=== PATIENT | male | born 1960 | race Caucasian/White ===

== ENCOUNTER → 2018-05-10 | Outpatient (CLI) | payer BC ==
--- NOTE | 2018-05-10 21:10 | CONS ---
CONSULTATION REASON FOR CONSULTATION: Consultation note for sleep apnea. 57-year-old male patient coming in due to concerns of obstructive sleep apnea. 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 Donovan. His PCP is Dr. Barron. The patient is obese and he has hypertension. Recently was hospitalized for cellulitis of lower extremities. During the same hospital stay, he was found to be a component of CHF with pulmonary edema and fluid overload. Apparently was given diuretics and he did have a short run of ventricular tachycardia nonsustained during sleep without any major hemodynamic compromise or cardiac arrest. He underwent further cardiac testing, results of which are not available to me. However based on the narrated history, the patient does not have any CHF or coronary artery disease based on negative stress test and echocardiogram. The patient was referred to me for sleep apnea evaluation knowing that the patient has some features of LINDA at this point in time. The cellulitis is recovered, lower extremity edema is recovered. He goes to bed around 2:00 p.m. wakes up 8:45 pm. Works at [employer] and his work schedule is between 10:30 pm till 6:30 am in the morning. After he arrives home, he does day-to-day activities and household activities to going to bed around 2:00 pm. He does snore. He has been told to quit breathing at times. He has been feeling more and more fatigued and tired during the day. Concord score is currently at 3. No restlessness in lower extremities. No chest pain or shortness of breath during sleep. PAST MEDICAL HISTORY: Hypertension, obesity, single episode of nonsustained ventricular tachycardia. History of cellulitis lower extremity, recovered, chronic lower extremity edema. PAST SURGICAL HISTORY: Negative. DRUG ALLERGIES: Questionable allergy to VANCOMYCIN. OUTPATIENT MEDICATION: List includes metoprolol 25 mg p.o. b.i.d., Lasix 20 mg p.o. b.i.d., aspirin 81 mg p.o. daily, potassium over the counter and Hyzaar 100/12.5, 1 tablet a day. SOCIAL HISTORY: The patient is a nonsmoker. No history of alcohol. No history of IV drugs. FAMILY HISTORY: Negative for sleep apnea. REVIEW OF SYSTEMS: 12-point review of system was done. No report of insomnia. No choking or gasping sensation at nighttime. No nocturia. No grinding of the teeth. No sleepwalking. No anxiety. No dry mouth. No panic attacks. No heartburn. No sleep talking. No sexual dysfunction. No history of depression. No sleep paralysis. No history of any motor vehicle accidents because of feeling drowsy or sleepy. PHYSICAL EXAMINATION: His current vital signs are as follows. BP is 123/67, pulse 56, respirations 16, temp 97.6, saturation 96% on room air. Weight is 342. Height is 74 inches and Concord score is a 3, BMI is 44.8, neck size 18. General appearance: Calm, comfortable. Head is atraumatic, normocephalic. NECK: Supple. There is no JVD. No goiter or neck masses. LUNGS: Clear to auscultation. HEART: Sounds regular rhythm. Normal S1, S2. No S3, S4. No murmurs. ABDOMEN: Soft, nontender. No organomegaly. EXTREMITIES: No edema. No cyanosis or clubbing. NEUROLOGIC: Alert and oriented x3. There is no focal neurological deficits. PSYCHIATRIC: Negative for anxiety or depression. Skin is negative for wounds or ulceration. IMPRESSION: 1. Obstructive sleep apnea clinically suspected, under investigation, will need a sleep study. 2. Episodes of nonsustained ventricular tachycardia occurred nocturnally during a recent hospital stay. None since. 3. Hypertension. 4. Obesity with a BMI of 44.8. 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 PLAN: 1. Proceed with a screening polysomnogram. 2. Look for nocturnal arrhythmias for any form of sleep breathing disorder. 3. Encourage weight loss. 4. Tight control of cardiovascular risk factors. 5. Will follow. MMODL / IJN: [id number] /
== END | disposition home or self-care (01) ==
LOC: SLEEP 13:41
PROVIDERS: ATTEND Internal Medicine Critical Care Medicine
DX: G47.30 Sleep apnea, unspecified (principal); I10 Essential (primary) hypertension; E66.9 Obesity, unspecified; Z68.41 Body mass index [BMI] 40.0-44.9, adult; Z79.899 Other long term (current) drug therapy; Z79.82 Long term (current) use of aspirin; Z88.1 Allergy status to other antibiotic agents
CPT/HCPCS: 99211

== ENCOUNTER → 2021-12-04 | Outpatient (CLI) | payer BC ==
[2021-12-04 12:25] LABS: HGB 15.7 gm/dL (13.0-17.5); MCH 32.3 pg (25.0-35.0); MCHC 32.7 g/dL (31.0-37.0); MCV 98.9 fL (80.0-100.0); Mean Platelet Volume 7.4; Platelet Count 241 k/uL (150-450); RBC 4.85 m/uL (4.30-5.90); RDW 12.5 % (11.5-15.5); WBC 10.6 k/uL (3.8-10.6)
[2021-12-04 18:21] LABS: African American GFR (CKD) 107.2 (60.0-200.0); Anion Gap 10.8 mmol/L (10.00-18.00); Blood Urea Nitrogen 9.8 mg/dL (9.0-27.0); Carbon Dioxide 27.2 mmol/L (20.0-27.5); Non-African American GFR(CKD) 92.5 (60.0-200.0); Potassium 4.8 mmol/L (3.5-5.5)
== END | disposition home or self-care (01) ==
LOC: LABPAT 11:15
PROVIDERS: ATTEND Internal Medicine Interventional Cardiology
DX: Z01.812 Encounter for preprocedural laboratory examination (principal); I34.0 Nonrheumatic mitral (valve) insufficiency
CPT/HCPCS: 36415; 80051; 82565; 84520; 85027

== ENCOUNTER 2021-12-24 06:22 | Day surgery (SDC) | payer BC ==
[2021-12-22 10:38] VITALS: BMI 35.9
[~2021-12-24 06:22] MED LIST: ALPRAZolam 0.25 MG TAB PO PRN; ALPRAZolam 0.5 MG TAB PO PRN; ASPIRIN 325 MG TAB PO STA; ATORVASTATIN 80 MG TAB PO STA; NITROGLYCERIN SL TABS 0.4 MG TAB SUBLINGUAL PRN; SODIUM CHLORIDE 0.9% 1,000 ML in EMPTY BAG 1 BAG IV SCH
[2021-12-24] MEDS ORDERED: HEPARIN SODIUM,PORCINE 2,500 UNIT in SODIUM CHLORIDE 0.9% 250 ML IRRIGATION PRN (07:00)
[2021-12-24] MEDS ORDERED: HEPARIN SODIUM,PORCINE 10,000 UNIT in SODIUM CHLORIDE 0.9% 1,000 ML IRRIGATION PRN (07:00)
[2021-12-24 07:14] VITALS: TEMP 97.4
[2021-12-24] MEDS ORDERED: VERAPAMIL 2.5 MG/ML 2 ML AMP ONE (07:28)
[2021-12-24] MEDS ORDERED: LIDOCAINE 1% INJ 10MG/ML (20 ML MDV) ONE (07:28)
[2021-12-24] MEDS ORDERED: fentaNYL (PF) 50 MCG/ML 2 ML AMP ONE (07:28)
[2021-12-24] MEDS ORDERED: fentaNYL (PF) 50 MCG/ML 2 ML AMP IV ONE (07:39)
[2021-12-24] MEDS ORDERED: LIDOCAINE 1% INJ 10MG/ML (20 ML MDV) SQ ONE (07:39)
[2021-12-24] MEDS ORDERED: HEPARIN SODIUM 1,000 UN/ML (10ML VL) ONE (07:41)
[2021-12-24] MEDS ORDERED: VERAPAMIL SYRINGE (5 MG/10 ML) INTRAARTER ONE (07:42)
[2021-12-24] MEDS ORDERED: MIDAZOLAM 2 MG/2 ML VIAL IV ONE (07:44)
[2021-12-24] MEDS ORDERED: HEPARIN SODIUM 1,000 UN/ML (10ML VL) IV ONE (08:00)
[2021-12-24 08:07] LABS: O2 Sat Blood Gas 68.9 %
[2021-12-24 08:09] LABS: O2 Sat Blood Gas 69.2 %
[2021-12-24] MEDS ORDERED: IOPAMIDOL-370 125ML BTL INJ ONE (08:10)
[2021-12-24] MEDS ORDERED: RX INFO: IV CONTRAST WAS GIVEN 1 EACH MISC MISCELLANE PRN (08:19)
[2021-12-24] MEDS ORDERED: SODIUM CHLORIDE 0.9% 1,000 ML IV SCH (08:30)
--- NOTE | 2021-12-24 08:30 | P.CARDCATH ---
Date of Procedure: 12/24/21 Description of Procedure: Cardiac Catheterization: The patient is a 61-year-old male who has severe eccentric mitral regurgitation with symptoms of progressive dyspnea. Recommendations were made regarding cardiac catheterization, the risks and the complications were discussed with the patient who is in full understanding and agreement. Procedure Description: Patient was brought to senior laboratory technician in fasting semi-sedated state after receiving Fentanyl and Benadryl achieiving moderate conscious sedated state. Using Xylocaine Anesthesia and Seldinger technique, a 6-[place] sheath was introduced in the right radial artery . The right cephalic intravenous access was exchanged to a 6-[place] sheath. Right heart catheterization was performed using [place]-Domenico catheter, multiple samples and pressures were obtained.. Cardiac output by thermodilution was calculated. Subsequently, selective coronary angiography performed using a 5-[place] 3.5 bend Sandra catheter. Multiple views of the coronary artery including hemiaxial views were obtained. The 5-[place] pigtail catheter was used to cross the aortic valve and left ventricular gram was performed an LVEDP was calculated. Following that, catheter and sheath were removed. Hemostasis was obtained with deployment of TR band . The cephalic catheter was removed and pressure was applied. There was no immediate complication. Patient was returned to room in stable condition. Of note, the patient received a total of 5000 units of intravenous heparin as well as intra-arterial verapamil. There was no immediate complications. Findings: Hemodynamics: Pulmonary artery systolic pressure 58 diastolic 20 with a mean of 30 mmHg, pulmonary capillary wedge pressure A wave 18, V wave 26 with a mean of 16 mmHg, right ventricle systolic of 54, diastolic 4 with a mean of 12 minutes of mercury, right atrium A wave of 10 V wave of 10 with a mean of 8 mmHg, there was no gradient across the aortic valve, LVEDP 16-20 mmHg. Cardiac output by thermodilution 6.5 L/m and by Maria Ines 6.6 L/m. Pulmonary artery saturation 69% right atrial saturation 69% arterial saturation 95%. Left main: This is a large size vessel, bifurcating into LAD and left circumflex, left main has no high-grade stenosis LAD: This is a large size vessel reaching the apex with a wraparound the apex segment, the LAD has no evidence of high-grade stenosis Left circumflex: This is a nondominant vessel giving rise to a large obtuse marginal branch that has no evidence of high-grade stenosis RCA: This is a dominant vessel bifurcating to PDA and PLV, it has a high bifurcation. RCA has no evidence of stenosis [Left] Ventriculogram: Performed in the 30 WARREN view, left ventricle systolic function was normal with 4+ mitral regurgitation Conclusion: 1. Normal coronary arteries 2. 4+ mitral regurgitation 3. [id number] pulmonary hypertension 4. Right dominance Recommendations: In view of the findings and the anatomy have recommended to proceed with evaluation for mitral valve repair, he will be seen by Dr. Hannah for further evaluation. Those findings and recommendation were discussed with the patient and his family. Duration of sedation is 35 minutes.
[2021-12-24 08:49] VITALS: PULSE 54
[2021-12-24] MEDS ORDERED: ASPIRIN 81 MG PO SCH (09:00)
[2021-12-24 09:58] VITALS: BP 126/73; RESP 16
--- NOTE | 2021-12-24 11:32 | US ---
EXAMINATION TYPE: US carotid duplex BILAT DATE OF EXAM: 12/24/2021 COMPARISON: NONE CLINICAL HISTORY: preop cardiac surgery. EXAM MEASUREMENTS: RIGHT: Peak Systolic Velocity (PSV) cm/sec ----- Right CCA: 87.7 ----- Right ICA: 92.9 ----- Right ECA: 65.0 ICA/CCA ratio: 1.06 RIGHT: End Diastole cm/sec ----- Right CCA: 21.4 ----- Right ICA: 30.5 ----- Right ECA: 0.0 LEFT: Peak Systolic Velocity (PSV) cm/sec ----- Left CCA: 83.8 ----- Left ICA: 85.8 ----- Left ECA: 96.1 ICA/CCA ratio: 10.2 LEFT: End Diastole cm/sec ----- Left CCA: 16.9 ----- Left ICA: 30.5 ----- Left ECA: 14.3 VERTEBRALS (direction of flow): Right Vertebral: Antegrade Left Vertebral: Antegrade Rhythm: Normal Grayscale, color Doppler, spectral Doppler imaging performed of the carotid arteries. Waveform anal ysis does not show significant stenosis of the internal carotid arteries. No significant stenosis se en. IMPRESSION: No hemodynamic significant stenosis of the proximal internal carotid arteries by Doppler criteria, an indirect measurement of carotid stenosis Criteria for Assigning % of Stenosis / Diameter reduction (Estimation based on the indirect measurements of the internal carotid artery velocities (ICA PSV). 1. Normal (no stenosis)=ICA PSV < 125 cm/s: ratio < 2.0: ICA EDV<40 cm/s. 2. Less than 50% stenosis=ICA PSV < 125 cm/s: ratio < 2.0: ICA EDV<40 cm/s. 3. 50 to 69% stenosis=ICA PSV of 125 to 230 cm/s: ration 2.0 ? 4.0: ICA EDV 40-100 cm/s. 4. Greater than 70% stenosis to near occlusion= ICA PSV > 230 cm/s: ratio > 4.0: ICA EDV > 100 cm/s. 5. Near occlusion= ICA PSV velocities may be low or undetectable: variable ratio and ICA EDV. 6. Total occlusion=unable to detect flow.
[2021-12-24 12:36] LABS: Appearance,Urine Clear (Clear); Bilirubin,Urine Negative (Negative); Blood,Urine Negative (Negative); Color,Urine Yellow; Glucose,Urine (UA) Negative (Negative); Ketones,Urine Negative (Negative); Leukocyte Esterase,Urine Negative (Negative); Nitrite,Urine Negative (Negative); Protein,Urine Negative (Negative); Urobilinogen,Urine <2.0 mg/dL (<2.0)
--- NOTE | 2021-12-24 12:47 | P.GSCN ---
History of Present Illness Consult date: 12/24/21 Reason for Consult: mitral valve regurgitation Requesting physician: Evelio Donovan History of present illness: This is a 61 year old male who follows on an outpatient basis with Dr. Brendon Bhatia for primary care and Dr. Donovan for cardiology. 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 The patient reports no personal history of atrial fibrillation, he remains unvaccinated from [employer]. He has been experiencing episodes of mild shortness of breath and lower extremity edema. He has been followed for mitral regurgitation for some time by Dr. Donovan, last surface echo in the office was 11/18/21 which demonstrated moderate to severe eccentric MR with mild to moderate tricuspid regurgitation, normal systolic function with EF 55-60%, and grade 2 diastolic dysfunction. Due to his symptoms he was recommended to undergo transesophageal echocardiogram and heart catheterization. The SUDHEER completed 11/28/21 demonstrated severe eccentric mitral regurgitation with prolapse of the leaflet and ruptured chordae with mild TR. His heart catheterization was completed today which demonstrated normal coronary arteries, 4+ mitral regurgitation, and mild to moderate pulmonary hypertension. Consultation was placed to Dr. Hannah for mitral valve repair. 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, remote hx of pna, venous insufficiency with cellulitis History of Any Multi-Drug Resistant Organisms: None Reported Past Surgical History: Adenoidectomy, Heart Catheterization, Tonsillectomy Additional Past Surgical History / Comment(s): RIGHT BICEP TENDON REPAIR, HEART CATH ([facility] 2002), Past Anesthesia/Blood Transfusion Reactions: No Reported Reaction, Motion Sickness Past Psychological History: No Psychological Hx Reported Smoking Status: Never smoker Past Alcohol Use History: Occasional Past Drug Use History: None Reported - Past Family History Mother Family Medical History: Congestive Heart Failure (CHF), Renal Disease Father Family Medical History: No Reported History Additional Family Medical History / Comment(s): at old age Sister(s) Family Medical History: AFIB Medications and Allergies Home Medications Medication Instructions Recorded Confirmed Type Ascorbic Acid [Vitamin C] 1,000 mg PO BID 11/24/21 12/24/21 History Aspirin 81 mg PO DAILY 11/24/21 12/24/21 History Furosemide [Lasix] 40 mg PO DAILY PRN 11/24/21 12/24/21 History Losartan [Cozaar] 50 mg PO DAILY 11/24/21 12/24/21 History Metoprolol Tartrate [Lopressor] 25 mg PO BID 11/24/21 12/24/21 History Multivit-Min/FA/Lycopen/Lutein 1 each PO DAILY 11/24/21 12/24/21 History [Centrum Silver Men Tablet] Allergies Allergy/AdvReac Type Severity Reaction Status Date / Time vancomycin Allergy Unknown RED-MAN Verified 12/22/21 10:29 SYNDROME Surgical - Exam Vital Signs Temp Pulse Resp BP Pulse Ox 97.4 F L 69 16 144/96 97 12/24/21 07:00 12/24/21 07:00 12/24/21 07:00 12/24/21 07:00 12/24/21 07:00 CONSTITUTIONAL: Awake and alert, appears comfortable, cooperative, well- developed, well-nourished, no pain, no acute distress EYES: Pupils equal, round, reactive to light, normal ocular movement ENT: Moist mucous membranes without oral lesions present NECK: No masses, no bruits, trachea midline RESPIRATORY: Lungs sounds clear to auscultation bilaterally. Respirations even, nonlabored. Currently on room air with oxygen saturation 97%. Strong cough. No chest wall deformities. No clubbing or cyanosis present CARDIOVASCULAR: S1, S2 present, systolic murmur present. Regular rate and rhythm, sinus rhythm to sinus bradycardia on telemetry. Palpable peripheral pulses bilaterally. Trace bilateral lower extremity edema present. No calf pain or tenderness noted. No significant lower extremity varicosities noted. GASTROINTESTINAL: Abdomen soft, nontender, nondistended without masses or organomegaly noted. There is no rebound or guarding present. Active bowel sounds present 4 quadrants. GENITOURINARY: Deferred INTEGUMENTARY: Skin is warm and dry with evidence of good perfusion. Right radial heart catheterization site without drainage, T band present NEUROLOGIC: Cranial nerves II through XII intact, normal coordination, no obvious motor or sensory deficits, speech is normal MUSKULOSKELETAL: Able to move all extremities, strength equal bilaterally, normal posture PSYCHIATRIC: Alert and oriented to person place and time, appropriate affect, intact judgment and insight Results - Labs 12/24/21 11:01 12/24/21 11:01 - Imaging Chest x-ray: report reviewed, image reviewed Additional studies: Heart catheterization and SUDHEER films reviewed with Dr. Hannah Assessment and Plan Assessment: 1. Severe eccentric mitral regurgitation 2. Hypertension 3. 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 Remote history of pneumonia 5. Family history of heart failure, GERD, and atrial fibrillation 6. Remains unvaccinated against Covid Plan: The patient was seen and examined at the bedside in the extended stay unit with Dr. Hannah. Chart/diagnostics were reviewed. The usual perioperative course of mitral valve repair was discussed in detail with the patient and his , risks and benefits were reviewed, all questions were answered. The patient does consent to surgery. Preoperative testing was initiated. Tentatively we scheduled the patient for elective mitral valve repair with possible replacement, ligation of the left atrial appendage on 01/05/[address] Hannah. Continue current medication therapy. We will attempt to get dental clearance from the patient's dentist who he saw 2 weeks ago, the patient reports regular dental checkups every 6 months. More recommendations to follow. Thank you Dr. Donovan for this consult. Time with Patient: Greater than 30
--- NOTE | 2021-12-24 13:01 | XR ---
EXAMINATION TYPE: XR chest 2V DATE OF EXAM: 12/24/2021 COMPARISON: NONE HISTORY: Preop open heart surgery TECHNIQUE: Frontal and lateral views of the chest are obtained. FINDINGS: There is no focal air space opacity, pleural effusion, or pneumothorax seen. The cardiac silhouette size is within normal limits. There are extensive coronary artery calcifications. Thoracic spondylosis is present. The osseous structures are intact. IMPRESSION: No acute cardiopulmonary process.
[2021-12-24 13:09] LABS: Specific Gravity,Urine 1.046 (1.001-1.035)
[2021-12-24 19:15] LABS: Hepatitis A Antibody IgM Nonreactive (Nonreactive); Hepatitis B Core IgM Nonreactive (Nonreactive); Hepatitis B Surface Antigen Nonreactive (Nonreactive); Hepatitis C IgG Antibody Nonreactive (Nonreactive)
[2021-12-24] MEDS ORDERED: METOPROLOL TARTRATE 25 MG TAB PO SCH (21:00)
[2021-12-25] MEDS ORDERED: LOSARTAN 50 MG TAB PO SCH (09:00)
== END 2021-12-24 12:27 | disposition home or self-care (01) ==
LOC: CATHCVL 06:22
PROVIDERS: ATTEND Internal Medicine Interventional Cardiology
DX: I34.0 Nonrheumatic mitral (valve) insufficiency (principal); I10 Essential (primary) hypertension; I27.20 Pulmonary hypertension, unspecified; Z98.890 Other specified postprocedural states; Z20.822 Contact with and (suspected) exposure to COVID-19; Z82.49 Family history of ischemic heart disease and other diseases of the circulatory system; Z87.891 Personal history of nicotine dependence; Z83.79 Family history of other diseases of the digestive system; Z87.01 Personal history of pneumonia (recurrent); Z79.82 Long term (current) use of aspirin; Z79.899 Other long term (current) drug therapy; Z88.1 Allergy status to other antibiotic agents
CPT/HCPCS: 94150; 93460; 86900; 86901; 84439; 80061; 80053; 80074; 85018; 84443; 82810; 83735; 85025; 85610; 85730; 86850; 86920; 81003; 83036; 87635; 71046; 93880; C1769 ×2; C1894; C1751; J2250; J2001; J3010; J1644; Q9967

== ENCOUNTER 2022-01-05 05:39 | Inpatient (IN) | payer BC ==
[2021-12-24 11:48] LABS: Basophils % (A) 0 %; Eosinophils # (A) 0.1 k/uL (0-0.7); Eosinophils % (A) 1 %; HCT 45.1 % (39.0-53.0); HGB 15.2 gm/dL (13.0-17.5); Lymphocytes # (A) 2.4 k/uL (1.0-4.8); Lymphocytes % (A) 29 %; MCH 33.5 pg (25.0-35.0); MCHC 33.7 g/dL (31.0-37.0); MCV 99.3 fL (80.0-100.0); Mean Platelet Volume 7.7; Monocytes # (A) 0.7 k/uL (0-1.0); Monocytes % (A) 8 %; Neutrophils # (A) 5.1 k/uL (1.3-7.7); Neutrophils % (A) 61 %; Platelet Count 222 k/uL (150-450); RBC 4.54 m/uL (4.30-5.90); RDW 12.7 % (11.5-15.5); WBC 8.5 k/uL (3.8-10.6)
[2021-12-24 12:03] LABS: Prothrombin Time 10.9 sec (9.0-12.0)
[2021-12-24 12:05] LABS: ALT 21 U/L (4-49); AST 27 U/L (17-59); African American GFR (CKD) >90 (>60 ml/min/1.73 sqM); Albumin 4.2 g/dL (3.5-5.0); Alkaline Phosphatase 58 U/L (38-126); Anion Gap 10 mmol/L; Blood Urea Nitrogen 11 mg/dL (9-20); Carbon Dioxide 22 mmol/L (22-30); Chloride 105 mmol/L (98-107); Glucose 125 mg/dL (74-99); Non-African American GFR(CKD) >90 (>60 ml/min/1.73 sqM); Potassium 4.2 mmol/L (3.5-5.1); Sodium 137 mmol/L (137-145); Total Bilirubin 1.4 mg/dL (0.2-1.3)
[2021-12-24 13:40] LABS: T4, Free (Free Thyroxine) 1.31 ng/dL (0.78-2.19)
[2021-12-24 22:29] LABS: Chol/HDL Ratio 3.78 Ratio; LDL Cholesterol,Calculated 83.3 mg/dL (0.0-131.0); VLDL Calculation 19.66 mg/dL (5.00-40.00)
[~2022-01-05 05:39] MED LIST changes: +ALBUMIN HUMAN 25% 50 ML IV ONE; +ALBUMIN HUMAN 5% 500 ML IVPB ONE; -ALPRAZolam 0.25 MG TAB PO PRN; -ALPRAZolam 0.5 MG TAB PO PRN; +ASPIRIN 325 MG TAB PO ONE; -ASPIRIN 325 MG TAB PO STA; +ATORVASTATIN 10 MG TAB PO ONE; -ATORVASTATIN 80 MG TAB PO STA; +CALCIUM CHLORIDE 100 MG/ML 10 ML SYRINGE IV ONE; +CARDIOPLEGIC SOLN (K+ 16 MEQ/L 1,000 ML with SODIUM BICARB (1 MEQ/ML) 20 ML, LIDOCAINE ... PERFUSION ONE; +CHLORHEXIDINE GLUCONATE 15 ML CUP MUCOUS MEM ONE; +CLEVIDIPINE BUTYRATE 25 MG in EMPTY BAG 1 BAG IV ONE; +HEPARIN SODIUM 1,000 UN/ML (10ML VL) IV ONE; +HEPARIN SODIUM,PORCINE 5,000 UNIT in SODIUM CHLORIDE 0.9% 500 ML 500 ML IV ONE; +INSULIN REGULAR 100 UNIT in SODIUM CHLORIDE 0.9% 100 ML IV ONE; +LACTATED RINGERS 1,000 ML IV ONE; +MAGNESIUM SULFATE 16.24 MEQ in EMPTY SYRINGE 1 SYR IV ONE; +MANNITOL 25% 12.5 GM/50 ML VIAL IV ONE; +METOPROLOL TARTRATE 12.5 MG TAB PO ONE; +MUPIROCIN 2% OINT 22 GM TUBE NASAL ONE; +NITROGLYCERIN SL TABS 0.4 MG TAB SUBLINGUAL ONE; -NITROGLYCERIN SL TABS 0.4 MG TAB SUBLINGUAL PRN; +NITROGLYCERIN-D5W PMX 25 MG/250 ML BTL IV ONE; +NITROGLYCERIN-D5W PMX 50 MG in DEXTROSE/WATER 1 250ML.BAG IV ONE; +NOREPINEPHRINE 4 MG in SODIUM CHLORIDE 0.9% 250 ML IV ONE; +PAPAVERINE 360 MG in SODIUM CHLORIDE 0.9% 90 ML IV ONE; +PHENYLEPHRINE 10 MG/ML VIAL IV ONE; +PHENYLEPHRINE 40 MG in SODIUM CHLORIDE 0.9% 250 ML IV ONE; +PROTAMINE SULFATE 10 MG/ML 25 ML VIAL IV ONE; +PROTAMINE SULFATE 250 MG in EMPTY BAG 1 BAG IV ONE; +SODIUM BICARB 8.4% 50 ML SYR (1 MEQ/ML) IV ONE; +SODIUM CHLORIDE 0.9% 1,000 ML IV ONE; -SODIUM CHLORIDE 0.9% 1,000 ML in EMPTY BAG 1 BAG IV SCH; +TRANEXAMIC ACID 2,000 MG in SODIUM CHLORIDE 0.9% 80 ML IV ONE; +ceFAZolin 1,000 MG in SODIUM CHLORIDE 0.9% IRRIGATIO 1,000 ML IRRIGATION ONE; +ceFAZolin 3 GM in SODIUM CHLORIDE 0.9% 100 ML IVPB ONE; +propofoL 1,000 MG/100 ML VIAL IV ONE
[2022-01-05 06:27] LABS: Glucose,Whole Blood 100 mg/dL (75-99)
--- NOTE | 2022-01-05 07:01 | P.PN ---
Progress Note - Text Progress Note Date: 01/05/22 5 meter walk test completed without difficulty: #1 3.88 sec #2 3.33 sec #3 4.02 sec
[2022-01-05] MEDS ORDERED: PHENYLEPHRINE-0.9% NACL SYG 1,000 MCG/10 ML SYRINGE ONE (07:46)
[2022-01-05] MEDS ORDERED: VECURONIUM 10 MG VIAL IV ONE (07:46)
[2022-01-05] MEDS ORDERED: MIDAZOLAM 2 MG/2 ML VIAL ONE (07:46)
[2022-01-05] MEDS ORDERED: ceFAZolin 1,000 MG VIAL ONE (07:46)
[2022-01-05] MEDS ORDERED: HEPARIN SODIUM,PORCINE 10,000 UNIT/ML 1 ML VIAL ONE (07:46)
[2022-01-05] MEDS ORDERED: SODIUM CHLORIDE 0.9% IRRIG 1,000 ML BTL IRRIGATION ONE (07:46)
[2022-01-05] MEDS ORDERED: ELECTROLYTE-R (PH 7.4) 1,000 ML IV.SOLN IV ONE (07:46)
[2022-01-05] MEDS ORDERED: SODIUM CHLORIDE 0.9% 100 ML BAG ONE (07:46)
[2022-01-05] MEDS ORDERED: PROPOFOL 10 MG/ML 20 ML VIAL IV ONE (07:46)
[2022-01-05] MEDS ORDERED: TRANEXAMIC ACID 1,000 MG/10 ML VIAL ONE (07:46)
[2022-01-05] MEDS ORDERED: PROTAMINE SULFATE 10 MG/ML 25 ML VIAL IV ONE (07:46)
[2022-01-05] MEDS ORDERED: SODIUM CHLORIDE 0.9% 250 ML BAG ONE (07:46)
[2022-01-05] MEDS ORDERED: fentaNYL (PF) 50 MCG/ML 50 ML VIAL ONE (07:46)
[2022-01-05 08:33] LABS: ABG Base Excess 1.7 mmol/L; ABG Glucose Whole Blood 98 mg/dL (75-99); ABG HCO3 28 mmol/L (21-25); ABG Hematocrit 43 % (34.0-46.0); ABG Ionized Calcium 4.7 mg/dL (4.5-5.3); ABG Oxygen Saturation 98.6 % (94-97); ABG PCO2 49 mmHg (35-45); ABG PH 7.36 (7.35-7.45); ABG PO2 134 mmHg (83-108); ABG Potassium Whole Blood 3.9 mmol/L (3.4-4.5); ABG Sodium Whole Blood 140 mmol/L (135-146); ABG TCO2 29 mmol/L (19-24)
[2022-01-05 09:20] LABS: ABG Base Excess 1.6 mmol/L; ABG Glucose Whole Blood 110 mg/dL (75-99); ABG HCO3 27 mmol/L (21-25); ABG Hematocrit 40 % (34.0-46.0); ABG Ionized Calcium 4.5 mg/dL (4.5-5.3); ABG Lactic Acid Whole Blood 0.9 mmol/L (0.5-1.6); ABG Oxygen Saturation 98.3 % (94-97); ABG PCO2 47 mmHg (35-45); ABG PH 7.38 (7.35-7.45); ABG PO2 118 mmHg (83-108); ABG Potassium Whole Blood 3.9 mmol/L (3.4-4.5); ABG Sodium Whole Blood 139 mmol/L (135-146); ABG TCO2 29 mmol/L (19-24)
[2022-01-05 10:02] LABS: ABG Base Excess 0.2 mmol/L; ABG Glucose Whole Blood 106 mg/dL (75-99); ABG HCO3 27 mmol/L (21-25); ABG Hematocrit 34 % (34.0-46.0); ABG Ionized Calcium 4.4 mg/dL (4.5-5.3); ABG Lactic Acid Whole Blood 0.7 mmol/L (0.5-1.6); ABG Oxygen Saturation 99.5 % (94-97); ABG PCO2 50 mmHg (35-45); ABG PH 7.34 (7.35-7.45); ABG PO2 257 mmHg (83-108); ABG Potassium Whole Blood 4.3 mmol/L (3.4-4.5); ABG Sodium Whole Blood 137 mmol/L (135-146); ABG TCO2 28 mmol/L (19-24)
--- NOTE | 2022-01-05 10:10 | P.ANPRN ---
Procedure Note - Anesthesia - Invasive Line Central Line Time Out Performed: Yes (733) Date of Procedure: 01/05/22 Time of Procedure: 07:34 Location of Patient: Phase I Preparation: Sterile Prep, Sterile Dressing Arterial Line Location: Radial (left) Ultrasound Used: Yes Purpose - Visualization and Identification of Vasculature: Yes Needle Guage: 18g angio Image Stored and Saved: Yes Narrative: Central line placement per sterile protocol utilized. +local +US +angio +cvp +jwire +uneventful dilation and introduction right IJ Cordis 8.5f. Catheter bled and flushed. Non pulsitile
--- NOTE | 2022-01-05 10:12 | P.ANPRN ---
Procedure Note - Anesthesia - Invasive Line Right Towanda Domenico Time Out Performed: Yes (733) Date of Procedure: 01/05/22 Time of Procedure: 07:47 Location of Patient: Phase I Arterial Line Location: Radial (left) Ultrasound Used: No Purpose - Visualization and Identification of Vasculature: No Image Stored and Saved: No Narrative: Central line placement per sterile protocol utilized. PA cath floated in one attempt in sheath under sterile conditions. Wedge 58cm. balloon down and withdrawn to 53cm. secured
[2022-01-05 10:31] LABS: ABG Base Excess 0.3 mmol/L; ABG Glucose Whole Blood 121 mg/dL (75-99); ABG HCO3 27 mmol/L (21-25); ABG Hematocrit 33 % (34.0-46.0); ABG Ionized Calcium 4.4 mg/dL (4.5-5.3); ABG Lactic Acid Whole Blood 0.8 mmol/L (0.5-1.6); ABG Oxygen Saturation 99.6 % (94-97); ABG PCO2 49 mmHg (35-45); ABG PH 7.34 (7.35-7.45); ABG PO2 368 mmHg (83-108); ABG Potassium Whole Blood 4.4 mmol/L (3.4-4.5); ABG Sodium Whole Blood 137 mmol/L (135-146); ABG TCO2 28 mmol/L (19-24)
[2022-01-05 10:59] LABS: ABG Base Excess -0.8 mmol/L; ABG Glucose Whole Blood 125 mg/dL (75-99); ABG HCO3 26 mmol/L (21-25); ABG Hematocrit 35 % (34.0-46.0); ABG Ionized Calcium 4.4 mg/dL (4.5-5.3); ABG Lactic Acid Whole Blood 1.3 mmol/L (0.5-1.6); ABG Oxygen Saturation 99.5 % (94-97); ABG PCO2 51 mmHg (35-45); ABG PH 7.31 (7.35-7.45); ABG PO2 311 mmHg (83-108); ABG Potassium Whole Blood 4.6 mmol/L (3.4-4.5); ABG Sodium Whole Blood 138 mmol/L (135-146); ABG TCO2 28 mmol/L (19-24)
--- NOTE | 2022-01-05 12:05 | P.OP ---
Date of Procedure: 01/05/22 Preoperative Diagnosis: mitral regurgitation Postoperative Diagnosis: same Procedure(s) Performed: Complex mitral valve repair with resection of chordae from P2 and plication of the edge of P2 leaflet, annuloplasty with a 28 physio-2 ring, ligation of left atrial appendage, epi-aortic ultrasound Implants: 28 physio-2 ring Anesthesia: NATE Surgeon: Dimitry Hannah Nursing Support Worker #1: Gagandeep Thakkar Nursing Support Worker #2: Pratik Carrillo Estimated Blood Loss (ml): 500 IV fluids (ml): 1,000 Urine output (ml): 500 Pathology: other (Chordae from posterior leaflet mitral valve) Condition: stable Disposition: ICU Indications for Procedure: 61-year-old male presents with worsening dyspnea on exertion. Found to have severe mitral regurgitation with evidence of torn chordae of the P2 leaflet. There was no flail and only mild prolapse. Coronary arteries were normal. Operative Findings: Posterior annulus was mildly dilated. There were torn chordae at the edge of the P2 leaflet. These were surrounded by normal cords. There was no flail segment of leaflet. On completion of the repair, SUDHEER demonstrated no evidence of mitral regurgitation. Description of Procedure: The patient was brought to the operating room, placed supine on the operating room table, anesthetized and intubated. [place]-Domenico catheter and radial arterial line had been placed in the preop holding area. Abreu and SUDHEER probe were placed. The anterior torso and lower extremities were sterilely prepped in standard fashion. Midline sternotomy was performed. The left pleural space was opened fairly widely and drained with a 32-[place] chest tube. A small rent was made in the right pleura. Midline pericardiotomy was performed and the heart was exposed with pericardial sutures. Epi-aortic ultrasonography was performed in the ascending aorta appeared relatively normal. The patient was heparinized and cannulated for cardiopulmonary bypass. An 8 mm soft flow cannula was placed in the distal ascending aorta. 36 straight venous cannula was placed through the right atrium into the inferior vena cava and the 30 right angle cannula was placed in the superior vena cava. Antegrade and retrograde cardioplegia lines were placed in standard fashion. The patient was placed on cardiopulmonary bypass and stabilized. The interatrial groove was developed with electrocautery. Aorta was crossclamped and the heart was arrested with cold crystalloid antegrade cardioplegia followed by retrograde cardioplegia. Caval tapes were passed. The left atrium was entered through the interatrial groove and the mitral valve exposed with the Cielo retractor. The base of the left atrial appendage was oversewn with a 2 layer running closure of 3-0 Prolene from within the left atrium. Exposure of the valve was somewhat difficult due to the size of the patient. Circumferential valve annuloplasty sutures of 2-0 Tycron were placed and brought on tension in order to allow better visualization of the valve. The valve was tested and severe regurgitation was noted. The area of P2 with a torn cord was identified. 2 small chordae were resected in this area. Good chordae on either side were identified and protected with 5-0 Prolene sutures. The edge of the leaflet between these 2 chordae was then plicated with a 5-0 running Prolene. Sutures protecting the chordae were removed. The valve was again tested and noted to be fairly competent with minimal regurgitation. The anterior leaflet was sized and a 28 mm physio-2 ring was felt to be the appropriate size for the patient. Annuloplasty sutures were placed through the physio-2 ring and the ring was seated and the sutures tied and cut. The valve was now tested. Excellent coaptation was noted. There was no evidence of mitral regurgitation at this time. Atrium was irrigated and the atrium closed with a single layer running closure of 3-0 Prolene. The inferior vena caval c annula was pulled back into the right atrium. Superior vena caval cannula was clamped and removed and the pursestring tied. SUDHEER was used to confirm good de- airing of the ventricle and atrium. Aortic vent line was removed and reinforced with a 40 pledgeted Prolene suture. Retrograde cardioplegia cannula was also removed. Atrial and ventricular pacing wires were placed and the patient was initially paced but eventually returned to a normal sinus rhythm and left the OR without pacing. Patient was weaned from cardioplegic bypass without the need for inotropic support after appropriate rewarming from a juana of 34C. On separation SUDHEER demonstrated excellent ventricular function and no evidence of mitral regurgitation. Heparin was reversed with protamine and the patient was decannulated in standard fashion. Right atrial appendage cannulation site was reinforced with a 0 silk tie and the aortic cannulation site was reinforced with a 40 pledgeted Prolene suture. Good hemostasis was obtained obtained throughout. Left pleural space was drained with 32-[place] chest tube in the mediastinum with a 36-[place] chest tube. He decided was irrigated with antibiotic solution the sternum closed with 8 sternal wires. Fascia was closed with 0 Ethibond. Subcutaneous and subcuticular layers closed layers of Vicryl suture. Dry sterile dressings were applied and the patient was transferred to ICU in stable hemodynamic condition. No blood transfusions or inotropic support was required.
[2022-01-05 12:08] LABS: ABG Base Excess -0.8 mmol/L; ABG Glucose Whole Blood 110 mg/dL (75-99); ABG HCO3 25 mmol/L (21-25); ABG Hematocrit 40 % (34.0-46.0); ABG Ionized Calcium 4.5 mg/dL (4.5-5.3); ABG Lactic Acid Whole Blood 1.7 mmol/L (0.5-1.6); ABG Oxygen Saturation 99.1 % (94-97); ABG PCO2 44 mmHg (35-45); ABG PH 7.36 (7.35-7.45); ABG PO2 185 mmHg (83-108); ABG Potassium Whole Blood 4.5 mmol/L (3.4-4.5); ABG Sodium Whole Blood 138 mmol/L (135-146); ABG TCO2 26 mmol/L (19-24)
[2022-01-05] MEDS ORDERED: BENZOCAINE/MENTHOL LOZENG 1 EACH LOZENGE MUCOUS MEM PRN (12:18)
[2022-01-05] MEDS ORDERED: IPRATROPIUM-ALBUTEROL 3 ML NEB INHALATION PRN (12:18)
[2022-01-05] MEDS ORDERED: Magnesium Replacement Protocol 1 EACH MISC MISCELLANE PRN (12:18)
[2022-01-05] MEDS ORDERED: hydrALAZINE HCL 20 MG/ML 1 ML VIAL IVP PRN (12:18)
[2022-01-05] MEDS ORDERED: ONDANSETRON 4 MG/2 ML VIAL IVP PRN (12:18)
[2022-01-05] MEDS ORDERED: CALCIUM GLUCONATE 2 GM in SODIUM CHLORIDE 0.9% 100 ML IVPB PRN (12:18)
[2022-01-05] MEDS ORDERED: METOCLOPRAMIDE 5 MG/ML 2 ML VIAL IVP PRN (12:18)
[2022-01-05] MEDS ORDERED: Potassium Replacement Protocol 1 EACH MISC MISCELLANE PRN (12:18)
[2022-01-05] MEDS ORDERED: DEXTROSE 5% IN WATER 100 ML with AMIODARONE 150 MG IV PRN (12:18)
[2022-01-05] MEDS ORDERED: Phosphorus Replacement Protoco 1 EACH MISC MISCELLANE PRN (12:18)
[2022-01-05] MEDS ORDERED: AMIODARONE 360 MG in DEXTROSE 5% IN WATER 200 ML IV ONE ×2 (12:18)
[2022-01-05 13:05] LABS: Glucose,Whole Blood 110 mg/dL (75-99)
[2022-01-05 13:12] LABS: ABG Base Excess -0.6 mmol/L; ABG HCO3 27 mmol/L (21-25); ABG Oxygen Saturation 98.8 % (94-97); ABG PCO2 59 mmHg (35-45); ABG PH 7.26 (7.35-7.45); ABG PO2 239 mmHg (83-108); ABG TCO2 28 mmol/L (19-24)
[2022-01-05 13:13] LABS: Allen Test Performed? no
[2022-01-05] MEDS: LACTATED RINGERS 1,000 ML IV SCH (13:18)
[2022-01-05 13:20] LABS: Basophils % (A) 0 %; Eosinophils # (A) 0.1 k/uL (0-0.7); Eosinophils % (A) 0 %; HCT 40.1 % (39.0-53.0); HGB 13.7 gm/dL (13.0-17.5); Lymphocytes # (A) 1.2 k/uL (1.0-4.8); Lymphocytes % (A) 7 %; MCH 33.6 pg (25.0-35.0); MCV 98.7 fL (80.0-100.0); Mean Platelet Volume 7.7; Monocytes # (A) 0.9 k/uL (0-1.0); Monocytes % (A) 5 %; Neutrophils # (A) 15.4 k/uL (1.3-7.7); Neutrophils % (A) 87 %; Platelet Count 177 k/uL (150-450); RBC 4.07 m/uL (4.30-5.90); RDW 12.9 % (11.5-15.5); WBC 17.6 k/uL (3.8-10.6)
[2022-01-05 13:25] LABS: Ionized Calcium 4.9 mg/dL (4.5-5.3)
[2022-01-05] MEDS ORDERED: INSULIN REGULAR 100 UNIT in SODIUM CHLORIDE 0.9% 100 ML IV SCH (13:30)
[2022-01-05 13:31] LABS: INR 1.1 (<1.2); Partial Thromboplastin Time 28.4 sec (22.0-30.0); Prothrombin Time 11.6 sec (9.0-12.0)
--- NOTE | 2022-01-05 13:35 | XR ---
EXAMINATION TYPE: XR chest 1V portable DATE OF EXAM: 01/05/2022 COMPARISON: 12/24/2021 HISTORY: Postop TECHNIQUE: Single frontal view of the chest is obtained. FINDINGS: Postsurgical changes with ET and NG tube appear in good position. Suggestion of a possible epicardial lead correlate clinically. [place]-Domenico catheter seen with the tip overlying the proximal pu lmonary outflow tract. Mediastinal drain and chest tube seen with no sizable pneumothorax. Interstiti al pattern with bilateral infiltrate and small effusion. IMPRESSION: 1. Correlate for bilateral infiltrate or atelectasis with mild venous congestion. 2. Postoperative change
[2022-01-05 13:36] LABS: ALT 17 U/L (4-49); AST 34 U/L (17-59); African American GFR (CKD) >90 (>60 ml/min/1.73 sqM); Alkaline Phosphatase 43 U/L (38-126); Anion Gap 4 mmol/L; Blood Urea Nitrogen 10 mg/dL (9-20); Calcium 8.1 mg/dL (8.4-10.2); Carbon Dioxide 25 mmol/L (22-30); Chloride 108 mmol/L (98-107); Glucose 108 mg/dL (74-99); Non-African American GFR(CKD) >90 (>60 ml/min/1.73 sqM); Potassium 4.4 mmol/L (3.5-5.1); Sodium 137 mmol/L (137-145); Total Bilirubin 1.2 mg/dL (0.2-1.3); Total Protein 5.5 g/dL (6.3-8.2)
[2022-01-05] MEDS ORDERED: DEXMEDETOMIDINE/0.9% NACL(PMX) 400 MCG in EMPTY BAG 1 BAG IV SCH (14:00)
[2022-01-05] MEDS ORDERED: CLEVIDIPINE BUTYRATE 25 MG in EMPTY BAG 1 BAG IV SCH (14:00)
[2022-01-05 14:15] LABS: Glucose,Whole Blood 110 mg/dL (75-99)
[2022-01-05] MEDS: ACETAMINOPHEN IV (For NPO) 1,000 MG in EMPTY BAG 1 BAG IVPB SCH ×2 (14:18→21:27)
[2022-01-05 15:06] LABS: Glucose,Whole Blood 132 mg/dL (75-99)
[2022-01-05 15:47] LABS: ABG HCO3 24 mmol/L (21-25); ABG Oxygen Saturation 98.5 % (94-97); ABG PCO2 45 mmHg (35-45); ABG PH 7.33 (7.35-7.45); ABG PO2 171 mmHg (83-108); ABG TCO2 25 mmol/L (19-24)
[2022-01-05 15:49] LABS: Allen Test Performed? no
[2022-01-05] MEDS: IPRATROPIUM-ALBUTEROL 3 ML NEB INHALATION SCH ×3 (16:06→20:25)
[2022-01-05 16:10] LABS: Basophils % (A) 0 %; Eosinophils % (A) 0 %; HCT 42.1 % (39.0-53.0); HGB 13.8 gm/dL (13.0-17.5); Lymphocytes # (A) 0.9 k/uL (1.0-4.8); Lymphocytes % (A) 6 %; MCH 32.7 pg (25.0-35.0); MCHC 32.8 g/dL (31.0-37.0); MCV 99.5 fL (80.0-100.0); Mean Platelet Volume 7.6; Monocytes # (A) 1.3 k/uL (0-1.0); Monocytes % (A) 8 %; Neutrophils # (A) 14.2 k/uL (1.3-7.7); Neutrophils % (A) 85 %; Platelet Count 187 k/uL (150-450); RBC 4.24 m/uL (4.30-5.90); RDW 13.4 % (11.5-15.5); WBC 16.7 k/uL (3.8-10.6)
[2022-01-05 16:15] LABS: Glucose,Whole Blood 132 mg/dL (75-99)
[2022-01-05] MEDS: ALBUMIN HUMAN 5% 250 ML in EMPTY BAG 1 BAG IVPB PRN ×2 (16:20→16:28)
[2022-01-05] MEDS: ceFAZolin 3 GM in SODIUM CHLORIDE 0.9% 100 ML IVPB SCH ×2 (16:21→23:49)
--- NOTE | 2022-01-05 16:27 | P.CNPUL ---
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 Patient is now on assist control rate of 16, tidal volume is 500, FiO2 50% and PEEP of 10. ABG prior to this ABG showed a pO2 of 239, pCO2 of 59 pH of 7.26, hence the patient was placed on a rate of 16 from 12, and FiO2 cut down from 100% to 50%. Shortly after I saw the patient, CPAP ABG showed a pO2 of 171 pCO2 of 45 pH of 7.33, hen ce proceeded to extubating the patient, uneventfully. Chest x-ray showed mostly postoperative changes, no acute process was noted. 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, remote hx of pna, venous insufficiency with cellulitis History of Any Multi-Drug Resistant Organisms: None Reported Past Surgical History: Adenoidectomy, Heart Catheterization, Tonsillectomy Additional Past Surgical History / Comment(s): RIGHT BICEP TENDON REPAIR, HEART CATH x2 Past Anesthesia/Blood Transfusion Reactions: No Reported Reaction, Motion Sickness Additional Past Anesthesia/Blood Transfusion Reaction / Comment(s): no hx blood transfusion Past Psychological History: No Psychological Hx Reported Smoking Status: Never smoker Past Alcohol Use History: Occasional Past Drug Use History: None Reported - Past Family History Mother Family Medical History: Congestive Heart Failure (CHF), Renal Disease Additional Family Medical History / Comment(s): heart valve repair Father Family Medical History: No Reported History Additional Family Medical History / Comment(s): heart valve repair, at old age Sister(s) Family Medical History: AFIB Brother(s) Additional Family Medical History / Comment(s): heart valve repair Medications and Allergies Home Medications Medication Instructions Recorded Confirmed Type Ascorbic Acid [Vitamin C] 1,000 mg PO BID 11/24/21 12/30/21 History Aspirin 81 mg PO DAILY 11/24/21 12/30/21 History Furosemide [Lasix] 40 mg PO DAILY PRN 11/24/21 12/30/21 History Losartan [Cozaar] 50 mg PO DAILY 11/24/21 12/30/21 History Metoprolol Tartrate [Lopressor] 25 mg PO BID 11/24/21 12/30/21 History Multivit-Min/FA/Lycopen/Lutein 1 each PO DAILY 11/24/21 12/30/21 History [Centrum Silver Men Tablet] Mupirocin [Mupirocin 2%] 1 applic NASAL BID #1 tub 01/01/22 Rx Allergies Allergy/AdvReac Type Severity Reaction Status Date / Time vancomycin Allergy Unknown RED-MAN Verified 12/30/21 14:16 SYNDROME Physical Exam Vitals: Vital Signs Temp Pulse Pulse Resp BP BP BP 01/05/22 16:10 65 01/05/22 16:00 65 12 01/05/22 15:45 65 19 01/05/22 15:30 65 16 01/05/22 15:15 54 L 10 L 76/47 01/05/22 15:00 54 L 18 85/45 01/05/22 14:45 58 L 19 01/05/22 14:30 62 22 01/05/22 14:15 60 17 117/81 01/05/22 14:00 16 01/05/22 13:45 60 16 01/05/22 13:30 61 16 01/05/22 13:15 61 13 109/74 01/05/22 13:00 96.6 F L 62 12 105/73 01/05/22 12:45 61 12 01/05/22 12:30 60 01/05/22 06:02 97.8 F 50 L 20 143/86 142/88 Pulse Ox 01/05/22 16:10 01/05/22 16:00 95 01/05/22 15:45 98 01/05/22 15:30 95 01/05/22 15:15 96 01/05/22 15:00 98 01/05/22 14:45 100 01/05/22 14:30 99 01/05/22 14:15 100 01/05/22 14:00 95 01/05/22 13:45 98 01/05/22 13:30 97 01/05/22 13:15 100 01/05/22 13:00 99 01/05/22 12:45 01/05/22 12:30 01/05/22 06:02 97 Intake and Output 01/05/22 01/05/22 01/05/22 06:59 14:59 22:59 Intake Total 50 305.589 128.421 Output Total 2255 125 Balance 50 -1949.411 3.421 Intake: IV 50 302 100 ACETAMINOPHEN IV (For NPO 100 ) 1,000 mg In Empty Bag 1 bag @ 400 mls/hr IVPB Q6H MERVAT Rx#:[id number] Lactated Ringers 1,000 ml 100 100 @ 50 mls/hr IV .Q20H MERVAT Rx#:[id number] Intake, IV Titration 3.589 28.421 Amount Dexmedetomidine/0.9% NaCl 3.589 14.906 (Pmx) 400 mcg In Empty Bag 1 bag @ Titrate IV . Q0M MERVAT Rx#:[id number] propofoL 1,000 mg In 13.515 Empty Bag 1 bag @ Titrate IV .Q0M MERVAT Rx#: [id number] Output: Chest Tube Drainage 170 55 Left Pleural/Mediastinal 100 40 Mediastinal 70 15 Urine 585 70 Estimated Blood Loss 1500 Other: Voiding Method Indwelling Catheter Indwelling Catheter Weight 132.5 kg ABP, PAP, CO, CI - Last 8 Hours Arterial Blood Pressure 94/57 Arterial Blood Pressure 99/61 Arterial Blood Pressure 100/56 Arterial Blood Pressure 85/52 Arterial Blood Pressure 82/43 Arterial Blood Pressure 102/70 Arterial Blood Pressure 132/78 Arterial Blood Pressure 126/68 Arterial Blood Pressure 129/72 Arterial Blood Pressure 111/65 Arterial Blood Pressure 118/68 Pulmonary Artery Pressure 27/15 Pulmonary Artery Pressure 35/19 Pulmonary Artery Pressure 35/15 Pulmonary Artery Pressure 42/23 Pulmonary Artery Pressure 35/12 Pulmonary Artery Pressure 46/29 Pulmonary Artery Pressure 52/21 Pulmonary Artery Pressure 47/24 Pulmonary Artery Pressure 53/30 Pulmonary Artery Pressure 46/25 Pulmonary Artery Pressure 44/25 Pulmonary Artery Pressure 49/26 Pulmonary Artery Pressure 50/27 Pulmonary Artery Pressure 51/30 Cardiac Output 6.1 Cardiac Output 5.4 Cardiac Output 5.4 Cardiac Output 5.4 Cardiac Output 5.4 Cardiac Output 6 Cardiac Output 6 Cardiac Output 6 Cardiac Output 6.0 Cardiac Output 5.4 Cardiac Output 5.4 Cardiac Output 5.4 Cardiac Output 5.4 Cardiac Index 3.1 Cardiac Index 2.7 Cardiac Index 2.7 Cardiac Index 2.7 Cardiac Index 2.7 Cardiac Index 3 Cardiac Index 3 Cardiac Index 3 Cardiac Index 3.0 Cardiac Index 2.7 Cardiac Index 2.7 Cardiac Index 2.7 Cardiac Index 2.7 Physical Exam: Revealed a 61-year-old white male intubated, mechanically ventilated, in no distress. Head: Atraumatic, normocephalic. HEENT:[Neck is supple.] [No neck masses.] [No thyromegaly.] [No JVD.] Endotracheal tube and orogastric tube are intact. Chest: [Symmetrical chest expansion, crackles at the bases, 2 mediastinal chest tubes and 1 pleural chest tube was noted. Seems to be intact.] Cardiac Exam: Distant S1 and S2, 2/6 systolic murmur thought the precordium. Abdomen: [Soft, nontender, no megaly, no rebound, no guarding, normal bowel sounds.] Extremities: [No clubbing, no edema, no cyanosis.] Neurological Exam: Not assessed, patient is sedated. Psychiatric: Cannot be assessed, patient is sedated on propofol. Musculoskeletal: No deformities, good pulses bilaterally. Results - Laboratory Findings CBC and BMP: 01/05/22 15:18 01/05/22 12:52 ABG ABG pH 7.33 (7.35-7.45) L 01/05/22 15:43 ABG pCO2 45 mmHg (35-45) 01/05/22 15:43 ABG pO2 171 mmHg (83-108) H 01/05/22 15:43 ABG O2 Saturation 98.5 % (94-97) H 01/05/22 15:43 PT/INR, D-dimer PT 11.6 sec (9.0-12.0) 01/05/22 12:52 INR 1.1 (<1.2) 01/05/22 12:52 Abnormal lab findings: Abnormal Labs 12/24/21 12/24/21 01/05/22 11:01 11:01 06:16 WBC RBC Neutrophils # Lymphocytes # Monocytes # ABG pH ABG pCO2 ABG pO2 ABG HCO3 ABG Total CO2 ABG O2 Saturation ABG Hematocrit ABG Potassium ABG Ionized Calcium ABG Glucose ABG Lactic Acid Hemoglobin Chloride Glucose 125 H POC Glucose (mg/dL) 100 H Calcium Magnesium Total Bilirubin 1.4 H Total Protein Albumin HDL Cholesterol 37.00 L TSH 0.149 L Arterial Blood Potassium Arterial Blood Glucose Crossmatch See Detail 01/05/22 01/05/22 01/05/22 08:33 09:21 10:03 WBC RBC Neutrophils # Lymphocytes # Monocytes # ABG pH 7.34 L ABG pCO2 49 H 47 H 50 H ABG pO2 134 H 118 H 257 H ABG HCO3 28 H 27 H 27 H ABG Total CO2 29 H 29 H 28 H ABG O2 Saturation 98.6 H 98.3 H 99.5 H ABG Hematocrit ABG Potassium ABG Ionized Calcium 4.4 L ABG Glucose 110 H 106 H ABG Lactic Acid Hemoglobin 12.9 L 10.9 L Chloride Glucose POC Glucose (mg/dL) Calcium Magnesium Total Bilirubin Total Protein Albumin HDL Cholesterol TSH Arterial Blood Potassium Arterial Blood Glucose 110 H 106 H Crossmatch 01/05/22 01/05/22 01/05/22 10:31 11:00 12:08 WBC RBC Neutrophils # Lymphocytes # Monocytes # ABG pH 7.34 L 7.31 L ABG pCO2 49 H 51 H ABG pO2 368 H 311 H 185 H ABG HCO3 27 H 26 H ABG Total CO2 28 H 28 H 26 H ABG O2 Saturation 99.6 H 99.5 H 99.1 H ABG Hematocrit 33 L ABG Potassium 4.6 H ABG Ionized Calcium 4.4 L 4.4 L ABG Glucose 121 H 125 H 110 H ABG Lactic Acid 1.7 H Hemoglobin 10.9 L 11.4 L Chloride Glucose POC Glucose (mg/dL) Calcium Magnesium Total Bilirubin Total Protein Albumin HDL Cholesterol TSH Arterial Blood Potassium 4.6 H Arterial Blood Glucose 121 H 125 H 110 H Crossmatch 01/05/22 01/05/22 01/05/22 12:52 12:52 12:53 WBC 17.6 H RBC 4.07 L Neutrophils # 15.4 H Lymphocytes # Monocytes # ABG pH ABG pCO2 ABG pO2 ABG HCO3 ABG Total CO2 ABG O2 Saturation ABG Hematocrit ABG Potassium ABG Ionized Calcium ABG Glucose ABG Lactic Acid Hemoglobin Chloride 108 H Glucose 108 H POC Glucose (mg/dL) 110 H Calcium 8.1 L Magnesium 3.0 H Total Bilirubin Total Protein 5.5 L Albumin 3.0 L HDL Cholesterol TSH Arterial Blood Potassium Arterial Blood Glucose Crossmatch 01/05/22 01/05/22 01/05/22 13:10 14:13 15:05 WBC RBC Neutrophils # Lymphocytes # Monocytes # ABG pH 7.26 L ABG pCO2 59 H ABG pO2 239 H ABG HCO3 27 H ABG Total CO2 28 H ABG O2 Saturation 98.8 H ABG Hematocrit ABG Potassium ABG Ionized Calcium ABG Glucose ABG Lactic Acid Hemoglobin Chloride Glucose POC Glucose (mg/dL) 110 H 132 H Calcium Magnesium Total Bilirubin Total Protein Albumin HDL Cholesterol TSH Arterial Blood Potassium Arterial Blood Glucose Crossmatch 01/05/22 01/05/22 01/05/22 15:18 15:43 16:14 WBC 16.7 H RBC 4.24 L Neutrophils # 14.2 H Lymphocytes # 0.9 L Monocytes # 1.3 H ABG pH 7.33 L ABG pCO2 ABG pO2 171 H ABG HCO3 ABG Total CO2 25 H ABG O2 Saturation 98.5 H ABG Hematocrit ABG Potassium ABG Ionized Calcium ABG Glucose ABG Lactic Acid Hemoglobin Chloride Glucose POC Glucose (mg/dL) 132 H Calcium Magnesium Total Bilirubin Total Protein Albumin HDL Cholesterol TSH Arterial Blood Potassium Arterial Blood Glucose Crossmatch - Diagnostic Findings Chest x-ray: image reviewed (As noted in HPI.) Assessment and Plan Assessment: Impression: Status post mitral valve repair, patient is on mechanical ventilation. History of benign essential hypertension. History of mitral regurgitation. History of ventricular tachycardia. 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 History of cellulitis. Recommendation: Continue ventilatory support Ventilator settings were adjusted. Possible extubation was in the next couple of hours. We'll continue to follow. Continue GI and DVT prophylaxis. Resume cardiac meds. Left radial arterial line was established since line was lost while the patient was transferred to the ICU We'll continue to follow while in the ICU Time with Patient: Greater than 30
--- NOTE | 2022-01-05 16:52 | OP ---
OPERATIVE REPORT OPERATIVE REPORT: Placement of left radial arterial line. PREOPERATIVE DIAGNOSIS: Status post CABG, hypotension. POSTOPERATIVE DIAGNOSIS: Status post CABG, hypotension. ANESTHESIA USED: None deployed. PROCEDURE DESCRIPTION: The patient was placed in supine position. The left wrist was prepared in a sterile fashion and drapes were applied. The left radial artery was palpated, cannulated, and a guidewire was placed. A Cook's catheter was inserted over the guidewire, and the wire was removed. Good blood flow and good waveform were noted. No complications. Line was secured with 3.0 silk sutures. MMODL / IJN: [id number] /
[2022-01-05 17:08] LABS: Glucose,Whole Blood 140 mg/dL (75-99)
[2022-01-05] MEDS: KETOROLAC 30 MG/ML 1 ML VIAL IVP SCH (17:44)
[2022-01-05] MEDS: HEPARIN SODIUM,PORCINE/PF 5,000 UNIT/0.5 ML SYRINGE SQ SCH ×2 (17:44→23:49)
--- NOTE | 2022-01-05 18:01 | CONS ---
CONSULTATION This is a 61-year-old white male with history of severe mitral valve regurgitation who underwent complex mitral valve repair, resection of his chordae was on mechanical ventilation. Currently he is only on 4 L, saturating 94%. Chest x-ray is normal. Patient appears to be stable. For past medical history, see old chart. For past surgical history, see old chart. Both were reviewed. Home medicines reviewed. Allergies reviewed. Temperature 97.8, blood pressure low 100s to 70s systolic over 50s to 60s, pulse 60 to 70, O2 in the high 90s. He has an ET tube, orogastric tube. Cardiac S1, S2. Abdomen is soft. Extremities no edema. Neurologic cranial nerves intact. Psych fair mood and affect. Musculoskeletal normal. White count 16.7, hemoglobin 13.8, glucose 120s, total bilirubin 1.4, HDL 37, TSH 0.14. ASSESSMENT: 1. Status post mitral valve repair, on 4 L oxygen. Wean oxygen as tolerated. 2. Hypertension. 3. History of ventricular tachycardia. 4. Mitral regurgitation. 5. 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 6. History of cellulitis. Continue home medications. Standard post valve repair; appears to be stable at this point. MMODL / IJN: [id number] /
[2022-01-05 18:06] LABS: Glucose,Whole Blood 139 mg/dL (75-99)
[2022-01-05 18:24] LABS: Basophils % (A) 0 %; Eosinophils % (A) 0 %; HCT 39.5 % (39.0-53.0); HGB 13.4 gm/dL (13.0-17.5); Lymphocytes # (A) 0.5 k/uL (1.0-4.8); Lymphocytes % (A) 3 %; MCH 33.2 pg (25.0-35.0); MCV 97.7 fL (80.0-100.0); Mean Platelet Volume 8.2; Monocytes % (A) 6 %; Neutrophils # (A) 15.7 k/uL (1.3-7.7); Neutrophils % (A) 91 %; Platelet Count 173 k/uL (150-450); RBC 4.04 m/uL (4.30-5.90); RDW 12.8 % (11.5-15.5); WBC 17.3 k/uL (3.8-10.6)
[2022-01-05 19:07] LABS: Glucose,Whole Blood 139 mg/dL (75-99)
[2022-01-05 20:24] LABS: Glucose,Whole Blood 152 mg/dL (75-99)
[2022-01-05] MEDS: AMIODARONE 450 MG in DEXTROSE 5% IN WATER 250 ML IV SCH ×2 (20:35)
[2022-01-05 21:01] LABS: Glucose,Whole Blood 134 mg/dL (75-99)
[2022-01-05] MEDS: ASCORBIC ACID 500 MG TAB PO SCH (21:28)
[2022-01-05] MEDS: MUPIROCIN 2% OINT 22 GM TUBE NASAL SCH (21:29)
[2022-01-05 22:08] LABS: Glucose,Whole Blood 130 mg/dL (75-99)
[2022-01-05] MEDS: HYDROcodone/APAP 5-325MG 1 EACH TAB PO PRN (22:52)
[2022-01-05 23:11] LABS: Glucose,Whole Blood 130 mg/dL (75-99)
[2022-01-06] MEDS: KETOROLAC 30 MG/ML 1 ML VIAL IVP SCH ×4 (00:34→18:23)
[2022-01-06 01:05] LABS: Glucose,Whole Blood 129 mg/dL (75-99)
[2022-01-06 02:04] LABS: Glucose,Whole Blood 121 mg/dL (75-99)
[2022-01-06 03:19] LABS: Glucose,Whole Blood 120 mg/dL (75-99)
[2022-01-06] MEDS: HYDROcodone/APAP 5-325MG 1 EACH TAB PO PRN ×5 (03:20→19:25)
[2022-01-06] MEDS: ALBUMIN HUMAN 5% 250 ML in EMPTY BAG 1 BAG IVPB PRN ×3 (05:33→19:01)
[2022-01-06 05:42] LABS: Glucose,Whole Blood 131 mg/dL (75-99)
[2022-01-06 05:52] LABS: Basophils % (A) 0 %; Eosinophils % (A) 0 %; HGB 13.4 gm/dL (13.0-17.5); Lymphocytes # (A) 0.9 k/uL (1.0-4.8); Lymphocytes % (A) 5 %; MCH 32.8 pg (25.0-35.0); MCHC 33.5 g/dL (31.0-37.0); Mean Platelet Volume 8.1; Monocytes # (A) 1.6 k/uL (0-1.0); Monocytes % (A) 9 %; Neutrophils # (A) 15.4 k/uL (1.3-7.7); Neutrophils % (A) 85 %; Platelet Count 191 k/uL (150-450); RBC 4.08 m/uL (4.30-5.90); RDW 13.4 % (11.5-15.5); WBC 18.1 k/uL (3.8-10.6)
[2022-01-06 06:03] LABS: Ionized Calcium 4.8 mg/dL (4.5-5.3)
[2022-01-06 06:22] LABS: ALT 17 U/L (4-49); AST 41 U/L (17-59); African American GFR (CKD) >90 (>60 ml/min/1.73 sqM); Albumin 3.5 g/dL (3.5-5.0); Alkaline Phosphatase 41 U/L (38-126); Anion Gap 5 mmol/L; Blood Urea Nitrogen 17 mg/dL (9-20); Calcium 8.5 mg/dL (8.4-10.2); Carbon Dioxide 21 mmol/L (22-30); Chloride 107 mmol/L (98-107); Glucose 127 mg/dL (74-99); Magnesium 2.5 mg/dL (1.6-2.3); Non-African American GFR(CKD) 88 (>60 ml/min/1.73 sqM); Potassium 4.4 mmol/L (3.5-5.1); Sodium 133 mmol/L (137-145); Total Bilirubin 1.5 mg/dL (0.2-1.3); Total Protein 5.9 g/dL (6.3-8.2)
[2022-01-06 07:25] LABS: Glucose,Whole Blood 139 mg/dL (75-99)
--- NOTE | 2022-01-06 08:17 | XR ---
EXAMINATION TYPE: XR chest 1V portable DATE OF EXAM: 01/06/2022 COMPARISON: Chest x-ray 01/05/2022 HISTORY: Postop cardiac surgery, extubated, chest tube TECHNIQUE: Single frontal view of the chest is obtained. FINDINGS: There is been interval removal of endotracheal tube and NG tube. Right jugular central tawnya ous catheter is present with the distal tip over the pulmonary artery. Mediastinal drain, right-sided chest tube are again seen, left-sided chest tube again noted. Patient is post median sternotomy and cardiac valve replacement. No evident pneumothorax or sizable effusion. Patchy basilar density persis ts, perihilar vascular indistinctness is noted. Cardiac mediastinal silhouette is stable. Lung volume s are low. IMPRESSION: There may be a component of volume overload, interstitial edema. Interval extubation. Pr obable subsegmental basilar atelectatic change.
[2022-01-06] MEDS: IPRATROPIUM-ALBUTEROL 3 ML NEB INHALATION SCH ×4 (08:22→20:08)
--- NOTE | 2022-01-06 08:39 | P.PN ---
Subjective Progress Note Date: 01/06/22 Principal diagnosis: Mitral regurgitation. Previous medical history of hypertension, episode of ventricular tachycardia after having red man syndrome from vancomycin, never smoker, remote history of pneumonia. 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 He was successfully extubated yesterday at 4 PM. States pain is controlled on current medication regimen, denies shortness of breath although he does complain of difficulty taking a deep breath due to pain. Was ventricular paced at 65 beats minute with underlying rhythm sinus bradycardia in the mid 50s, hemodynamically stable. Remains on IV amiodarone for A. fib prophylaxis. He had a relatively uneventful night. Mediastinal/left pleural chest tubes, right internal jugular [place] /Cordis, left radial arterial line all remaining present. No other new concerns. Objective - Vital Signs Vital signs: Vital Signs Temp 97.7 F 01/05/22 17:00 Pulse 55 L 01/06/22 07:30 Resp 22 01/06/22 07:30 BP 102/68 01/06/22 07:30 Pulse Ox 94 L 01/06/22 07:30 Intake & Output 01/05/22 01/06/22 01/06/22 18:59 06:59 18:59 Intake Total 798.221 9854.813 69.184 Output Total 2555 741 20 Balance -5244.028 0701.813 49.184 Weight 136.7 kg Intake: IV 740 1298 59 ACETAMINOPHEN IV (For NPO 100 100 ) 1,000 mg In Empty Bag 1 bag @ 400 mls/hr IVPB Q6H MERVAT Rx#:[id number] Albumin Human 5% 250 ml 250 In Empty Bag 1 bag @ 250 mls/hr IVPB Q1HR PRN Rx#: [id number] CO/CI 120 240 Lactated Ringers 1,000 ml 300 600 50 @ 20 mls/hr IV .Q24H MERVAT Rx#:[id number] Pressure 18 108 9 ceFAZolin 3 gm In Sodium 100 Chloride 0.9% 100 ml @ 100 mls/hr IVPB Q8HR MERVAT Rx#:[id number] Intake, IV Titration 78.281 38.813 10.184 Amount Dexmedetomidine/0.9% NaCl 62.662 32.904 (Pmx) 400 mcg In Empty Bag 1 bag @ Titrate IV . Q0M MERVAT Rx#:[id number] Insulin Regular 100 unit 2.104 5.909 10.184 In Sodium Chloride 0.9% 100 ml @ Per Protocol IV .Q0M MERVAT Rx#:[id number] propofoL 1,000 mg In 13.515 Empty Bag 1 bag @ Titrate IV .Q0M MERVAT Rx#: [id number] Oral 1400 Output: Chest Tube Drainage 280 346 0 Left Pleural/Mediastinal 160 196 0 Mediastinal 120 150 0 Urine 775 395 20 Estimated Blood Loss 1500 Other: Voiding Method Indwelling Catheter Indwelling Catheter ABP, PAP, CO, CI - Last Documented Arterial Blood Pressure 90/53 Pulmonary Artery Pressure 31/12 Cardiac Output 5.1 Cardiac Index 2.6 - Exam CONSTITUTIONAL: Appears comfortable, cooperative, no acute distress RESPIRATORY: Lungs sounds diminished bilaterally. Respirations even, nonlabored. Currently on 5 L nasal cannula with oxygen saturation 94%. Able to achieve 1250 mL on incentive spirometry. Strong cough. CARDIOVASCULAR: S1, S2 present. Slow but regular rate and rhythm, sinus bradycardia on telemetry. Sternum stable. Palpable peripheral pulses bilaterally. No edema present. No calf pain or tenderness noted. Heart hugger in place with patient demonstrating appropriate use. Antiembolism stockings, SCDs present. GASTROINTESTINAL: Abdomen soft, nontender, nondistended. Hypoactive bowel krystal nds present 4 quadrants. Tolerating diet. Negative flatus GENITOURINARY: Abreu present draining clear, yellow urine. Output overnight 20-45 mL per hour INTEGUMENTARY: Skin is warm and dry with evidence of good perfusion. Anterior chest incision well approximated and covered with dry intact dressing. NEUROLOGIC: Cranial nerves II through XII intact MUSKULOSKELETAL: Able to move all extremities, strength equal bilaterally, gait normal PSYCHIATRIC: Alert and oriented to person place and time, appropriate affect, intact judgment and insight INVASIVE LINES AND TUBES: Mediastinal/left pleural chest tubes present and connected to wall suction, no air leaks present. Mediastinal tube with 65 mL serosanguineous drainage overnight, 300 mL since surgery. Left pleural chest tube with 170 mL serosanguineous drainage overnight, 350 mL since surgery. A/V epicardial pacemaker wires present, connected to generator, VVI mode with backup rate 50 bpm. Right internal jugular [place]/Cordis, left radial arterial line present. Last CO/CI 5.1/2.6, PA 34/16, CVP 7. - Allied health notes Allied health notes reviewed: nursing - Labs CBC & Chem 7: 01/06/22 05:40 01/06/22 05:40 Labs: Abnormal Lab Results - Last 24 Hours (Table) 12/24/21 01/05/22 01/05/22 Range/Units 11:01 08:33 09:21 WBC (3.8-10.6) k/uL RBC (4.30-5.90) m/uL Neutrophils # (1.3-7.7) k/uL Lymphocytes # (1.0-4.8) k/uL Monocytes # (0-1.0) k/uL ABG pH (7.35-7.45) ABG pCO2 49 H 47 H (35-45) mmHg ABG pO2 134 H 118 H (83-108) mmHg ABG HCO3 28 H 27 H (21-25) mmol/L ABG Total CO2 29 H 29 H (19-24) mmol/L ABG O2 Saturation 98.6 H 98.3 H (94-97) % ABG Hematocrit (34.0-46.0) % ABG Potassium (3.4-4.5) mmol/L ABG Ionized Calcium (4.5-5.3) mg/dL ABG Glucose 110 H (75-99) mg/dL ABG Lactic Acid (0.5-1.6) mmol/L Hemoglobin 12.9 L (13.0-17.5) gm/dL Sodium (137-145) mmol/L Chloride (98-107) mmol/L Carbon Dioxide (22-30) mmol/L Glucose (74-99) mg/dL POC Glucose (mg/dL) (75-99) mg/dL Calcium (8.4-10.2) mg/dL Magnesium (1.6-2.3) mg/dL Total Bilirubin (0.2-1.3) mg/dL Total Protein (6.3-8.2) g/dL Albumin (3.5-5.0) g/dL Arterial Blood Potassium (3.4-4.5) mmol/L Arterial Blood Glucose 110 H (75-99) mg/dL Crossmatch See Detail 01/05/22 01/05/22 01/05/22 Range/Units 10:03 10:31 11:00 WBC (3.8-10.6) k/uL RBC (4.30-5.90) m/uL Neutrophils # (1.3-7.7) k/uL Lymphocytes # (1.0-4.8) k/uL Monocytes # (0-1.0) k/uL ABG pH 7.34 L 7.34 L 7.31 L (7.35-7.45) ABG pCO2 50 H 49 H 51 H (35-45) mmHg ABG pO2 257 H 368 H 311 H (83-108) mmHg ABG HCO3 27 H 27 H 26 H (21-25) mmol/L ABG Total CO2 28 H 28 H 28 H (19-24) mmol/L ABG O2 Saturation 99.5 H 99.6 H 99.5 H (94-97) % ABG Hematocrit 33 L (34.0-46.0) % ABG Potassium 4.6 H (3.4-4.5) mmol/L ABG Ionized Calcium 4.4 L 4.4 L 4.4 L (4.5-5.3) mg/dL ABG Glucose 106 H 121 H 125 H (75-99) mg/dL ABG Lactic Acid (0.5-1.6) mmol/L Hemoglobin 10.9 L 10.9 L 11.4 L (13.0-17.5) gm/dL Sodium (137-145) mmol/L Chloride (98-107) mmol/L Carbon Dioxide (22-30) mmol/L Glucose (74-99) mg/dL POC Glucose (mg/dL) (75-99) mg/dL Calcium (8.4-10.2) mg/dL Magnesium (1.6-2.3) mg/dL Total Bilirubin (0.2-1.3) mg/dL Total Protein (6.3-8.2) g/dL Albumin (3.5-5.0) g/dL Arterial Blood Potassium 4.6 H (3.4-4.5) mmol/L Arterial Blood Glucose 106 H 121 H 125 H (75-99) mg/dL Crossmatch 01/05/22 01/05/22 01/05/22 Range/Units 12:08 12:52 12:52 WBC 17.6 H (3.8-10.6) k/uL RBC 4.07 L (4.30-5.90) m/uL Neutrophils # 15.4 H (1.3-7.7) k/uL Lymphocytes # (1.0-4.8) k/uL Monocytes # (0-1.0) k/uL ABG pH (7.35-7.45) ABG pCO2 (35-45) mmHg ABG pO2 185 H (83-108) mmHg ABG HCO3 (21-25) mmol/L ABG Total CO2 26 H (19-24) mmol/L ABG O2 Saturation 99.1 H (94-97) % ABG Hematocrit (34.0-46.0) % ABG Potassium (3.4-4.5) mmol/L ABG Ionized Calcium (4.5-5.3) mg/dL ABG Glucose 110 H (75-99) mg/dL ABG Lactic Acid 1.7 H (0.5-1.6) mmol/L Hemoglobin (13.0-17.5) gm/dL Sodium (137-145) mmol/L Chloride 108 H (98-107) mmol/L Carbon Dioxide (22-30) mmol/L Glucose 108 H (74-99) mg/dL POC Glucose (mg/dL) (75-99) mg/dL Calcium 8.1 L (8.4-10.2) mg/dL Magnesium 3.0 H (1.6-2.3) mg/dL Total Bilirubin (0.2-1.3) mg/dL Total Protein 5.5 L (6.3-8.2) g/dL Albumin 3.0 L (3.5-5.0) g/dL Arterial Blood Potassium (3.4-4.5) mmol/L Arterial Blood Glucose 110 H (75-99) mg/dL Crossmatch 01/05/22 01/05/22 01/05/22 Range/Units 12:53 13:10 14:13 WBC (3.8-10.6) k/uL RBC (4.30-5.90) m/uL Neutrophils # (1.3-7.7) k/uL Lymphocytes # (1.0-4.8) k/uL Monocytes # (0-1.0) k/uL ABG pH 7.26 L (7.35-7.45) ABG pCO2 59 H (35-45) mmHg ABG pO2 239 H (83-108) mmHg ABG HCO3 27 H (21-25) mmol/L ABG Total CO2 28 H (19-24) mmol/L ABG O2 Saturation 98.8 H (94-97) % ABG Hematocrit (34.0-46.0) % ABG Potassium (3.4-4.5) mmol/L ABG Ionized Calcium (4.5-5.3) mg/dL ABG Glucose (75-99) mg/dL ABG Lactic Acid (0.5-1.6) mmol/L Hemoglobin (13.0-17.5) gm/dL Sodium (137-145) mmol/L Chloride (98-107) mmol/L Carbon Dioxide (22-30) mmol/L Glucose (74-99) mg/dL POC Glucose (mg/dL) 110 H 110 H (75-99) mg/dL Calcium (8.4-10.2) mg/dL Magnesium (1.6-2.3) mg/dL Total Bilirubin (0.2-1.3) mg/dL Total Protein (6.3-8.2) g/dL Albumin (3.5-5.0) g/dL Arterial Blood Potassium (3.4-4.5) mmol/L Arterial Blood Glucose (75-99) mg/dL Crossmatch 01/05/22 01/05/22 01/05/22 Range/Units 15:05 15:18 15:43 WBC 16.7 H (3.8-10.6) k/uL RBC 4.24 L (4.30-5.90) m/uL Neutrophils # 14.2 H (1.3-7.7) k/uL Lymphocytes # 0.9 L (1.0-4.8) k/uL Monocytes # 1.3 H (0-1.0) k/uL ABG pH 7.33 L (7.35-7.45) ABG pCO2 (35-45) mmHg ABG pO2 171 H (83-108) mmHg ABG HCO3 (21-25) mmol/L ABG Total CO2 25 H (19-24) mmol/L ABG O2 Saturation 98.5 H (94-97) % ABG Hematocrit (34.0-46.0) % ABG Potassium (3.4-4.5) mmol/L ABG Ionized Calcium (4.5-5.3) mg/dL ABG Glucose (75-99) mg/dL ABG Lactic Acid (0.5-1.6) mmol/L Hemoglobin (13.0-17.5) gm/dL Sodium (137-145) mmol/L Chloride (98-107) mmol/L Carbon Dioxide (22-30) mmol/L Glucose (74-99) mg/dL POC Glucose (mg/dL) 132 H (75-99) mg/dL Calcium (8.4-10.2) mg/dL Magnesium (1.6-2.3) mg/dL Total Bilirubin (0.2-1.3) mg/dL Total Protein (6.3-8.2) g/dL Albumin (3.5-5.0) g/dL Arterial Blood Potassium (3.4-4.5) mmol/L Arterial Blood Glucose (75-99) mg/dL Crossmatch 01/05/22 01/05/22 01/05/22 Range/Units 16:14 17:07 18:05 WBC (3.8-10.6) k/uL RBC (4.30-5.90) m/uL Neutrophils # (1.3-7.7) k/uL Lymphocytes # (1.0-4.8) k/uL Monocytes # (0-1.0) k/uL ABG pH (7.35-7.45) ABG pCO2 (35-45) mmHg ABG pO2 (83-108) mmHg ABG HCO3 (21-25) mmol/L ABG Total CO2 (19-24) mmol/L ABG O2 Saturation (94-97) % ABG Hematocrit (34.0-46.0) % ABG Potassium (3.4-4.5) mmol/L ABG Ionized Calcium (4.5-5.3) mg/dL ABG Glucose (75-99) mg/dL ABG Lactic Acid (0.5-1.6) mmol/L Hemoglobin (13.0-17.5) gm/dL Sodium (137-145) mmol/L Chloride (98-107) mmol/L Carbon Dioxide (22-30) mmol/L Glucose (74-99) mg/dL POC Glucose (mg/dL) 132 H 140 H 139 H (75-99) mg/dL Calcium (8.4-10.2) mg/dL Magnesium (1.6-2.3) mg/dL Total Bilirubin (0.2-1.3) mg/dL Total Protein (6.3-8.2) g/dL Albumin (3.5-5.0) g/dL Arterial Blood Potassium (3.4-4.5) mmol/L Arterial Blood Glucose (75-99) mg/dL Crossmatch 01/05/22 01/05/22 01/05/22 Range/Units 18:12 19:06 20:22 WBC 17.3 H (3.8-10.6) k/uL RBC 4.04 L (4.30-5.90) m/uL Neutrophils # 15.7 H (1.3-7.7) k/uL Lymphocytes # 0.5 L (1.0-4.8) k/uL Monocytes # (0-1.0) k/uL ABG pH (7.35-7.45) ABG pCO2 (35-45) mmHg ABG pO2 (83-108) mmHg ABG HCO3 (21-25) mmol/L ABG Total CO2 (19-24) mmol/L ABG O2 Saturation (94-97) % ABG Hematocrit (34.0-46.0) % ABG Potassium (3.4-4.5) mmol/L ABG Ionized Calcium (4.5-5.3) mg/dL ABG Glucose (75-99) mg/dL ABG Lactic Acid (0.5-1.6) mmol/L Hemoglobin (13.0-17.5) gm/dL Sodium (137-145) mmol/L Chloride (98-107) mmol/L Carbon Dioxide (22-30) mmol/L Glucose (74-99) mg/dL POC Glucose (mg/dL) 139 H 152 H (75-99) mg/dL Calcium (8.4-10.2) mg/dL Magnesium (1.6-2.3) mg/dL Total Bilirubin (0.2-1.3) mg/dL Total Protein (6.3-8.2) g/dL Albumin (3.5-5.0) g/dL Arterial Blood Potassium (3.4-4.5) mmol/L Arterial Blood Glucose (75-99) mg/dL Crossmatch 01/05/22 01/05/22 01/05/22 Range/Units 20:59 22:07 23:10 WBC (3.8-10.6) k/uL RBC (4.30-5.90) m/uL Neutrophils # (1.3-7.7) k/uL Lymphocytes # (1.0-4.8) k/uL Monocytes # (0-1.0) k/uL ABG pH (7.35-7.45) ABG pCO2 (35-45) mmHg ABG pO2 (83-108) mmHg ABG HCO3 (21-25) mmol/L ABG Total CO2 (19-24) mmol/L ABG O2 Saturation (94-97) % ABG Hematocrit (34.0-46.0) % ABG Potassium (3.4-4.5) mmol/L ABG Ionized Calcium (4.5-5.3) mg/dL ABG Glucose (75-99) mg/dL ABG Lactic Acid (0.5-1.6) mmol/L Hemoglobin (13.0-17.5) gm/dL Sodium (137-145) mmol/L Chloride (98-107) mmol/L Carbon Dioxide (22-30) mmol/L Glucose (74-99) mg/dL POC Glucose (mg/dL) 134 H 130 H 130 H (75-99) mg/dL Calcium (8.4-10.2) mg/dL Magnesium (1.6-2.3) mg/dL Total Bilirubin (0.2-1.3) mg/dL Total Protein (6.3-8.2) g/dL Albumin (3.5-5.0) g/dL Arterial Blood Potassium (3.4-4.5) mmol/L Arterial Blood Glucose (75-99) mg/dL Crossmatch 01/06/22 01/06/22 01/06/22 Range/Units 01:03 02:03 03:17 WBC (3.8-10.6) k/uL RBC (4.30-5.90) m/uL Neutrophils # (1.3-7.7) k/uL Lymphocytes # (1.0-4.8) k/uL Monocytes # (0-1.0) k/uL ABG pH (7.35-7.45) ABG pCO2 (35-45) mmHg ABG pO2 (83-108) mmHg ABG HCO3 (21-25) mmol/L ABG Total CO2 (19-24) mmol/L ABG O2 Saturation (94-97) % ABG Hematocrit (34.0-46.0) % ABG Potassium (3.4-4.5) mmol/L ABG Ionized Calcium (4.5-5.3) mg/dL ABG Glucose (75-99) mg/dL ABG Lactic Acid (0.5-1.6) mmol/L Hemoglobin (13.0-17.5) gm/dL Sodium (137-145) mmol/L Chloride (98-107) mmol/L Carbon Dioxide (22-30) mmol/L Glucose (74-99) mg/dL POC Glucose (mg/dL) 129 H 121 H 120 H (75-99) mg/dL Calcium (8.4-10.2) mg/dL Magnesium (1.6-2.3) mg/dL Total Bilirubin (0.2-1.3) mg/dL Total Protein (6.3-8.2) g/dL Albumin (3.5-5.0) g/dL Arterial Blood Potassium (3.4-4.5) mmol/L Arterial Blood Glucose (75-99) mg/dL Crossmatch 01/06/22 01/06/22 01/06/22 Range/Units 05:40 05:40 05:41 WBC 18.1 H (3.8-10.6) k/uL RBC 4.08 L (4.30-5.90) m/uL Neutrophils # 15.4 H (1.3-7.7) k/uL Lymphocytes # 0.9 L (1.0-4.8) k/uL Monocytes # 1.6 H (0-1.0) k/uL ABG pH (7.35-7.45) ABG pCO2 (35-45) mmHg ABG pO2 (83-108) mmHg ABG HCO3 (21-25) mmol/L ABG Total CO2 (19-24) mmol/L ABG O2 Saturation (94-97) % ABG Hematocrit (34.0-46.0) % ABG Potassium (3.4-4.5) mmol/L ABG Ionized Calcium (4.5-5.3) mg/dL ABG Glucose (75-99) mg/dL ABG Lactic Acid (0.5-1.6) mmol/L Hemoglobin (13.0-17.5) gm/dL Sodium 133 L (137-145) mmol/L Chloride (98-107) mmol/L Carbon Dioxide 21 L (22-30) mmol/L Glucose 127 H (74-99) mg/dL POC Glucose (mg/dL) 131 H (75-99) mg/dL Calcium (8.4-10.2) mg/dL Magnesium 2.5 H (1.6-2.3) mg/dL Total Bilirubin 1.5 H (0.2-1.3) mg/dL Total Protein 5.9 L (6.3-8.2) g/dL Albumin (3.5-5.0) g/dL Arterial Blood Potassium (3.4-4.5) mmol/L Arterial Blood Glucose (75-99) mg/dL Crossmatch 01/06/22 Range/Units 07:24 WBC (3.8-10.6) k/uL RBC (4.30-5.90) m/uL Neutrophils # (1.3-7.7) k/uL Lymphocytes # (1.0-4.8) k/uL Monocytes # (0-1.0) k/uL ABG pH (7.35-7.45) ABG pCO2 (35-45) mmHg ABG pO2 (83-108) mmHg ABG HCO3 (21-25) mmol/L ABG Total CO2 (19-24) mmol/L ABG O2 Saturation (94-97) % ABG Hematocrit (34.0-46.0) % ABG Potassium (3.4-4.5) mmol/L ABG Ionized Calcium (4.5-5.3) mg/dL ABG Glucose (75-99) mg/dL ABG Lactic Acid (0.5-1.6) mmol/L Hemoglobin (13.0-17.5) gm/dL Sodium (137-145) mmol/L Chloride (98-107) mmol/L Carbon Dioxide (22-30) mmol/L Glucose (74-99) mg/dL POC Glucose (mg/dL) 139 H (75-99) mg/dL Calcium (8.4-10.2) mg/dL Magnesium (1.6-2.3) mg/dL Total Bilirubin (0.2-1.3) mg/dL Total Protein (6.3-8.2) g/dL Albumin (3.5-5.0) g/dL Arterial Blood Potassium (3.4-4.5) mmol/L Arterial Blood Glucose (75-99) mg/dL Crossmatch - Imaging and Cardiology Chest x-ray: report reviewed, image reviewed Assessment and Plan Assessment: 1. Mitral regurgitation, status post complex mitral valve repair 2. History of hypertension 3. 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 Never smoker, preoperative FEV1 83% of predicted 5. Remote history of pneumonia 6. Remains unvaccinated against Covid Plan: 1. Continue aspirin, statin, Plavix. Will hold beta tessa therapy for now 2. Continue amiodarone for A. fib prophylaxis, will transition to oral 3. Wean O2 as tolerated. Encourage incentive spirometry use. Bronchodilators per pulmonology 4. Increase activity, ambulate as tolerated. PT/OT/cardiac rehab consulted 5. Will monitor daily labs and x-rays. Electronic replacement per protocol. 6. GI/DVT prophylaxis 7. Pain control with current medication regimen 8. Insulin management per primary care service. Patient is not diabetic, preoperative hemoglobin A1c 5.7%, however patient does need tight blood sugar control to promote sternal union and prevent infection 9. Keep epicardial pacemaker wires connected to generator with VVI mode, backup rate 50 bpm 10. Discontinue [place]. Connect Cordis to continuous CVP monitoring 11. Continue chest tubes for another 24 hours 12. Continue Abreu catheter for another 24 hours for strict accurate intake and output. Daily weights 13. More recommendations to follow Time with Patient: Greater than 30
[2022-01-06 08:40] LABS: Glucose,Whole Blood 146 mg/dL (75-99)
[2022-01-06] MEDS ORDERED: MAGNESIUM HYDROXIDE 2,400 MG/10 ML CUP PO PRN (09:00)
[2022-01-06] MEDS ORDERED: PANTOPRAZOLE 40 MG/10 ML VIAL IVP SCH (09:00)
[2022-01-06] MEDS ORDERED: bisacodyL 10 MG SUPP RECTAL PRN (09:00)
[2022-01-06] MEDS ORDERED: METOPROLOL TARTRATE 12.5 MG TAB PO SCH (09:00)
[2022-01-06] MEDS: HEPARIN SODIUM,PORCINE/PF 5,000 UNIT/0.5 ML SYRINGE SQ SCH ×2 (09:20→15:26)
[2022-01-06] MEDS: ceFAZolin 3 GM in SODIUM CHLORIDE 0.9% 100 ML IVPB SCH (09:28)
[2022-01-06] MEDS: AMIODARONE 200 MG TAB PO SCH ×2 (09:30→21:52)
[2022-01-06] MEDS: ASCORBIC ACID 500 MG TAB PO SCH ×2 (09:34→21:51)
[2022-01-06] MEDS: ATORVASTATIN 40 MG TAB PO SCH (09:34)
[2022-01-06] MEDS: ASPIRIN 325 MG TAB PO SCH (09:34)
[2022-01-06] MEDS: MULTIVITAMINS, THERA 1 EACH TAB PO SCH (09:35)
[2022-01-06] MEDS: CLOPIDOGREL 75 MG TAB PO SCH (09:35)
[2022-01-06] MEDS: MUPIROCIN 2% OINT 22 GM TUBE NASAL SCH ×2 (09:36→21:52)
--- NOTE | 2022-01-06 10:01 | CONS ---
CONSULTATION This is a 61-year-old gentleman with a history of severe mitral regurgitation who underwent mitral valve repair yesterday by Dr. Dimitry Hannah. He was a patient of Dr. Donovan who underwent cardiac cath earlier in the month which revealed no significant obstructive CAD, right-dominant system with severe 4+ MR. He had a mitral valve repair by Dr. Hannah. He has been extubated. He is comfortable resting and not in any distress. Past medical history is remarkable for mitral valve regurgitation, hypertension. No obstructive CAD. Medications at home include losartan 50 mg daily, Lasix 40 mg daily, aspirin 81 mg daily, metoprolol tartrate 25 mg b.i.d. ALLERGIES: VANCOMYCIN. On examination, blood pressure is 102/60, pulse rate is 56 per minute, sinus, with back- up pacing. HEENT unremarkable. Fundus was not examined. Neck is supple. No JVD. Heart exam reveals S1, S2 heard normally. There is soft apical systolic murmur audible. Lungs reveal decent air entry. Abdomen is soft. Lower extremities reveal diminished pulses. Central nervous system: No focal deficits. IMPRESSION: 1. Status post mitral valve repair. 2. History of hypertension. RECOMMENDATIONS: I recommend that we continue incentive spirometry, pulmonary toilet and a small dose of beta tessa as needed. No new specific suggestions. Patient is progressing well. MMODL / IJN: [id number] /
[2022-01-06 10:24] LABS: Glucose,Whole Blood 122 mg/dL (75-99)
[2022-01-06 12:28] LABS: Glucose,Whole Blood 117 mg/dL (75-99)
[2022-01-06] MEDS: AMIODARONE 450 MG in DEXTROSE 5% IN WATER 250 ML IV SCH ×2 (12:51)
--- NOTE | 2022-01-06 13:02 | P.PN ---
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 Patient is now on assist control rate of 16, tidal volume is 500, FiO2 50% and PEEP of 10. ABG prior to this ABG showed a pO2 of 239, pCO2 of 59 pH of 7.26, hence the patient was placed on a rate of 16 from 12, and FiO2 cut down from 100% to 50%. Shortly after I saw the patient, CPAP ABG showed a pO2 of 171 pCO2 of 45 pH of 7.33, hence proceeded to extubating the patient, uneventfully. Chest x-ray showed mostly postoperative changes, no acute process was noted. Minimal bibasilar atelectasis is noted which is expected post surgery Reevaluated today on 01/06/2022, patient remains in the ICU, he was extubated a few hours after he arrived to the ICU yesterday, and his postoperative course has been relatively uneventful. Patient is sitting in a recliner, he is relatively asymptomatic, he is on 4 L nasal cannula, mediastinal/left pleural chest tubes in place, patient is hemodynamically stable, not requiring any pressors. Chest x-ray is showing possible interstitial edema and small bibasilar atelectasis Objective - Vital Signs Vital signs: Vital Signs Temp 98.9 F 01/06/22 12:00 Pulse 58 L 01/06/22 12:05 Resp 21 01/06/22 12:00 BP 106/72 01/06/22 12:00 Pulse Ox 94 L 01/06/22 12:00 Intake & Output 01/05/22 01/06/22 01/06/22 18:59 06:59 18:59 Intake Total 867.734 3725.813 1705.158 Output Total 2555 741 278 Balance -7145.249 7607.813 1427.158 Weight 136.7 kg Intake: IV 740 1298 708 ACETAMINOPHEN IV (For NPO 100 100 ) 1,000 mg In Empty Bag 1 bag @ 400 mls/hr IVPB Q6H [facility] Rx#:[id number] Albumin Human 5% 250 ml 250 250 In Empty Bag 1 bag @ 250 mls/hr IVPB Q1HR PRN Rx#: [id number] CO/CI 120 240 30 Lactated Ringers 1,000 ml 300 600 280 @ 20 mls/hr IV .Q24H [facility] Rx#:[id number] Pressure 18 108 48 ceFAZolin 3 gm In Sodium 100 100 Chloride 0.9% 100 ml @ 100 mls/hr IVPB Q8HR [facility] Rx#:[id number] Intake, IV Titration 78.281 38.813 247.158 Amount Amiodarone 450 mg In 231.949 Dextrose 5% in Water 250 ml @ 0.5 MG/MIN 16.667 mls/hr IV .Q15H [facility] Rx#: [id number] Dexmedetomidine/0.9% NaCl 62.662 32.904 (Pmx) 400 mcg In Empty Bag 1 bag @ Titrate IV . Q0M [facility] Rx#:[id number] Insulin Regular 100 unit 2.104 5.909 15.209 In Sodium Chloride 0.9% 100 ml @ Per Protocol IV .Q0M [facility] Rx#:[id number] propofoL 1,000 mg In 13.515 Empty Bag 1 bag @ Titrate IV .Q0M [facility] Rx#: [id number] Oral 1400 750 Output: Chest Tube Drainage 280 346 140 Left Pleural/Mediastinal 160 196 60 Mediastinal 120 150 80 Urine 775 395 138 Estimated Blood Loss 1500 Other: Voiding Method Indwelling Catheter Indwelling Catheter ABP, PAP, CO, CI - Last Documented Arterial Blood Pressure 41/35 Pulmonary Artery Pressure 28/11 Cardiac Output 5 Cardiac Index 2.5 - Exam Physical Exam: Revealed a 61-year-old white male on 4 L nasal cannula, in no distress. Head: Atraumatic, normocephalic. HEENT:[Neck is supple.] [No neck masses.] [No thyromegaly.] [No JVD.] Chest: [Symmetrical chest expansion, diminished breath sounds at the bases no crackles or rhonchi or wheezes Cardiac Exam: [Normal S1 and S2, no S3 gallop, no murmur.] Abdomen: [Soft, nontender, no megaly, no rebound, no guarding, normal bowel sounds.] Extremities: [No clubbing, no edema, no cyanosis.] Neurological Exam: [No focal neurologic deficit.] Alert oriented 3. Psychiatric: Normal mood, affect and normal mental status examination. Skin: No rashes - Labs CBC & Chem 7: 01/06/22 05:40 01/06/22 05:40 Labs: Abnormal Lab Results - Last 24 Hours (Table) 12/24/21 01/05/22 01/05/22 Range/Units 11:01 12:52 12:52 WBC 17.6 H (3.8-10.6) k/uL RBC 4.07 L (4.30-5.90) m/uL Neutrophils # 15.4 H (1.3-7.7) k/uL Lymphocytes # (1.0-4.8) k/uL Monocytes # (0-1.0) k/uL ABG pH (7.35-7.45) ABG pCO2 (35-45) mmHg ABG pO2 (83-108) mmHg ABG HCO3 (21-25) mmol/L ABG Total CO2 (19-24) mmol/L ABG O2 Saturation (94-97) % Sodium (137-145) mmol/L Chloride 108 H (98-107) mmol/L Carbon Dioxide (22-30) mmol/L Glucose 108 H (74-99) mg/dL POC Glucose (mg/dL) (75-99) mg/dL Calcium 8.1 L (8.4-10.2) mg/dL Magnesium 3.0 H (1.6-2.3) mg/dL Total Bilirubin (0.2-1.3) mg/dL Total Protein 5.5 L (6.3-8.2) g/dL Albumin 3.0 L (3.5-5.0) g/dL Crossmatch See Detail 01/05/22 01/05/22 01/05/22 Range/Units 12:53 13:10 14:13 WBC (3.8-10.6) k/uL RBC (4.30-5.90) m/uL Neutrophils # (1.3-7.7) k/uL Lymphocytes # (1.0-4.8) k/uL Monocytes # (0-1.0) k/uL ABG pH 7.26 L (7.35-7.45) ABG pCO2 59 H (35-45) mmHg ABG pO2 239 H (83-108) mmHg ABG HCO3 27 H (21-25) mmol/L ABG Total CO2 28 H (19-24) mmol/L ABG O2 Saturation 98.8 H (94-97) % Sodium (137-145) mmol/L Chloride (98-107) mmol/L Carbon Dioxide (22-30) mmol/L Glucose (74-99) mg/dL POC Glucose (mg/dL) 110 H 110 H (75-99) mg/dL Calcium (8.4-10.2) mg/dL Magnesium (1.6-2.3) mg/dL Total Bilirubin (0.2-1.3) mg/dL Total Protein (6.3-8.2) g/dL Albumin (3.5-5.0) g/dL Crossmatch 01/05/22 01/05/22 01/05/22 Range/Units 15:05 15:18 15:43 WBC 16.7 H (3.8-10.6) k/uL RBC 4.24 L (4.30-5.90) m/uL Neutrophils # 14.2 H (1.3-7.7) k/uL Lymphocytes # 0.9 L (1.0-4.8) k/uL Monocytes # 1.3 H (0-1.0) k/uL ABG pH 7.33 L (7.35-7.45) ABG pCO2 (35-45) mmHg ABG pO2 171 H (83-108) mmHg ABG HCO3 (21-25) mmol/L ABG Total CO2 25 H (19-24) mmol/L ABG O2 Saturation 98.5 H (94-97) % Sodium (137-145) mmol/L Chloride (98-107) mmol/L Carbon Dioxide (22-30) mmol/L Glucose (74-99) mg/dL POC Glucose (mg/dL) 132 H (75-99) mg/dL Calcium (8.4-10.2) mg/dL Magnesium (1.6-2.3) mg/dL Total Bilirubin (0.2-1.3) mg/dL Total Protein (6.3-8.2) g/dL Albumin (3.5-5.0) g/dL Crossmatch 01/05/22 01/05/22 01/05/22 Range/Units 16:14 17:07 18:05 WBC (3.8-10.6) k/uL RBC (4.30-5.90) m/uL Neutrophils # (1.3-7.7) k/uL Lymphocytes # (1.0-4.8) k/uL Monocytes # (0-1.0) k/uL ABG pH (7.35-7.45) ABG pCO2 (35-45) mmHg ABG pO2 (83-108) mmHg ABG HCO3 (21-25) mmol/L ABG Total CO2 (19-24) mmol/L ABG O2 Saturation (94-97) % Sodium (137-145) mmol/L Chloride (98-107) mmol/L Carbon Dioxide (22-30) mmol/L Glucose (74-99) mg/dL POC Glucose (mg/dL) 132 H 140 H 139 H (75-99) mg/dL Calcium (8.4-10.2) mg/dL Magnesium (1.6-2.3) mg/dL Total Bilirubin (0.2-1.3) mg/dL Total Protein (6.3-8.2) g/dL Albumin (3.5-5.0) g/dL Crossmatch 01/05/22 01/05/22 01/05/22 Range/Units 18:12 19:06 20:22 WBC 17.3 H (3.8-10.6) k/uL RBC 4.04 L (4.30-5.90) m/uL Neutrophils # 15.7 H (1.3-7.7) k/uL Lymphocytes # 0.5 L (1.0-4.8) k/uL Monocytes # (0-1.0) k/uL ABG pH (7.35-7.45) ABG pCO2 (35-45) mmHg ABG pO2 (83-108) mmHg ABG HCO3 (21-25) mmol/L ABG Total CO2 (19-24) mmol/L ABG O2 Saturation (94-97) % Sodium (137-145) mmol/L Chloride (98-107) mmol/L Carbon Dioxide (22-30) mmol/L Glucose (74-99) mg/dL POC Glucose (mg/dL) 139 H 152 H (75-99) mg/dL Calcium (8.4-10.2) mg/dL Magnesium (1.6-2.3) mg/dL Total Bilirubin (0.2-1.3) mg/dL Total Protein (6.3-8.2) g/dL Albumin (3.5-5.0) g/dL Crossmatch 01/05/22 01/05/22 01/05/22 Range/Units 20:59 22:07 23:10 WBC (3.8-10.6) k/uL RBC (4.30-5.90) m/uL Neutrophils # (1.3-7.7) k/uL Lymphocytes # (1.0-4.8) k/uL Monocytes # (0-1.0) k/uL ABG pH (7.35-7.45) ABG pCO2 (35-45) mmHg ABG pO2 (83-108) mmHg ABG HCO3 (21-25) mmol/L ABG Total CO2 (19-24) mmol/L ABG O2 Saturation (94-97) % Sodium (137-145) mmol/L Chloride (98-107) mmol/L Carbon Dioxide (22-30) mmol/L Glucose (74-99) mg/dL POC Glucose (mg/dL) 134 H 130 H 130 H (75-99) mg/dL Calcium (8.4-10.2) mg/dL Magnesium (1.6-2.3) mg/dL Total Bilirubin (0.2-1.3) mg/dL Total Protein (6.3-8.2) g/dL Albumin (3.5-5.0) g/dL Crossmatch 01/06/22 01/06/22 01/06/22 Range/Units 01:03 02:03 03:17 WBC (3.8-10.6) k/uL RBC (4.30-5.90) m/uL Neutrophils # (1.3-7.7) k/uL Lymphocytes # (1.0-4.8) k/uL Monocytes # (0-1.0) k/uL ABG pH (7.35-7.45) ABG pCO2 (35-45) mmHg ABG pO2 (83-108) mmHg ABG HCO3 (21-25) mmol/L ABG Total CO2 (19-24) mmol/L ABG O2 Saturation (94-97) % Sodium (137-145) mmol/L Chloride (98-107) mmol/L Carbon Dioxide (22-30) mmol/L Glucose (74-99) mg/dL POC Glucose (mg/dL) 129 H 121 H 120 H (75-99) mg/dL Calcium (8.4-10.2) mg/dL Magnesium (1.6-2.3) mg/dL Total Bilirubin (0.2-1.3) mg/dL Total Protein (6.3-8.2) g/dL Albumin (3.5-5.0) g/dL Crossmatch 01/06/22 01/06/22 01/06/22 Range/Units 05:40 05:40 05:41 WBC 18.1 H (3.8-10.6) k/uL RBC 4.08 L (4.30-5.90) m/uL Neutrophils # 15.4 H (1.3-7.7) k/uL Lymphocytes # 0.9 L (1.0-4.8) k/uL Monocytes # 1.6 H (0-1.0) k/uL ABG pH (7.35-7.45) ABG pCO2 (35-45) mmHg ABG pO2 (83-108) mmHg ABG HCO3 (21-25) mmol/L ABG Total CO2 (19-24) mmol/L ABG O2 Saturation (94-97) % Sodium 133 L (137-145) mmol/L Chloride (98-107) mmol/L Carbon Dioxide 21 L (22-30) mmol/L Glucose 127 H (74-99) mg/dL POC Glucose (mg/dL) 131 H (75-99) mg/dL Calcium (8.4-10.2) mg/dL Magnesium 2.5 H (1.6-2.3) mg/dL Total Bilirubin 1.5 H (0.2-1.3) mg/dL Total Protein 5.9 L (6.3-8.2) g/dL Albumin (3.5-5.0) g/dL Crossmatch 01/06/22 01/06/22 01/06/22 Range/Units 07:24 08:39 10:23 WBC (3.8-10.6) k/uL RBC (4.30-5.90) m/uL Neutrophils # (1.3-7.7) k/uL Lymphocytes # (1.0-4.8) k/uL Monocytes # (0-1.0) k/uL ABG pH (7.35-7.45) ABG pCO2 (35-45) mmHg ABG pO2 (83-108) mmHg ABG HCO3 (21-25) mmol/L ABG Total CO2 (19-24) mmol/L ABG O2 Saturation (94-97) % Sodium (137-145) mmol/L Chloride (98-107) mmol/L Carbon Dioxide (22-30) mmol/L Glucose (74-99) mg/dL POC Glucose (mg/dL) 139 H 146 H 122 H (75-99) mg/dL Calcium (8.4-10.2) mg/dL Magnesium (1.6-2.3) mg/dL Total Bilirubin (0.2-1.3) mg/dL Total Protein (6.3-8.2) g/dL Albumin (3.5-5.0) g/dL Crossmatch 01/06/22 Range/Units 12:27 WBC (3.8-10.6) k/uL RBC (4.30-5.90) m/uL Neutrophils # (1.3-7.7) k/uL Lymphocytes # (1.0-4.8) k/uL Monocytes # (0-1.0) k/uL ABG pH (7.35-7.45) ABG pCO2 (35-45) mmHg ABG pO2 (83-108) mmHg ABG HCO3 (21-25) mmol/L ABG Total CO2 (19-24) mmol/L ABG O2 Saturation (94-97) % Sodium (137-145) mmol/L Chloride (98-107) mmol/L Carbon Dioxide (22-30) mmol/L Glucose (74-99) mg/dL POC Glucose (mg/dL) 117 H (75-99) mg/dL Calcium (8.4-10.2) mg/dL Magnesium (1.6-2.3) mg/dL Total Bilirubin (0.2-1.3) mg/dL Total Protein (6.3-8.2) g/dL Albumin (3.5-5.0) g/dL Crossmatch Assessment and Plan Assessment: Impression: Status post mitral valve repair, postoperative day #1. Postoperative atelectasis, expected. History of benign essential hypertension. History of mitral regurgitation. History of ventricular tachycardia. 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 History of cellulitis. Recommendation: Titrate oxygen accordingly, patient is now on 4 L nasal cannula. Continue GI and DVT prophylaxis. Resume cardiac meds. Discontinue unnecessary catheters and lines. Ambulate Continue incentive spirometry. We'll continue to follow while in the ICU Time with Patient: Less than 30
[2022-01-06 13:07] LABS: Glucose,Whole Blood 126 mg/dL (75-99)
[2022-01-06 14:34] VITALS: BMI 38.7
[2022-01-06 14:38] LABS: Glucose,Whole Blood 159 mg/dL (75-99)
[2022-01-06 15:26] LABS: Glucose,Whole Blood 154 mg/dL (75-99)
[2022-01-06 16:24] LABS: Glucose,Whole Blood 131 mg/dL (75-99)
[2022-01-06 17:31] LABS: Glucose,Whole Blood 115 mg/dL (75-99)
[2022-01-06 18:32] LABS: Glucose,Whole Blood 99 mg/dL (75-99)
[2022-01-06] MEDS: LACTATED RINGERS 1,000 ML IV SCH (20:31)
[2022-01-06] MEDS: SENNOSIDES-DOCUSATE SODIUM 1 EACH TAB PO SCH (21:51)
[2022-01-06 22:26] LABS: Glucose,Whole Blood 126 mg/dL (75-99)
[2022-01-07 00:30] LABS: Glucose,Whole Blood 123 mg/dL (75-99)
[2022-01-07] MEDS: KETOROLAC 30 MG/ML 1 ML VIAL IVP SCH ×2 (00:40→06:18)
[2022-01-07] MEDS: HEPARIN SODIUM,PORCINE/PF 5,000 UNIT/0.5 ML SYRINGE SQ SCH ×4 (00:41→23:12)
[2022-01-07 02:25] LABS: Glucose,Whole Blood 119 mg/dL (75-99)
[2022-01-07] MEDS: HYDROcodone/APAP 5-325MG 1 EACH TAB PO PRN ×4 (05:48→20:32)
[2022-01-07 05:56] LABS: Glucose,Whole Blood 122 mg/dL (75-99)
[2022-01-07 06:47] LABS: Basophils % (A) 0 %; Eosinophils % (A) 0 %; HGB 11.7 gm/dL (13.0-17.5); Lymphocytes # (A) 1.5 k/uL (1.0-4.8); Lymphocytes % (A) 10 %; MCH 33.5 pg (25.0-35.0); MCHC 34.4 g/dL (31.0-37.0); MCV 97.4 fL (80.0-100.0); Monocytes # (A) 1.6 k/uL (0-1.0); Monocytes % (A) 10 %; Neutrophils # (A) 12.9 k/uL (1.3-7.7); Neutrophils % (A) 79 %; Platelet Count 157 k/uL (150-450); RBC 3.49 m/uL (4.30-5.90); WBC 16.2 k/uL (3.8-10.6)
[2022-01-07 06:49] LABS: Ionized Calcium 4.8 mg/dL (4.5-5.3)
[2022-01-07] MEDS: PANTOPRAZOLE 40 MG TABLET PO SCH (07:01)
[2022-01-07 07:10] LABS: Albumin 3.5 g/dL (3.5-5.0); Calcium 8.6 mg/dL (8.4-10.2); Potassium 4.3 mmol/L (3.5-5.1); Total Bilirubin 1.6 mg/dL (0.2-1.3); Total Protein 5.9 g/dL (6.3-8.2)
--- NOTE | 2022-01-07 07:56 | P.PN ---
Subjective Progress Note Date: 01/07/22 Principal diagnosis: Mitral regurgitation. Previous medical history of hypertension, episode of ventricular tachycardia after having red man syndrome from vancomycin, never smoker, remote history of pneumonia. 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 States pain is controlled on current medication regimen, denies shortness of breath. Remains in sinus rhythm to sinus radha with heart rate in the mid 50s to low 60s, hemodynamically stable. He had a relatively uneventful night. Mediastinal/left pleural chest tubes, right internal jugular Cordis, left radial arterial line all remaining present. No other new concerns. Objective - Vital Signs Vital signs: Vital Signs Temp 98.9 F 01/07/22 04:00 Pulse 61 01/07/22 06:00 Resp 22 01/07/22 06:00 BP 112/64 01/07/22 06:00 Pulse Ox 94 L 01/07/22 06:00 Intake & Output 01/06/22 01/07/22 01/07/22 18:59 06:59 18:59 Intake Total 2231.047 2109.398 Output Total 594 519 Balance 6458.571 3214.398 Weight 136.7 kg 139 kg Intake: IV 974 572 Albumin Human 5% 250 ml 250 250 In Empty Bag 1 bag @ 250 mls/hr IVPB Q1HR PRN Rx#: [id number] CO/CI 30 Lactated Ringers 1,000 ml 510 250 @ 20 mls/hr IV .Q24H [facility] Rx#:[id number] Pressure 84 72 ceFAZolin 3 gm In Sodium 100 Chloride 0.9% 100 ml @ 100 mls/hr IVPB Q8HR [facility] Rx#:[id number] Intake, IV Titration 257.047 7.398 Amount Amiodarone 450 mg In 231.949 Dextrose 5% in Water 250 ml @ 0.5 MG/MIN 16.667 mls/hr IV .Q15H [facility] Rx#: [id number] Insulin Regular 100 unit 25.098 7.398 In Sodium Chloride 0.9% 100 ml @ Per Protocol IV .Q0M [facility] Rx#:[id number] Oral 1000 1280 Tube Feeding 250 Output: Chest Tube Drainage 310 136 Left Pleural/Mediastinal 140 96 Mediastinal 170 40 Urine 284 383 Other: Voiding Method Indwelling Catheter Indwelling Catheter ABP, PAP, CO, CI - Last Documented Arterial Blood Pressure 111/64 Pulmonary Artery Pressure 28/11 Cardiac Output 5 Cardiac Index 2.5 - Exam CONSTITUTIONAL: Appears comfortable, cooperative, no acute distress RESPIRATORY: Lungs sounds diminished bilaterally. Respirations even, nonlabored. Currently on 2 L nasal cannula with oxygen saturation 96%. Able to achieve 1500 mL on incentive spirometry. Strong cough. CARDIOVASCULAR: S1, S2 present. Slow but regular rate and rhythm, sinus rhythm to sinus bradycardia on telemetry. Sternum stable. Palpable peripheral pulses bilaterally. No edema present. No calf pain or tenderness noted. Heart hugger in place with patient demonstrating appropriate use. Antiembolism stockings, SCDs present. GASTROINTESTINAL: Abdomen soft, nontender, nondistended. Active bowel sounds present 4 quadrants. Tolerating diet. Negative flatus GENITOURINARY: Abreu present draining clear, yellow urine. Output overnight 30-40 mL per hour INTEGUMENTARY: Skin is warm and dry with evidence of good perfusion. Anterior chest incision well approximated and covered with dry intact dressing. NEUROLOGIC: Cranial nerves II through XII intact MUSKULOSKELETAL: Able to move all extremities, strength equal bilaterally, gait normal PSYCHIATRIC: Alert and oriented to person place and time, appropriate affect, intact judgment and insight INVASIVE LINES AND TUBES: Mediastinal/left pleural chest tubes present and connected to wall suction, no air leaks present. Mediastinal tube with 30 mL serosanguineous drainage overnight, 250 mL in the last 24 hours. Left pleural chest tube with 10 mL serosanguineous drainage overnight, 400 mL in the last 24 hours. A/V epicardial pacemaker wires present, connected to generator, VVI mode with backup rate 50 bpm. Right internal jugular Cordis, left radial arterial line present. - Allied health notes Allied health notes reviewed: nursing - Labs CBC & Chem 7: 01/07/22 06:20 01/07/22 06:20 Labs: Abnormal Lab Results - Last 24 Hours (Table) 01/06/22 01/06/22 01/06/22 Range/Units 08:39 10:23 12:27 WBC (3.8-10.6) k/uL RBC (4.30-5.90) m/uL Hgb (13.0-17.5) gm/dL Hct (39.0-53.0) % Neutrophils # (1.3-7.7) k/uL Monocytes # (0-1.0) k/uL Sodium (137-145) mmol/L Carbon Dioxide (22-30) mmol/L BUN (9-20) mg/dL Creatinine (0.66-1.25) mg/dL Glucose (74-99) mg/dL POC Glucose (mg/dL) 146 H 122 H 117 H (75-99) mg/dL Total Bilirubin (0.2-1.3) mg/dL Total Protein (6.3-8.2) g/dL 01/06/22 01/06/22 01/06/22 Range/Units 13:05 14:36 15:25 WBC (3.8-10.6) k/uL RBC (4.30-5.90) m/uL Hgb (13.0-17.5) gm/dL Hct (39.0-53.0) % Neutrophils # (1.3-7.7) k/uL Monocytes # (0-1.0) k/uL Sodium (137-145) mmol/L Carbon Dioxide (22-30) mmol/L BUN (9-20) mg/dL Creatinine (0.66-1.25) mg/dL Glucose (74-99) mg/dL POC Glucose (mg/dL) 126 H 159 H 154 H (75-99) mg/dL Total Bilirubin (0.2-1.3) mg/dL Total Protein (6.3-8.2) g/dL 01/06/22 01/06/22 01/06/22 Range/Units 16:24 17:29 22:24 WBC (3.8-10.6) k/uL RBC (4.30-5.90) m/uL Hgb (13.0-17.5) gm/dL Hct (39.0-53.0) % Neutrophils # (1.3-7.7) k/uL Monocytes # (0-1.0) k/uL Sodium (137-145) mmol/L Carbon Dioxide (22-30) mmol/L BUN (9-20) mg/dL Creatinine (0.66-1.25) mg/dL Glucose (74-99) mg/dL POC Glucose (mg/dL) 131 H 115 H 126 H (75-99) mg/dL Total Bilirubin (0.2-1.3) mg/dL Total Protein (6.3-8.2) g/dL 01/07/22 01/07/22 01/07/22 Range/Units 00:28 02:23 05:55 WBC (3.8-10.6) k/uL RBC (4.30-5.90) m/uL Hgb (13.0-17.5) gm/dL Hct (39.0-53.0) % Neutrophils # (1.3-7.7) k/uL Monocytes # (0-1.0) k/uL Sodium (137-145) mmol/L Carbon Dioxide (22-30) mmol/L BUN (9-20) mg/dL Creatinine (0.66-1.25) mg/dL Glucose (74-99) mg/dL POC Glucose (mg/dL) 123 H 119 H 122 H (75-99) mg/dL Total Bilirubin (0.2-1.3) mg/dL Total Protein (6.3-8.2) g/dL 01/07/22 01/07/22 Range/Units 06:20 06:20 WBC 16.2 H (3.8-10.6) k/uL RBC 3.49 L (4.30-5.90) m/uL Hgb 11.7 L (13.0-17.5) gm/dL Hct 34.0 L (39.0-53.0) % Neutrophils # 12.9 H (1.3-7.7) k/uL Monocytes # 1.6 H (0-1.0) k/uL Sodium 129 L (137-145) mmol/L Carbon Dioxide 21 L (22-30) mmol/L BUN 30 H (9-20) mg/dL Creatinine 1.36 H (0.66-1.25) mg/dL Glucose 114 H (74-99) mg/dL POC Glucose (mg/dL) (75-99) mg/dL Total Bilirubin 1.6 H (0.2-1.3) mg/dL Total Protein 5.9 L (6.3-8.2) g/dL - Imaging and Cardiology Chest x-ray: image reviewed Assessment and Plan Assessment: 1. Mitral regurgitation, status post complex mitral valve repair 2. History of hypertension 3. Episode of ventricular tachycardia after having red man syndrome from van comycin 4. Never smoker, preoperative FEV1 83% of predicted 5. Remote history of pneumonia 6. Remains unvaccinated against Covid Plan: 1. Continue aspirin, statin, Plavix. Will start low dose beta tessa with hold parameters, will increase as tolerated 2. Continue amiodarone for A. fib prophylaxis 3. Wean O2 as tolerated. Encourage incentive spirometry use. Bronchodilators per pulmonology 4. Increase activity, ambulate as tolerated. PT/OT/cardiac rehab following 5. Will monitor daily labs and x-rays. Electronic replacement per protocol. No lasix. Will place on fluid restrictions 6. GI/DVT prophylaxis 7. Pain control with current medication regimen 8. Insulin management per primary care service. Patient is not diabetic, preoperative hemoglobin A1c 5.7%, however patient does need tight blood sugar control to promote sternal union and prevent infection 9. Keep epicardial pacemaker wires connected to generator with VVI mode, backup rate 50 bpm 10. Discontinue Cordis, arterial line. DC epicardial wires, to be on bedrest for 1 hours post removal 11. Discontinue chest tubes 12. Disontinue Abreu catheter, may bladder scan and straight cath for >300 mL residual. 13. Strict accurate intake and output. Daily weights 14. Will place transfer orders for 3S cardiac step down, may transfer when bed available 15. More recommendations to follow Time with Patient: Greater than 30
[2022-01-07] MEDS: IPRATROPIUM-ALBUTEROL 3 ML NEB INHALATION SCH ×4 (08:24→19:13)
[2022-01-07 08:44] LABS: Glucose,Whole Blood 173 mg/dL (75-99)
--- NOTE | 2022-01-07 08:57 | XR ---
EXAMINATION TYPE: XR chest 1V portable DATE OF EXAM: 01/07/2022 COMPARISON: 01/06/2022 HISTORY: Postop TECHNIQUE: Single frontal view of the chest is obtained. FINDINGS: [place] catheter has been removed. Chest tube and mediastinal drain persist with postope rative change, bilateral infiltrate and pleural effusion. No pneumothorax. IMPRESSION: Bilateral infiltrate and tiny effusion could been the basis of postoperative atelectasis . Underlying pneumonia or CHF not excluded.
--- NOTE | 2022-01-07 09:01 | PN ---
PROGRESS NOTE Mr. Lopez is status post mitral valve repair. He is in sinus rhythm, doing well, recovering nicely. No chest pain at this time. His breathing is much better. S1-S2 heard normally. Soft apical systolic murmur noted. Lungs reveal improved air entry. Abdomen is soft. Rest of physical exam unchanged. Plan is to probably pull chest tubes today. Incentive spirometry. Pulmonary toilet. No new suggestions. MMODL / IJN: [id number] /
[2022-01-07] MEDS: ASPIRIN 325 MG TAB PO SCH (09:32)
[2022-01-07] MEDS: ASCORBIC ACID 500 MG TAB PO SCH ×2 (09:32→20:33)
[2022-01-07] MEDS: CLOPIDOGREL 75 MG TAB PO SCH (09:32)
[2022-01-07] MEDS: ATORVASTATIN 40 MG TAB PO SCH (09:32)
[2022-01-07] MEDS: METOPROLOL TARTRATE 12.5 MG TAB PO SCH ×2 (09:33→20:32)
[2022-01-07] MEDS: AMIODARONE 200 MG TAB PO SCH ×2 (09:33→20:33)
[2022-01-07] MEDS: MULTIVITAMINS, THERA 1 EACH TAB PO SCH (09:36)
[2022-01-07] MEDS: MUPIROCIN 2% OINT 22 GM TUBE NASAL SCH ×2 (09:36→20:33)
[2022-01-07 12:01] LABS: Glucose,Whole Blood 109 mg/dL (75-99)
[2022-01-07] MEDS: INSULIN ASPART (NovoLOG) 100 UNIT/ML VIAL SQ SCH ×3 (12:42→20:33)
--- NOTE | 2022-01-07 12:42 | P.PN ---
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 Patient is now on assist control rate of 16, tidal volume is 500, FiO2 50% and PEEP of 10. ABG prior to this ABG showed a pO2 of 239, pCO2 of 59 pH of 7.26, hence the patient was placed on a rate of 16 from 12, and FiO2 cut down from 100% to 50%. Shortly after I saw the patient, CPAP ABG showed a pO2 of 171 pCO2 of 45 pH of 7.33, hence proceeded to extubating the patient, uneventfully. Chest x-ray showed mostly postoperative changes, no acute process was noted. Minimal bibasilar atelectasis is noted which is expected post surgery Reevaluated today on 01/06/2022, patient remains in the ICU, he was extubated a few hours after he arrived to the ICU yesterday, and his postoperative course has been relatively uneventful. Patient is sitting in a recliner, he is relatively asymptomatic, he is on 4 L nasal cannula, mediastinal/left pleural chest tubes in place, patient is hemodynamically stable, not requiring any pressors. 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 Patient is doing well, sitting in a recliner in the intensive care units. On room air, does not seem to be in any distress. He is hemodynamically stable, he is in sinus rhythm, not requiring any pressors, he had a relatively uneventful night, continues to have chest tubes and these will be removed today. Chest x-ray minimal basilar atelectasis. No evidence of congestive heart failure. Renal functioning is a bit worse today compared to baseline. Objective - Vital Signs Vital signs: Vital Signs Temp 99 F 01/07/22 08:00 Pulse 54 L 01/07/22 11:00 Resp 14 01/07/22 11:00 BP 112/64 01/07/22 11:00 Pulse Ox 93 L 01/07/22 11:00 Intake & Output 01/06/22 01/07/22 01/07/22 18:59 06:59 18:59 Intake Total 2231.047 2109.398 404.386 Output Total 594 519 90 Balance 0901.929 4532.398 314.386 Weight 136.7 kg 139 kg Intake: IV 974 572 94 Albumin Human 5% 250 ml 250 250 In Empty Bag 1 bag @ 250 mls/hr IVPB Q1HR PRN Rx#: [id number] CO/CI 30 Lactated Ringers 1,000 ml 510 250 70 @ 20 mls/hr IV .Q24H [facility] Rx#:[id number] Pressure 84 72 24 ceFAZolin 3 gm In Sodium 100 Chloride 0.9% 100 ml @ 100 mls/hr IVPB Q8HR [facility] Rx#:[id number] Intake, IV Titration 257.047 7.398 10.386 Amount Amiodarone 450 mg In 231.949 Dextrose 5% in Water 250 ml @ 0.5 MG/MIN 16.667 mls/hr IV .Q15H [facility] Rx#: [id number] Insulin Regular 100 unit 25.098 7.398 10.386 In Sodium Chloride 0.9% 100 ml @ Per Protocol IV .Q0M [facility] Rx#:[id number] Oral 1000 1280 300 Tube Feeding 250 Output: Chest Tube Drainage 310 136 30 Left Pleural/Mediastinal 140 96 20 Mediastinal 170 40 10 Urine 284 383 60 Other: Voiding Method Indwelling Catheter Indwelling Catheter Indwelling Catheter ABP, PAP, CO, CI - Last Documented Arterial Blood Pressure 108/59 Pulmonary Artery Pressure 28/11 Cardiac Output 5 Cardiac Index 2.5 - Exam Physical Exam: Revealed a 61-year-old white male on room air, not in distress. Head: Atraumatic, normocephalic. HEENT:[Neck is supple.] [No neck masses.] [No thyromegaly.] [No JVD.] Chest: [Symmetrical chest expansion, diminished breath sounds at the bases no crackles or rhonchi or wheezes, mediastinal and pleural chest tubes noted. Cardiac Exam: [Normal S1 and S2, no S3 gallop, no murmur.] Abdomen: [Soft, nontender, no megaly, no rebound, no guarding, normal bowel sounds.] Extremities: [No clubbing, no edema, no cyanosis.] Neurological Exam: [No focal neurologic deficit.] Alert oriented 3. Psychiatric: Normal mood, affect and normal mental status examination. Skin: No rashes - Labs CBC & Chem 7: 01/07/22 06:20 01/07/22 06:20 Labs: Abnormal Lab Results - Last 24 Hours (Table) 01/06/22 01/06/22 01/06/22 Range/Units 13:05 14:36 15:25 WBC (3.8-10.6) k/uL RBC (4.30-5.90) m/uL Hgb (13.0-17.5) gm/dL Hct (39.0-53.0) % Neutrophils # (1.3-7.7) k/uL Monocytes # (0-1.0) k/uL Sodium (137-145) mmol/L Carbon Dioxide (22-30) mmol/L BUN (9-20) mg/dL Creatinine (0.66-1.25) mg/dL Glucose (74-99) mg/dL POC Glucose (mg/dL) 126 H 159 H 154 H (75-99) mg/dL Total Bilirubin (0.2-1.3) mg/dL Total Protein (6.3-8.2) g/dL 01/06/22 01/06/22 01/06/22 Range/Units 16:24 17:29 22:24 WBC (3.8-10.6) k/uL RBC (4.30-5.90) m/uL Hgb (13.0-17.5) gm/dL Hct (39.0-53.0) % Neutrophils # (1.3-7.7) k/uL Monocytes # (0-1.0) k/uL Sodium (137-145) mmol/L Carbon Dioxide (22-30) mmol/L BUN (9-20) mg/dL Creatinine (0.66-1.25) mg/dL Glucose (74-99) mg/dL POC Glucose (mg/dL) 131 H 115 H 126 H (75-99) mg/dL Total Bilirubin (0.2-1.3) mg/dL Total Protein (6.3-8.2) g/dL 01/07/22 01/07/22 01/07/22 Range/Units 00:28 02:23 05:55 WBC (3.8-10.6) k/uL RBC (4.30-5.90) m/uL Hgb (13.0-17.5) gm/dL Hct (39.0-53.0) % Neutrophils # (1.3-7.7) k/uL Monocytes # (0-1.0) k/uL Sodium (137-145) mmol/L Carbon Dioxide (22-30) mmol/L BUN (9-20) mg/dL Creatinine (0.66-1.25) mg/dL Glucose (74-99) mg/dL POC Glucose (mg/dL) 123 H 119 H 122 H (75-99) mg/dL Total Bilirubin (0.2-1.3) mg/dL Total Protein (6.3-8.2) g/dL 01/07/22 01/07/22 01/07/22 Range/Units 06:20 06:20 08:42 WBC 16.2 H (3.8-10.6) k/uL RBC 3.49 L (4.30-5.90) m/uL Hgb 11.7 L (13.0-17.5) gm/dL Hct 34.0 L (39.0-53.0) % Neutrophils # 12.9 H (1.3-7.7) k/uL Monocytes # 1.6 H (0-1.0) k/uL Sodium 129 L (137-145) mmol/L Carbon Dioxide 21 L (22-30) mmol/L BUN 30 H (9-20) mg/dL Creatinine 1.36 H (0.66-1.25) mg/dL Glucose 114 H (74-99) mg/dL POC Glucose (mg/dL) 173 H (75-99) mg/dL Total Bilirubin 1.6 H (0.2-1.3) mg/dL Total Protein 5.9 L (6.3-8.2) g/dL 01/07/22 Range/Units 11:59 WBC (3.8-10.6) k/uL RBC (4.30-5.90) m/uL Hgb (13.0-17.5) gm/dL Hct (39.0-53.0) % Neutrophils # (1.3-7.7) k/uL Monocytes # (0-1.0) k/uL Sodium (137-145) mmol/L Carbon Dioxide (22-30) mmol/L BUN (9-20) mg/dL Creatinine (0.66-1.25) mg/dL Glucose (74-99) mg/dL POC Glucose (mg/dL) 109 H (75-99) mg/dL Total Bilirubin (0.2-1.3) mg/dL Total Protein (6.3-8.2) g/dL Assessment and Plan Assessment: Impression: Status post mitral valve repair, postoperative day #2 Postoperative atelectasis, expected. History of benign essential hypertension. History of mitral regurgitation. History of ventricular tachycardia. 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 History of cellulitis. Recommendation: Continue cardiac meds including aspirin statins and Plavix. Add beta blockers. Continue amiodarone orally. Continue incentive spirometry. Ambulate daily. Continue GI and DVT prophylaxis. Patient will likely have his chest tubes removed today by cardiothoracic surgery, his Abreu catheter has been removed. Transfer sometime today to a cardiac monitored bed. We will continue to follow until discharge Time with Patient: Less than 30
[2022-01-07 17:10] LABS: Glucose,Whole Blood 118 mg/dL (75-99)
[2022-01-07 20:32] LABS: Glucose,Whole Blood 115 mg/dL (75-99)
[2022-01-07] MEDS: SENNOSIDES-DOCUSATE SODIUM 1 EACH TAB PO SCH (20:33)
[2022-01-08] MEDS: HYDROcodone/APAP 5-325MG 1 EACH TAB PO PRN (01:32)
[2022-01-08] MEDS: PANTOPRAZOLE 40 MG TABLET PO SCH (06:24)
[2022-01-08] MEDS: HEPARIN SODIUM,PORCINE/PF 5,000 UNIT/0.5 ML SYRINGE SQ SCH ×3 (06:24→21:50)
[2022-01-08 06:29] LABS: Glucose,Whole Blood 109 mg/dL (75-99)
[2022-01-08] MEDS: INSULIN ASPART (NovoLOG) 100 UNIT/ML VIAL SQ SCH ×4 (06:29→22:30)
[2022-01-08] MEDS: IPRATROPIUM-ALBUTEROL 3 ML NEB INHALATION SCH ×4 (07:47→20:38)
[2022-01-08 07:56] LABS: HCT 34.1 % (39.0-53.0); HGB 11.6 gm/dL (13.0-17.5); MCH 33.4 pg (25.0-35.0); MCV 98.3 fL (80.0-100.0); Mean Platelet Volume 8.1; Platelet Count 179 k/uL (150-450); RBC 3.47 m/uL (4.30-5.90); RDW 12.9 % (11.5-15.5); WBC 13.4 k/uL (3.8-10.6)
[2022-01-08 08:02] LABS: Calcium 8.7 mg/dL (8.4-10.2); Potassium 4.5 mmol/L (3.5-5.1)
[2022-01-08] MEDS ORDERED: FUROSEMIDE 10 MG/ML 2 ML VIAL IV ONE (08:08)
--- NOTE | 2022-01-08 08:12 | XR ---
EXAMINATION TYPE: XR chest 2V DATE OF EXAM: 01/08/2022 COMPARISON: Chest x-ray dated 01/07/2022 HISTORY: Status post cardiac surgery, chest tube removal TECHNIQUE: Frontal and lateral views of the chest are obtained. FINDINGS: There is been interval removal of bilateral chest tubes, patient is post median sternotomy and mitral valve replacement, median sternal drain no longer seen. No evident pneumothorax or pleura l effusion. Cardiac mediastinal silhouette is stable. Patchy basilar density persists. There are over lying leads. Central venous sheath is not seen. IMPRESSION: There is residual basilar atelectasis. No evident complication status post tube and line removal.
--- NOTE | 2022-01-08 08:15 | P.PN ---
Subjective Progress Note Date: 01/08/22 Principal diagnosis: Mitral regurgitation. Previous medical history of hypertension, episode of ventricular tachycardia after having red man syndrome from vancomycin, never smoker, remote history of pneumonia. 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 States pain is controlled on current medication regimen, denies shortness of breath. Remains in sinus rhythm with heart rate in the low 60s, hemodynamically stable. He had a relatively uneventful night. He has ambulated in the hallway without difficulty. Transfer orders were placed yesterday for 3 S. cardiac stepdown unit, however there are no beds available. No other new concerns. Objective - Vital Signs Vital signs: Vital Signs Temp 98.1 F 01/08/22 04:00 Pulse 65 01/08/22 07:56 Resp 18 01/08/22 07:56 BP 130/74 01/08/22 04:00 Pulse Ox 97 01/08/22 04:00 Intake & Output 01/07/22 01/08/22 01/08/22 18:59 06:59 18:59 Intake Total 534.386 320 Output Total 690 550 400 Balance -155.614 -230 -400 Intake: IV 124 0 Lactated Ringers 1,000 ml 100 0 @ 20 mls/hr IV .Q24H [facility] Rx#:[id number] Pressure 24 Intake, IV Titration 10.386 Amount Insulin Regular 100 unit 10.386 In Sodium Chloride 0.9% 100 ml @ Per Protocol IV .Q0M [facility] Rx#:[id number] Oral 400 320 Output: Chest Tube Drainage 30 Left Pleural/Mediastinal 20 Mediastinal 10 Urine 660 550 400 Other: Voiding Method Urinal Urinal # Voids 1 ABP, PAP, CO, CI - Last Documented Arterial Blood Pressure 108/59 Pulmonary Artery Pressure 28/11 Cardiac Output 5 Cardiac Index 2.5 - Exam CONSTITUTIONAL: Appears comfortable, cooperative, no acute distress RESPIRATORY: Lungs sounds diminished bilaterally. Respirations even, nonlabored. Currently on room air with oxygen saturation 97%. Able to achieve 2250 mL on incentive spirometry. Strong cough. CARDIOVASCULAR: S1, S2 present. Regular rate and rhythm, sinus rhythm on telemetry. Sternum stable. Palpable peripheral pulses bilaterally. Bilateral lower extremity edema present. No calf pain or tenderness noted. Heart hugger in place with patient demonstrating appropriate use. Antiembolism stockings, SCDs present. GASTROINTESTINAL: Abdomen soft, nontender, nondistended. Active bowel sounds present 4 quadrants. Tolerating diet. Positive flatus GENITOURINARY: Abreu discontinued yesterday, patient continues to void without difficulty INTEGUMENTARY: Skin is warm and dry with evidence of good perfusion. Anterior chest incision well approximated and covered with dry intact dressing. NEUROLOGIC: Cranial nerves II through XII intact MUSKULOSKELETAL: Able to move all extremities, strength equal bilaterally, gait normal PSYCHIATRIC: Alert and oriented to person place and time, appropriate affect, intact judgment and insight - Allied health notes Allied health notes reviewed: nursing - Labs CBC & Chem 7: 01/08/22 06:51 01/08/22 06:51 Labs: Abnormal Lab Results - Last 24 Hours (Table) 01/07/22 01/07/22 01/07/22 Range/Units 08:42 11:59 17:09 WBC (3.8-10.6) k/uL RBC (4.30-5.90) m/uL Hgb (13.0-17.5) gm/dL Hct (39.0-53.0) % Sodium (137-145) mmol/L BUN (9-20) mg/dL Glucose (74-99) mg/dL POC Glucose (mg/dL) 173 H 109 H 118 H (75-99) mg/dL 01/07/22 01/08/22 01/08/22 Range/Units 20:31 06:28 06:51 WBC 13.4 H (3.8-10.6) k/uL RBC 3.47 L (4.30-5.90) m/uL Hgb 11.6 L (13.0-17.5) gm/dL Hct 34.1 L (39.0-53.0) % Sodium (137-145) mmol/L BUN (9-20) mg/dL Glucose (74-99) mg/dL POC Glucose (mg/dL) 115 H 109 H (75-99) mg/dL 01/08/22 Range/Units 06:51 WBC (3.8-10.6) k/uL RBC (4.30-5.90) m/uL Hgb (13.0-17.5) gm/dL Hct (39.0-53.0) % Sodium 132 L (137-145) mmol/L BUN 24 H (9-20) mg/dL Glucose 100 H (74-99) mg/dL POC Glucose (mg/dL) (75-99) mg/dL - Imaging and Cardiology Chest x-ray: report reviewed, image reviewed Assessment and Plan Assessment: 1. Mitral regurgitation, status post complex mitral valve repair 2. History of hypertension 3. 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 Never smoker, preoperative FEV1 83% of predicted 5. Remote history of pneumonia 6. Remains unvaccinated against Covid Plan: 1. Continue aspirin, statin, Plavix, low dose beta tessa, will increase beta tessa as tolerated 2. Continue amiodarone for A. fib prophylaxis 3. Encourage incentive spirometry use. Bronchodilators per pulmonology 4. Increase activity, ambulate as tolerated. PT/OT/cardiac rehab following. Patient to receive first postoperative shower today 5. Will monitor daily labs and x-rays. Electronic replacement per protocol. Will give IV Lasix today 6. GI/DVT prophylaxis 7. Pain control with current medication regimen 8. Insulin management per primary care service. Patient is not diabetic, preoperative hemoglobin A1c 5.7%, however patient does need tight blood sugar control to promote sternal union and prevent infection 9. Strict accurate intake and output. Daily weights 10. Transfer orders placed yesterday for 3 S. cardiac stepdown unit, may transfer when bed available 11. Discharge planning in progress. Anticipate discharge to home with home care in the next 24-48 hours 12. More recommendations to follow Time with Patient: Greater than 30
--- NOTE | 2022-01-08 10:03 | PN ---
PROGRESS NOTE Mr. Lopez is status post mitral valve repair. He is progressing very well. He has no chest pain. He has some incisional pain but breathing much better. He is in sinus rhythm. Vitals are stable. No JVD. S1, S2 heard normally. Apical soft systolic murmur audible. Lungs reveal improved air entry. Abdomen and lower extremity exam unchanged. Plan is to continue current medications, incentive spirometry and possible discharge soon. MMODL / IJN: [id number] /
[2022-01-08] MEDS: ASPIRIN 325 MG TAB PO SCH (10:24)
[2022-01-08] MEDS: CLOPIDOGREL 75 MG TAB PO SCH (10:24)
[2022-01-08] MEDS: ASCORBIC ACID 500 MG TAB PO SCH ×2 (10:24→21:49)
[2022-01-08] MEDS: AMIODARONE 200 MG TAB PO SCH ×2 (10:24→21:48)
[2022-01-08] MEDS: ATORVASTATIN 40 MG TAB PO SCH (10:24)
[2022-01-08] MEDS: METOPROLOL TARTRATE 12.5 MG TAB PO SCH ×2 (10:24→21:48)
[2022-01-08] MEDS: MULTIVITAMINS, THERA 1 EACH TAB PO SCH (10:24)
[2022-01-08] MEDS: MUPIROCIN 2% OINT 22 GM TUBE NASAL SCH ×2 (10:27→21:48)
--- NOTE | 2022-01-08 11:35 | P.PN ---
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 Patient is now on assist control rate of 16, tidal volume is 500, FiO2 50% and PEEP of 10. ABG prior to this ABG showed a pO2 of 239, pCO2 of 59 pH of 7.26, hence the patient was placed on a rate of 16 from 12, and FiO2 cut down from 100% to 50%. Shortly after I saw the patient, CPAP ABG showed a pO2 of 171 pCO2 of 45 pH of 7.33, hence proceeded to extubating the patient, uneventfully. Chest x-ray showed mostly postoperative changes, no acute process was noted. Minimal bibasilar atelectasis is noted which is expected post surgery Reevaluated today on 01/06/2022, patient remains in the ICU, he was extubated a few hours after he arrived to the ICU yesterday, and his postoperative course has been relatively uneventful. Patient is sitting in a recliner, he is relatively asymptomatic, he is on 4 L nasal cannula, mediastinal/left pleural chest tubes in place, patient is hemodynamically stable, not requiring any pressors. 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 Patient is doing well, sitting in a recliner in the intensive care units. On room air, does not seem to be in any distress. He is hemodynamically stable, he is in sinus rhythm, not requiring any pressors, he had a relatively uneventful night, continues to have chest tubes and these will be removed today. Chest x-ray minimal basilar atelectasis. No evidence of congestive heart failure. Renal functioning is a bit worse today compared to baseline. 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 Patient is doing great today, asymptomatic, he is on room air, chest tubes have been removed, patient is doing great with incentive spirometry, chest x-ray is basically unremarkable. Patient is to be transferred today out of the ICU to a regular medical floor. Patient has been ambulating in the hallway. Without any difficulty. Objective - Vital Signs Vital signs: Vital Signs Temp 98.1 F 01/08/22 04:00 Pulse 65 01/08/22 07:56 Resp 18 01/08/22 07:56 BP 130/74 01/08/22 04:00 Pulse Ox 97 01/08/22 04:00 Intake & Output 01/07/22 01/08/22 01/08/22 18:59 06:59 18:59 Intake Total 534.386 320 478 Output Total 690 550 825 Balance -155.614 -230 -347 Intake: IV 124 0 Lactated Ringers 1,000 ml 100 0 @ 20 mls/hr IV .Q24H [facility] Rx#:[id number] Pressure 24 Intake, IV Titration 10.386 Amount Insulin Regular 100 unit 10.386 In Sodium Chloride 0.9% 100 ml @ Per Protocol IV .Q0M [facility] Rx#:[id number] Oral 400 320 478 Output: Chest Tube Drainage 30 Left Pleural/Mediastinal 20 Mediastinal 10 Urine 660 550 825 Other: Voiding Method Urinal Urinal # Voids 1 1 ABP, PAP, CO, CI - Last Documented Arterial Blood Pressure 108/59 Pulmonary Artery Pressure 28/11 Cardiac Output 5 Cardiac Index 2.5 - Exam Physical Exam: Revealed a 61-year-old white male on room air, not in distress. Head: Atraumatic, normocephalic. HEENT:[Neck is supple.] [No neck masses.] [No thyromegaly.] [No JVD.] Chest: [Symmetrical chest expansion, diminished breath sounds at the bases no crackles or rhonchi or wheezes Cardiac Exam: [Normal S1 and S2, no S3 gallop, no murmur.] Abdomen: [Soft, nontender, no megaly, no rebound, no guarding, normal bowel sounds.] Extremities: [No clubbing, no edema, no cyanosis.] Neurological Exam: [No focal neurologic deficit.] Alert oriented 3. Psychiatric: Normal mood, affect and normal mental status examination. Skin: No rashes - Labs CBC & Chem 7: 01/08/22 06:51 01/08/22 06:51 Labs: Abnormal Lab Results - Last 24 Hours (Table) 01/07/22 01/07/22 01/07/22 Range/Units 11:59 17:09 20:31 WBC (3.8-10.6) k/uL RBC (4.30-5.90) m/uL Hgb (13.0-17.5) gm/dL Hct (39.0-53.0) % Sodium (137-145) mmol/L BUN (9-20) mg/dL Glucose (74-99) mg/dL POC Glucose (mg/dL) 109 H 118 H 115 H (75-99) mg/dL 01/08/22 01/08/22 01/08/22 Range/Units 06:28 06:51 06:51 WBC 13.4 H (3.8-10.6) k/uL RBC 3.47 L (4.30-5.90) m/uL Hgb 11.6 L (13.0-17.5) gm/dL Hct 34.1 L (39.0-53.0) % Sodium 132 L (137-145) mmol/L BUN 24 H (9-20) mg/dL Glucose 100 H (74-99) mg/dL POC Glucose (mg/dL) 109 H (75-99) mg/dL Assessment and Plan Assessment: Impression: Status post mitral valve repair, postoperative day #3 Postoperative atelectasis, expected. Resolved History of benign essential hypertension. History of mitral regurgitation. History of ventricular tachycardia. 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 History of cellulitis. Recommendation: Continue cardiac meds including aspirin statins and Plavix. Add beta blockers. Continue amiodarone orally. Continue incentive spirometry. Continue ambulation Continue GI and DVT prophylaxis. Transfer sometime today to a cardiac monitored bed. Possible discharge home in the next 24 hours Time with Patient: Less than 30
[2022-01-08 11:53] LABS: Glucose,Whole Blood 115 mg/dL (75-99)
[2022-01-08] MEDS: ACETAMINOPHEN TAB 325 MG TAB PO PRN (13:27)
[2022-01-08 16:53] LABS: Glucose,Whole Blood 100 mg/dL (75-99)
[2022-01-08 21:21] LABS: Glucose,Whole Blood 110 mg/dL (75-99)
[2022-01-08] MEDS: SENNOSIDES-DOCUSATE SODIUM 1 EACH TAB PO SCH (21:48)
[2022-01-09 06:14] LABS: Glucose,Whole Blood 115 mg/dL (75-99)
[2022-01-09 06:39] VITALS: RESP 18
[2022-01-09] MEDS: PANTOPRAZOLE 40 MG TABLET PO SCH (06:42)
[2022-01-09] MEDS: IPRATROPIUM-ALBUTEROL 3 ML NEB INHALATION SCH ×4 (07:26→21:09)
[2022-01-09] MEDS: INSULIN ASPART (NovoLOG) 100 UNIT/ML VIAL SQ SCH ×4 (07:33→20:20)
[2022-01-09] MEDS: AMIODARONE 200 MG TAB PO SCH ×2 (07:38→20:56)
[2022-01-09] MEDS: ACETAMINOPHEN TAB 325 MG TAB PO PRN ×2 (07:38→17:30)
[2022-01-09] MEDS: METOPROLOL TARTRATE 12.5 MG TAB PO SCH (07:38)
[2022-01-09] MEDS: HEPARIN SODIUM,PORCINE/PF 5,000 UNIT/0.5 ML SYRINGE SQ SCH ×2 (07:38→14:44)
[2022-01-09] MEDS: ATORVASTATIN 40 MG TAB PO SCH (07:38)
[2022-01-09] MEDS: CLOPIDOGREL 75 MG TAB PO SCH (07:38)
[2022-01-09] MEDS: ASCORBIC ACID 500 MG TAB PO SCH ×2 (07:38→20:56)
[2022-01-09] MEDS: MULTIVITAMINS, THERA 1 EACH TAB PO SCH (07:38)
[2022-01-09] MEDS: ASPIRIN 325 MG TAB PO SCH (07:38)
--- NOTE | 2022-01-09 08:17 | XR ---
EXAMINATION TYPE: XR chest 2V DATE OF EXAM: 01/09/2022 COMPARISON: Chest x-ray 01/08/2022 HISTORY: Status post cardiac surgery TECHNIQUE: Frontal and lateral views of the chest are obtained. FINDINGS: There are overlying leads. Patchy basilar density persists. No evident pneumothorax or ple ural effusion. Cardiac mediastinal silhouette is unchanged. Patient is post median sternotomy. Promin ent lung volumes with flattening the hemidiaphragms suggests underlying COPD. Mitral valve replacemen t change is noted. IMPRESSION: Basilar atelectasis. Postop change.
[2022-01-09 08:24] LABS: African American GFR (CKD) >90 (>60 ml/min/1.73 sqM); Anion Gap 5 mmol/L; Blood Urea Nitrogen 19 mg/dL (9-20); Calcium 8.4 mg/dL (8.4-10.2); Carbon Dioxide 23 mmol/L (22-30); Chloride 106 mmol/L (98-107); Glucose 104 mg/dL (74-99); Non-African American GFR(CKD) 87 (>60 ml/min/1.73 sqM); Potassium 4.4 mmol/L (3.5-5.1); Sodium 134 mmol/L (137-145)
[2022-01-09 08:27] LABS: HCT 33.1 % (39.0-53.0); HGB 11.4 gm/dL (13.0-17.5); MCH 33.9 pg (25.0-35.0); MCHC 34.6 g/dL (31.0-37.0); MCV 98.2 fL (80.0-100.0); Mean Platelet Volume 7.6; Platelet Count 212 k/uL (150-450); RBC 3.37 m/uL (4.30-5.90); RDW 13.5 % (11.5-15.5); WBC 9.9 k/uL (3.8-10.6)
--- NOTE | 2022-01-09 10:08 | P.PN ---
Subjective Progress Note Date: 01/09/22 Principal diagnosis: Mitral valve regurgitation. Past medical history significant for hypertension, episode of ventricular tachycardia after having red man syndrome from [facility], lifetime nonsmoker, remote history of pneumonia. Remains unvaccinated against Covid-19. POD #4 complex mitral valve repair with resection of chordee from P2 and plication of the edge of P2 leaflet, annuloplasty with a 28 mm physio-2 ring, ligation of the left atrial appendage, epi-aortic ultrasound. Postoperative acute blood loss anemia, expected given hemodilution and cardiopulmonary bypass. The patient was seen in follow-up today 01/09/2022 at his bedside on the cardiac stepdown unit. Currently sitting up to the bedside chair, is awake, alert, oriented 3 and is in no acute distress. Denies any complaints of pain or shortness of breath at this time. He states that he feels ready to be discharged home. Oxygen saturations are 95% on room air and he is achieving 3000 mL on his incentive spirometry. He reports he has been up ambulating in his room and in the hallway with standby assistance from nursing and therapy staff. Remote telemetry is showing normal sinus rhythm heart rate 68 BPM. He has been afebrile the last 24 hours. No new concerns. Objective - Vital Signs Vital signs: Vital Signs Temp 98.1 F 01/09/22 07:24 Pulse 65 01/09/22 08:00 Resp 18 01/09/22 08:00 BP 124/68 01/09/22 07:24 Pulse Ox 99 01/09/22 07:24 Intake & Output 01/08/22 01/09/22 01/09/22 18:59 06:59 18:59 Intake Total 961 Output Total 2024 Balance -1064 Weight 136.8 kg 134.9 kg Intake: Oral 961 Output: Urine 2024 Other: Voiding Method Urinal Urinal Urinal # Voids 2 0 ABP, PAP, CO, CI - Last Documented Arterial Blood Pressure 108/59 Pulmonary Artery Pressure 28/11 Cardiac Output 5 Cardiac Index 2.5 - Exam CONSTITUTIONAL: Sitting up to the bedside chair on the third floor cardiac stepdown unit, appears comfortable, cooperative, no apparent acute distress. HEENT: Neck is supple, no JVD, no lymphadenopathy. RESPIRATORY: Lungs sounds essentially clear throughout, diminished to his bilateral bases. Respirations are symmetrical and nonlabored. Currently on room air with oxygen saturations 95%. Able to achieve 3000 mL on his incentive spirometry. Strong cough. CARDIOVASCULAR: Regular rhythm and rate. S1 and S2 present, negative for S3, gallop or murmur. Sternum is stable. Palpable peripheral pulses bilaterally, +1 edema to his bilateral lower extremities. No calf pain or tenderness noted. Heart hugger in place with patient demonstrating appropriate use. Knee-high JEREMY hose and sequential compression devices in place to his bilateral lower extremi ties. GASTROINTESTINAL: Abdomen soft, nontender, nondistended. Active bowel sounds present 4 quadrants. Tolerating diet. Passing flatus. No guarding or rigidity. Bowel movement yesterday 01/08/2022. GENITOURINARY: Continues to void. INTEGUMENTARY: Skin is warm and dry with no evidence of clubbing or cyanosis. Midline sternal incision clean dry and well approximated, covered with dry inta ct dressing. NEUROLOGIC: Cranial nerves II through XII intact. No focal deficits. MUSKULOSKELETAL: Able to move all extremities, strength equal bilaterally. PSYCHIATRIC: Alert and oriented to person place and time, appropriate affect, intact judgment and insight. - Allied health notes Allied health notes reviewed: nursing - Labs CBC & Chem 7: 01/09/22 07:34 01/09/22 07:34 Labs: Abnormal Lab Results - Last 24 Hours (Table) 01/08/22 01/08/22 01/08/22 Range/Units 11:51 16:52 21:17 RBC (4.30-5.90) m/uL Hgb (13.0-17.5) gm/dL Hct (39.0-53.0) % Sodium (137-145) mmol/L Glucose (74-99) mg/dL POC Glucose (mg/dL) 115 H 100 H 110 H (75-99) mg/dL 01/09/22 01/09/22 01/09/22 Range/Units 06:03 07:34 07:34 RBC 3.37 L (4.30-5.90) m/uL Hgb 11.4 L (13.0-17.5) gm/dL Hct 33.1 L (39.0-53.0) % Sodium 134 L (137-145) mmol/L Glucose 104 H (74-99) mg/dL POC Glucose (mg/dL) 115 H (75-99) mg/dL - Imaging and Cardiology Chest x-ray: report reviewed, image reviewed Assessment and Plan Assessment: 1. Mitral valve regurgitation, status post complex mitral valve repair 2. History of hypertension 3. 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 Lifetime nonsmoker, preoperative FEV1 83% of predicted 5. Remote history of pneumonia 6. Remains unvaccinated against Covid-19 Plan: 1. Continue aspirin, statin, Plavix, low dose beta tessa, will increase beta tessa as tolerated. 2. Continue amiodarone for A. fib prophylaxis. 3. Encourage incentive spirometry use 10 times every hour while awake. Bronchodilators per pulmonology. 4. Increase activity, ambulate as tolerated. PT/OT/cardiac rehab following. 5. Lasix 20 mg by mouth daily started today. We will discharge the patient on Lasix 20 mg by mouth daily 2 weeks. 6. GI/DVT prophylaxis. 7. Pain control with current medication regimen. 8. Insulin management per primary care service. Patient is not diabetic, preoperative hemoglobin A1c 5.7%, however patient does need tight blood sugar control to promote sternal union and prevent infection. 9. Strict accurate intake and output. Daily weights. 10. Discharge planning is in place. Anticipate discharge home with home health care in the next 24 hours. 11. More recommendations to follow based on patient's clinical course. Time with Patient: Greater than 30
[2022-01-09] MEDS ORDERED: FUROSEMIDE 20 MG TAB PO SCH (10:15)
[2022-01-09 11:21] LABS: Glucose,Whole Blood 96 mg/dL (75-99)
--- NOTE | 2022-01-09 12:23 | P.DS ---
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 Mitral valve regurgitation, status post complex mitral valve repair 2. History of hypertension 3. 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 Lifetime nonsmoker, preoperative FEV1 83% of predicted 5. Remote history of pneumonia 6. Remains unvaccinated against Covid-19 PRINCIPAL PROCEDURE: 1. Complex mitral valve repair with resection of chordae from P2 and plication of the edge of P2 leaflet, annuloplasty with a 28 physio-2 ring 2. Ligation of left atrial appendage 3. Epi-aortic ultrasound HISTORY OF PRESENT ILLNESS: This is a 61-year-old gentleman who follows on an outpatient basis with Dr. Brendon Bhatia for his primary care service. He also follows with Dr. Evelio Donovan for his cardiology care. Recently, the patient has had complaints of episodes of shortness of breath and lower extremity edema. Dr. Donovan has been following his mitral valve regurgitation for some time and on 11/18/2021 the patient underwent a transthoracic 2-D echocardiogram. The 2-D echocardiogram demonstrated moderate to severe eccentric mitral valve regurgitation with mild to moderate tricuspid valve regurgitation, a normal systolic function with an ejection fraction of 55-60% and grade 2 diastolic dysfunction. Subsequently, due to the patient's symptoms he was recommended to undergo a transesophageal echocardiogram and heart catheterization. On 11/28/2021 he underwent a transesophageal echocardiogram which demonstrated severe eccentric mitral valve regurgitation with prolapse of the leaflet and ruptured chordae with mild tricuspid valve regurgitation. Also for further evaluation the patient underwent a heart catheterization on 12/24/2021 which showed normal coronary arteries, 4+ mitral valve regurgitation and mild to moderate pulmonary hypertension. Due to the patient's symptoms and findings on his above-mentioned studies he was referred to Dr. Dimitry Hannah for further evaluation and treatment recommendations including mitral valve repair surgery. Dr. Hannah met with the patient, discussed treatment options including surgery, risks and benefits of surgery including the STS risk score were discussed with the patient and knowing and understanding the risks the patient wished to proceed with the surgical option. HOSPITAL COURSE: On 01/05/2022 the patient was brought to the hospital, and after obtaining consent was taken to the preoperative area, prepared in usual fashion and subsequently taken to the operating room where Dr. Dimitry Hannah performed a complex mitral valve repair with resection of chordae from P2 and plication of the edge of P2 leaflet, annuloplasty with a 28 physio-2 ring. Upon completion of the surgery the patient was transferred to the cardiovascular intensive care unit where he was recovered and monitored hemodynamically. He was extubated, all lines, tubes and supportive drips were discontinued when appropriate and he was transferred to the third floor cardiac stepdown unit for further monitoring and rehabilitation. His oxygen was titrated down, he continued to work with physical and occupational therapy, he was tolerating an oral diet, his pain was well-controlled and he was ready to be discharged home with a [facility] care on postoperative day #4. He has received written and verbal instructions regarding his medications, activity restrictions, signs and symptoms requiring physician on vacation and his follow- up appointments. Plan - Discharge Summary Discharge Rx Participant: No New Discharge Prescriptions: New Aspirin 325 mg PO DAILY tab Furosemide [Lasix] 20 mg PO DAILY #14 tab Metoprolol Tartrate [Lopressor] 12.5 mg PO BID #60 tab Pantoprazole [Protonix] 40 mg PO -BRFST #30 tab Amiodarone [Cordarone] 400 mg PO DAILY 14 Days #28 tab Atorvastatin [Lipitor] 40 mg PO DAILY #30 tab Clopidogrel [Plavix] 75 mg PO DAILY #30 tab Acetaminophen Tab [Tylenol] 650 mg PO Q4HR PRN tab PRN Reason: Fever and/ or Mild Pain Continue Multivit-Min/FA/Lycopen/Lutein [Centrum Silver Men Tablet] 1 each PO DAILY Ascorbic Acid [Vitamin C] 1,000 mg PO BID Discontinued Metoprolol Tartrate [Lopressor] 25 mg PO BID Furosemide [Lasix] 40 mg PO DAILY PRN PRN Reason: Edema Aspirin 81 mg PO DAILY Losartan [Cozaar] 50 mg PO DAILY Mupirocin [Mupirocin 2%] 1 applic NASAL BID #1 tub Discharge Medication List Ascorbic Acid [Vitamin C] 1,000 mg PO BID 11/24/21 [History] Multivit-Min/FA/Lycopen/Lutein [Centrum Silver Men Tablet] 1 each PO DAILY 11/24/21 [History] Acetaminophen Tab [Tylenol] 650 mg PO Q4HR PRN tab 01/09/22 [Rx] Amiodarone [Cordarone] 400 mg PO DAILY 14 Days #28 tab 01/09/22 [Rx] Aspirin 325 mg PO DAILY tab 01/09/22 [Rx] Atorvastatin [Lipitor] 40 mg PO DAILY #30 tab 01/09/22 [Rx] Clopidogrel [Plavix] 75 mg PO DAILY #30 tab 01/09/22 [Rx] Furosemide [Lasix] 20 mg PO DAILY #14 tab 01/09/22 [Rx] Metoprolol Tartrate [Lopressor] 12.5 mg PO BID #60 tab 01/09/22 [Rx] Pantoprazole [Protonix] 40 mg PO AC-BRKFST #30 tab 01/09/22 [Rx] Follow up Appointment(s)/Referral(s): Delaney Santos NPC [Nurse Practitioner] - 01/14/22 1:00 pm (You will be seen in the surgeon's office behind the hospital at [facility] (across the alvarez from Dr. Bhatia's office), [address], [address]. Office phone number is ) Evelio Donovan MD [STAFF PHYSICIAN] - 01/19/22 3:15 pm [facility] PATEL,Cardiac [NON-STAFF] - 4 Weeks (You will be called in 4-6 weeks for evaluation for cardiac rehab) [facility] [[facility] - ([facility] will call you to schedule your in home nursing and therapy visits. Please call them if you have any questions regarding your home care services. ) Renee Warner NPC [Nurse Practitioner] - 01/22/22 3:30 pm Dimitry Hannah MD [STAFF PHYSICIAN] - 02/05/22 1:00 pm Brendon Bhatia MD [Primary Care Provider] - 2 Weeks Ambulatory/Diagnostic Orders: Complete Blood Count w/diff [LAB.AMB] Time Frame: 01/12/22, Facility: [facility], Location: Laboratory [facility] Comprehensive Metabolic Panel [LAB.AMB] Time Frame: 01/12/22, Facility: [facility], Location: Laboratory [facility] Activity/Diet/Wound Care/Special Instructions: DISCHARGE INSTRUCTIONS: 1. No driving for 4 weeks, or until physician gives their ok. 2. The patient should sleep in their own bed, no medical bed needed. 3. Stairs are not an issue. If the bedroom is upstairs, it is advised that the patient go up at night and down in the morning for the first week. Go slowly, using handrail and take 1 step at a time. 4. JEREMY hose are to be worn for 30 days or until physician discontinues. 5. Heart hugger is to be worn 100% of the time until physician discontinues.(except when showering) 6. No lifting, pushing, or pulling more than 10 pounds for 12 weeks. The physician will advise of any restriction changes. 7. The patient is expected to continue the prescribed walking program. 8. Continue pain control per as needed orders. 9. Continue with incentive spirometry and splinting/heart hugger until otherwise directed by the physician. 10. Must shower daily using liquid antibacterial soap and a separate white washcloth for each individual incision. 11. Routine sternal incision care. No powders, lotions, ointments on incisions. No dressings are necessary on incisions unless they are draining. Dermabond tape is to remain on sternal incision until surgeon follow-up. 12. Please call surgeon/REVENUE STAMP CLERK for temp greater than 101 F or purulent drainage from incisions. 13. Please weigh your self every morning, record and bring with you to follow- up appointments 14. All prescriptions given by surgeon for 30 days. Refills need to be filled through poultry barn manager/primary care physician. 15. A Red armband has been placed on the patient. It should be worn for 30 days post surgery and will be removed by the cardiac surgeons. If an ER visit is necessary, please make sure the number on the Red armband is called. 16. You have been referred to and are expected to begin Cardiac Rehab in approximately 4-6 weeks. HOME HEALTH SERVICES TO PROVIDE: RN SKILLED HOME CARE SERVICES FOR POST-OP SURGICAL PATIENTS WITH THE FOLLOWING: Coronary Artery Bypass Surgery (CABG), Mitral Valve Replacement/R epair ( MVR), Aortic Valve Replacement/Repair (AVR) RN TO CONTINUE EDUCATION FROM ``ROAD TO A HEALTH HEART PATIENT EDUCATION MANUAL (GIVEN TO PATIENT IN THE HOSPITAL) MEDICATION RECONCILIATION WITH EDUCATION NEEDED ON FIRST HOME VISIT EMPHASIZE IMPORTANCE OF WEARING BREAST SUPPORT/HEART HUGGER ENCOURAGE USE OF INCENTIVE SPIROMETER 10 X EVERY HOUR WHILE AWAKE ENCOURAGE UTILIZATION OF LOWER EXTREMITY COMPRESSION STOCKINGS/EJREMY HOSE and ELEVATE LEGS ABOVE LEVEL OF HEART WHILE AT REST. ENCOURAGE AMBULATION 3-5x/day INCREASING TOLERATES, WHILE AVOIDING EXTREMES IN TEMPERATURE FREQUENCY: RN TO OPEN THE PATIENT WITHIN 24 HOURS OF DISCHARGE FROM THE HOSPITAL WITH TELEHEALTH INSTALLED AT [facility], RN TO VISIT 2-3 X A WEEK FOR 4 WEEKS ESTABLISHED BY PATIENT NEEDS. LABORATORY: CBC, CMP TO BE DRAWN ON THE THIRD DAY HOME, (RAN STAT) FAX RESULTS TO [phone]. TELEHEALTH PARAMETERS: WEIGHT: NOTIFY MD OF WEIGHT GAIN OF 2 LBS IN 24 HOURS OR 5 LBS IN ONE WEEK HR: NOTIFY MD OF HR <55 BPM OR HR>100 BPM BP: NOTIFY MD IF BP <90/55 OR BP>140/100 O2 SAT: NOTIFY MD IF PO2<93% ON ROOM AIR SEND TELEHEALTH REPORT TO SHOOTING GALLERY OPERATOR AND CARDIOVASCULAR SURGEON THE FIRST WEEK OF CARE AND THEN BI-WEEKLY. PLEASE ADDITIONALLY COMMUNICATE ANY ABNORMALS AND NEW FINDINGS TO THE SURGEONS OFFICE. Discharge Disposition: HOME WITH HOME HEALTH SERVICES
--- NOTE | 2022-01-09 12:25 | P.PN ---
Subjective Progress Note Date: 01/09/22 HISTORY OF PRESENT ILLNESS: Patient is status post mitral valve repair. Patient examined this morning at the bedside. Patient denies chest pain or pressure. He denies shortness of breath. He has been ambulating in the hallway this morning. Telemetry reveals sinus mechanism. Vital signs are stable. PHYSICAL EXAM: VITAL SIGNS: Reviewed. GENERAL: Well-developed in no acute distress. NECK: Supple. No JVD or thyromegaly LUNGS: Respirations even and unlabored. Lungs essentially clear to auscultation bilaterally. HEART: Regular rate and rhythm. S1 and S2 heard. EXTREMITIES: Normal range of motion. No clubbing or cyanosis. Peripheral pulses intact. No lower extremity edema ASSESSMENT: Mitral valve regurgitation, status post complex mitral valve repair Hypertension PLAN: Continue current cardiac medications Patient is stable for DC home today from a cardiac standpoint Patient to follow up with Dr. Donovan Nurse practitioner note has been reviewed by physician. Signing provider agrees with the documented findings, assessment, and plan of care. Objective - Vital Signs Vital signs: Vital Signs Temp 98.1 F 01/09/22 07:24 Pulse 65 01/09/22 08:00 Resp 18 01/09/22 08:00 BP 124/68 01/09/22 07:24 Pulse Ox 99 01/09/22 07:24 Intake & Output 01/08/22 01/09/22 01/09/22 18:59 06:59 18:59 Intake Total 961 240 Output Total 2024 Balance -1064 240 Weight 136.8 kg 134.9 kg Intake: Oral 961 240 Output: Urine 2024 Other: Voiding Method Urinal Urinal Urinal # Voids 2 0 ABP, PAP, CO, CI - Last Documented Arterial Blood Pressure 108/59 Pulmonary Artery Pressure 28/11 Cardiac Output 5 Cardiac Index 2.5 - Labs CBC & Chem 7: 01/09/22 07:34 01/09/22 07:34 Labs: Abnormal Lab Results - Last 24 Hours (Table) 01/08/22 01/08/22 01/09/22 Range/Units 16:52 21:17 06:03 RBC (4.30-5.90) m/uL Hgb (13.0-17.5) gm/dL Hct (39.0-53.0) % Sodium (137-145) mmol/L Glucose (74-99) mg/dL POC Glucose (mg/dL) 100 H 110 H 115 H (75-99) mg/dL 01/09/22 01/09/22 Range/Units 07:34 07:34 RBC 3.37 L (4.30-5.90) m/uL Hgb 11.4 L (13.0-17.5) gm/dL Hct 33.1 L (39.0-53.0) % Sodium 134 L (137-145) mmol/L Glucose 104 H (74-99) mg/dL POC Glucose (mg/dL) (75-99) mg/dL
[2022-01-09] MEDS ORDERED: DEXTROSE 5% IN WATER 100 ML with AMIODARONE 150 MG IV ONE ×3 (13:47→18:51)
[2022-01-09] MEDS ORDERED: FUROSEMIDE 10 MG/ML 2 ML VIAL IV ONE (15:24)
--- NOTE | 2022-01-09 15:40 | P.PN ---
<Melba Nixon M - Last Filed: 01/09/22 15:26> Subjective Progress Note Date: 01/09/22 Principal diagnosis: Mitral valve regurgitation On 01/09/2022 patient seen in follow-up on selective care unit. Patient is postoperative day #4, status post Mitral valve repair with resection of chordee from P2 and plication of the edge of P2 leaflet, annuloplasty with a 28 mm physio- 2 ring, ligation of the left atrial appendage, epi-aortic ultrasound. Patient is breathing comfortably, he is on room air, with a pulse ox of 99%. His chest x-ray showing basilar atelectasis, postop changes. Basilar atelectasis and postoperative changes. No acute events overnight. Patient has been ambulating, tolerating activity well. Today's labs have been reviewed, with concomitant 0.9, hemoglobin is 11.4, sodium was 134, the electrolytes were unremarkable. Incentive spirometer effort is 2750 today. Midsternal incision is clean dry and intact, chest tube sites are clean dry and intact. Objective - Vital Signs Vital signs: Vital Signs Temp 98.1 F 01/09/22 07:24 Pulse 65 01/09/22 14:00 Resp 18 01/09/22 14:00 BP 124/68 01/09/22 07:24 Pulse Ox 99 01/09/22 07:24 Intake & Output 01/08/22 01/09/22 01/09/22 18:59 06:59 18:59 Intake Total 961 780 Output Total 2024 Balance -1064 355 Weight 136.8 kg 134.9 kg Intake: Oral 961 780 Output: Urine 2024 Other: Voiding Method Urinal Urinal Urinal # Voids 2 0 ABP, PAP, CO, CI - Last Documented Arterial Blood Pressure 108/59 Pulmonary Artery Pressure 28/11 Cardiac Output 5 Cardiac Index 2.5 - Exam GENERAL EXAM: Alert, very pleasant on room air with a pulse ox of 99% comfortable in no apparent distress. HEAD: Normocephalic/atraumatic. EYES: Normal reaction of pupils, equal size. Conjunctiva pink, sclera white. NOSE: Clear with pink turbinates. THROAT: No erythema or exudates. NECK: No masses, no JVD, no thyroid enlargement, no adenopathy. CHEST: No chest wall deformity. Symmetrical expansion. Midsternal incision is clean dry and intact, covered with dressing, chest tube sites are clean dry and intact LUNGS: Equal air entry with no crackles, wheeze, rhonchi or dullness. CVS: Regular rate and rhythm, normal S1 and S2, no gallops, no murmurs, no rubs ABDOMEN: Soft, nontender. No hepatosplenomegaly, normal bowel sounds, no guarding or rigidity. EXTREMITIES: No clubbing, no edema, no cyanosis, 2+ pulses and upper and lower extremities. MUSCULOSKELETAL: Muscle strength and tone normal. SPINE: No scoliosis or deformity SKIN: No rashes CENTRAL NERVOUS SYSTEM: Alert and oriented -3. No focal deficits, tone is normal in all 4 extremities. PSYCHIATRIC: Alert and oriented -3. Appropriate affect. Intact judgment and insight. - Labs CBC & Chem 7: 01/09/22 07:34 01/09/22 07:34 Labs: Abnormal Lab Results - Last 24 Hours (Table) 01/08/22 01/08/22 01/09/22 Range/Units 16:52 21:17 06:03 RBC (4.30-5.90) m/uL Hgb (13.0-17.5) gm/dL Hct (39.0-53.0) % Sodium (137-145) mmol/L Glucose (74-99) mg/dL POC Glucose (mg/dL) 100 H 110 H 115 H (75-99) mg/dL 01/09/22 01/09/22 Range/Units 07:34 07:34 RBC 3.37 L (4.30-5.90) m/uL Hgb 11.4 L (13.0-17.5) gm/dL Hct 33.1 L (39.0-53.0) % Sodium 134 L (137-145) mmol/L Glucose 104 H (74-99) mg/dL POC Glucose (mg/dL) (75-99) mg/dL Assessment and Plan Plan: Assessment: #1. Severe mitral valve regurgitation, status post complex mitral valve repair, postoperative day #4 #2. Postoperative atelectasis, expected #3. History of benign essential hypertension #4. 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 History of cellulitis #6. Postoperative atrial flutter with RVR on 01/09/2022, and patient is receiving amiodarone per protocol per CT surgery #7. Lifetime nonsmoker Plan: Continue encouraging deep breathing and coughing Patient is breathing comfortably, Today's chest x-ray showing atelectasis Patient has developed a flutter with RVR Patient is receiving amiodarone infusion per CT surgery His discharge has been held We'll continue to follow his clinical course I performed a history & physical examination of the patient and discussed their management with my nurse practitioner, Melba Nixon. I reviewed the nurse practitioner's note and agree with the documented findings and plan of care. Lung sounds are positive for dim breath sounds throughout the lung wright. The findings and the impression was discussed with the patient. I attest to the documentation by the nurse practitioner. I have personally seen and examined the patient, performed the documentation and the assessment and plan as written. Number of minutes spent on the visit: [10] Time with Patient: Less than 30 <Cy Hernandez - Last Filed: 01/09/22 19:07> Objective - Vital Signs Vital signs: Vital Signs Temp 97.8 F 01/09/22 16:00 Pulse 72 01/09/22 17:19 Resp 18 01/09/22 16:00 BP 128/70 01/09/22 16:00 Pulse Ox 97 01/09/22 16:00 Intake & Output 01/09/22 01/09/22 01/10/22 06:59 18:59 06:59 Intake Total 780 Output Total 425 Balance 355 Weight 134.9 kg Intake: Oral 780 Output: Urine 425 Other: Voiding Method Urinal Urinal # Voids 0 ABP, PAP, CO, CI - Last Documented Arterial Blood Pressure 108/59 Pulmonary Artery Pressure 28/11 Cardiac Output 5 Cardiac Index 2.5 - Labs CBC & Chem 7: 01/09/22 07:34 01/09/22 07:34 Labs: Abnormal Lab Results - Last 24 Hours (Table) 01/08/22 01/09/22 01/09/22 Range/Units 21:17 06:03 07:34 RBC 3.37 L (4.30-5.90) m/uL Hgb 11.4 L (13.0-17.5) gm/dL Hct 33.1 L (39.0-53.0) % Sodium (137-145) mmol/L Glucose (74-99) mg/dL POC Glucose (mg/dL) 110 H 115 H (75-99) mg/dL 01/09/22 01/09/22 Range/Units 07:34 16:19 RBC (4.30-5.90) m/uL Hgb (13.0-17.5) gm/dL Hct (39.0-53.0) % Sodium 134 L (137-145) mmol/L Glucose 104 H (74-99) mg/dL POC Glucose (mg/dL) 118 H (75-99) mg/dL Assessment and Plan Plan: Is a joint evaluation that was done along with a nurse practitioner this evaluation was done and more than 20 minutes. The patient is postop day #4 following mitral valve repair. Doing well. No specific complaints. He developed atrial flutter with RVR and the patient will be started on amiodarone drip for cardiothoracic surgery. Based on that, his discharge was held. Hemodynamically stable at this point in time. He is respiratory status is stabl e. Chest x-ray showing some atelectatic changes as expected. No other issues for now. Using incentive spirometer.
[2022-01-09 16:20] LABS: Glucose,Whole Blood 118 mg/dL (75-99)
--- NOTE | 2022-01-09 18:03 | PN ---
PROGRESS NOTE This patient is status post replacement of the mitral valve. He is up on a regular floor, out of the ICU. Saturation is in the high 90s on room air. Breathing comfortably. Postoperative changes. Hemoglobin 11.4, sodium 134. Cardiovascular S1-S2. Lungs transmitted upper airway sounds. Hematology negative Homans. Psych fair mood and affect. ASSESSMENT: 1. Severe mitral valve regurgitation, status post repair. 2. Diabetes mellitus. 3. Hypertension. 4. 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 5. History of cellulitis. 6. Atrial fibrillation with rapid ventricular response, receiving amiodarone. Once he will be able to be discharged home. MMODL / IJN: [id number] /
[2022-01-09] MEDS ORDERED: HYDROcodone/APAP 5-325MG 1 EACH TAB PO STA (18:56)
[2022-01-09 20:34] LABS: Glucose,Whole Blood 101 mg/dL (75-99)
[2022-01-09] MEDS: SENNOSIDES-DOCUSATE SODIUM 1 EACH TAB PO SCH (20:56)
[2022-01-09] MEDS: METOPROLOL TARTRATE 25 MG TAB PO SCH (20:56)
[2022-01-09] MEDS ORDERED: MELATONIN 3 MG TABLET PO SCH (21:00)
[2022-01-10] MEDS ORDERED: DEXTROSE 5% IN WATER 100 ML with AMIODARONE 150 MG IV ONE (00:05)
[2022-01-10] MEDS: HEPARIN SODIUM,PORCINE/PF 5,000 UNIT/0.5 ML SYRINGE SQ SCH ×2 (00:08→08:23)
[2022-01-10] MEDS: INSULIN ASPART (NovoLOG) 100 UNIT/ML VIAL SQ SCH ×2 (06:23→11:49)
[2022-01-10 06:27] LABS: Glucose,Whole Blood 102 mg/dL (75-99)
[2022-01-10] MEDS: PANTOPRAZOLE 40 MG TABLET PO SCH (06:33)
[2022-01-10] MEDS: ACETAMINOPHEN TAB 325 MG TAB PO PRN (06:35)
--- NOTE | 2022-01-10 07:32 | XR ---
EXAMINATION TYPE: XR chest 1V portable DATE OF EXAM: 01/10/2022 COMPARISON: Chest x-ray 01/09/2022 HISTORY: Postop mitral valve replacement TECHNIQUE: Single frontal view of the chest is obtained. FINDINGS: Patient is post median sternotomy and mitral valve replacement. No evident pneumothorax. I nterstitium is increased. Cardiac mediastinal silhouette is within normal limits accounting for diffe rences in technique. There are overlying artifacts. Patchy bibasilar increased attenuation is present . IMPRESSION: Expiratory rotated exam, difficult to exclude a component of interstitial edema, basilar atelectasis, pneumonia not excluded
[2022-01-10 07:45] LABS: HCT 34.5 % (39.0-53.0); HGB 11.6 gm/dL (13.0-17.5); MCH 33.3 pg (25.0-35.0); MCHC 33.6 g/dL (31.0-37.0); MCV 99.1 fL (80.0-100.0); Mean Platelet Volume 7.5; Platelet Count 238 k/uL (150-450); RBC 3.48 m/uL (4.30-5.90); RDW 13.4 % (11.5-15.5)
[2022-01-10 07:46] LABS: African American GFR (CKD) >90 (>60 ml/min/1.73 sqM); Anion Gap 8 mmol/L; Blood Urea Nitrogen 16 mg/dL (9-20); Calcium 8.4 mg/dL (8.4-10.2); Carbon Dioxide 23 mmol/L (22-30); Chloride 103 mmol/L (98-107); Glucose 97 mg/dL (74-99); Non-African American GFR(CKD) >90 (>60 ml/min/1.73 sqM); Potassium 4.3 mmol/L (3.5-5.1); Sodium 134 mmol/L (137-145)
[2022-01-10] MEDS: ASCORBIC ACID 500 MG TAB PO SCH (08:23)
[2022-01-10] MEDS: AMIODARONE 200 MG TAB PO SCH (08:23)
[2022-01-10] MEDS: MULTIVITAMINS, THERA 1 EACH TAB PO SCH (08:23)
[2022-01-10] MEDS: ATORVASTATIN 40 MG TAB PO SCH (08:23)
[2022-01-10] MEDS: METOPROLOL TARTRATE 25 MG TAB PO SCH (08:24)
[2022-01-10 08:31] VITALS: TEMP 98.2
[2022-01-10] MEDS: IPRATROPIUM-ALBUTEROL 3 ML NEB INHALATION SCH ×2 (08:50→11:48)
[2022-01-10] MEDS ORDERED: FUROSEMIDE 40 MG TAB PO SCH (09:00)
[2022-01-10] MEDS ORDERED: APIXABAN 5 MG TAB PO SCH (09:00)
[2022-01-10] MEDS ORDERED: ASPIRIN 81 MG PO SCH (09:00)
[2022-01-10 11:34] LABS: Glucose,Whole Blood 90 mg/dL (75-99)
[2022-01-10 11:41] VITALS: BP 124/79; PULSE 66
--- NOTE | 2022-01-10 13:25 | P.PN ---
Subjective Progress Note Date: 01/10/22 On today's evaluation of 01/10/2022, the patient is postop day #5. She is currently in well-controlled atrial fibrillation. His rate is controlled and the patient is also mental cognition with Eliquis. 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 The patient is doing well. The patient is hemodynamically stable. Using incentive spirometer and is pulling approximately 3000. Surgical site is dry clean and intact. Follow-up chest x-ray from this morning shows no evidence of any pneumo thorax. There is atelectatic changes small effusion the lung bases bilaterally. The patient is afebrile. The patient is hemodynamically stable at this point in time. Pulse ox down 97% on room air oxygen. He is on metoprolol for rate control 25 mg by mouth twice a day. He is also on amiodarone 200 mg by mouth daily and long-term antibiotic ventilation with Eliquis. Objective - Vital Signs Vital signs: Vital Signs Temp 98.2 F 01/10/22 08:29 Pulse 66 01/10/22 11:40 Resp 18 01/10/22 11:40 BP 124/79 01/10/22 11:40 Pulse Ox 97 01/10/22 11:40 Intake & Output 01/09/22 01/10/22 01/10/22 18:59 06:59 18:59 Intake Total 780 10 240 Output Total 425 2200 Balance 355 -2190 240 Weight 133.2 kg Intake: IV 10 Invasive Line 1 10 Oral 780 240 Output: Urine 425 2200 Other: Voiding Method Urinal Urinal Urinal # Voids 2 ABP, PAP, CO, CI - Last Documented Arterial Blood Pressure 108/59 Pulmonary Artery Pressure 28/11 Cardiac Output 5 Cardiac Index 2.5 - Exam CONSTITUTIONAL: Sitting up to the bedside chair on the third floor cardiac stepdown unit, appears comfortable, cooperative, no apparent acute distress. HEENT: Neck is supple, no JVD, no lymphadenopathy. RESPIRATORY: Lungs sounds essentially clear throughout, diminished to his bilateral bases. Respirations are symmetrical and nonlabored. Currently on room air with oxygen saturations 95%. Able to achieve 3000 mL on his incentive spirometry. Strong cough. CARDIOVASCULAR: Regular rhythm and rate. S1 and S2 present, negative for S3, gallop or murmur. Sternum is stable. Palpable peripheral pulses bilaterally, +1 edema to his bilateral lower extremities. No calf pain or tenderness noted. Heart hugger in place with patient demonstrating appropriate use. Knee-high JEREMY hose and sequential compression devices in place to his bilateral lower extremities. GASTROINTESTINAL: Abdomen soft, nontender, nondistended. Active bowel sounds present 4 quadrants. Tolerating diet. Passing flatus. No guarding or rigidity. Bowel movement yesterday 01/08/2022. GENITOURINARY: Continues to void. INTEGUMENTARY: Skin is warm and dry with no evidence of clubbing or cyanosis. Midline sternal incision clean dry and well approximated, covered with dry intact dressing. NEUROLOGIC: Cranial nerves II through XII intact. No focal deficits. MUSKULOSKELETAL: Able to move all extremities, strength equal bilaterally. PSYCHIATRIC: Alert and oriented to person place and time, appropriate affect, intact judgment and insight. - Labs CBC & Chem 7: 01/10/22 07:13 01/10/22 07:13 Labs: Abnormal Lab Results - Last 24 Hours (Table) 01/09/22 01/09/22 01/10/22 Range/Units 16:19 20:20 06:11 RBC (4.30-5.90) m/uL Hgb (13.0-17.5) gm/dL Hct (39.0-53.0) % Sodium (137-145) mmol/L POC Glucose (mg/dL) 118 H 101 H 102 H (75-99) mg/dL 01/10/22 01/10/22 Range/Units 07:13 07:13 RBC 3.48 L (4.30-5.90) m/uL Hgb 11.6 L (13.0-17.5) gm/dL Hct 34.5 L (39.0-53.0) % Sodium 134 L (137-145) mmol/L POC Glucose (mg/dL) (75-99) mg/dL Assessment and Plan Plan: #1. Severe mitral valve regurgitation, status post complex mitral valve repair, postoperative day #5 #2. Postoperative atelectasis, expected, currently oxygen well on room air and the patient has no significant hypoxemia or respiratory distress. #3. History of benign essential hypertension #4. 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 History of cellulitis #6. Postoperative atrial flutter/fibrillation with RVR on 01/09/2022, and patient is receiving amiodarone per protocol per CT surgery, and the patient is currently on metoprolol and long-term medical condition with Eliquis. #7. Lifetime nonsmoker Plan: Overall pulmonary status is stable Oxygenation is stable Hemodynamically stable No issues with pain Ambulating Continue metoprolol and amiodarone in addition to Eliquis for lungs symmetrical diminished regarding his chronic atrial fibrillation Follow-up chest x-ray from today was noted Possible discharge today.
--- NOTE | 2022-01-10 15:46 | PN ---
PROGRESS NOTE Mr. Lopez went into atrial fibrillation. He is anticoagulated with Eliquis. He is status post mitral valve repair, but he is in atrial fibrillation. Rate is controlled. Comfortable. Feels well. Ambulating without symptoms. Vitals are stable. JVD is not evident. S1, S2 with irregular rhythm noted. Short systolic murmur noted. Lungs reveal improved air entry. Abdomen is soft, nontender. Lower extremities reveal diminished pulses. Central nervous system is normal. Patient can be discharged today on current medical regimen and see Dr. Donovan in two weeks. He is anticoagulated and on amiodarone. MMODL / IJN: [id number] /
== END 2022-01-10 13:07 | disposition home health service (06) | DRG 219 ==
LOC: 2ORMAIN 05:39 → 2SICU 12:55 → 3SCARD 01-08 19:20
PROVIDERS: ADMIT Thoracic Surgery (Cardiothoracic Vascular Surgery); ATTEND Thoracic Surgery (Cardiothoracic Vascular Surgery)
PROC: 02BG0ZZ Excision of Mitral Valve, Open Approach (ICD-10-PCS; 2022-01-05)
PROC: 02L70ZK Occlusion of Left Atrial Appendage, Open Approach (ICD-10-PCS; 2022-01-05)
PROC: B246ZZ4 Ultrasonography of Right and Left Heart, Transesophageal (ICD-10-PCS; 2022-01-05)
PROC: 0BH17EZ Insertion of Endotracheal Airway into Trachea, Via Natural or Artificial Opening (ICD-10-PCS; 2022-01-05)
PROC: 5A1945Z Respiratory Ventilation, 24-96 Consecutive Hours (ICD-10-PCS; 2022-01-05)
PROC: 03HY32Z Insertion of Monitoring Device into Upper Artery, Percutaneous Approach (ICD-10-PCS; 2022-01-05)
PROC: 05HM33Z Insertion of Infusion Device into Right Internal Jugular Vein, Percutaneous Approach (ICD-10-PCS; 2022-01-05)
PROC: 02UG0JZ Supplement Mitral Valve with Synthetic Substitute, Open Approach (ICD-10-PCS; principal; 2022-01-05 08:00)
DX: I08.1 Rheumatic disorders of both mitral and tricuspid valves (principal); I51.1 Rupture of chordae tendineae, not elsewhere classified; D62 Acute posthemorrhagic anemia; J98.11 Atelectasis; I48.92 Unspecified atrial flutter; I48.0 Paroxysmal atrial fibrillation; E11.9 Type 2 diabetes mellitus without complications; I10 Essential (primary) hypertension; N48.89 Other specified disorders of penis; I25.10 Atherosclerotic heart disease of native coronary artery without angina pectoris; I27.20 Pulmonary hypertension, unspecified; Z95.1 Presence of aortocoronary bypass graft; R01.1 Cardiac murmur, unspecified; Z79.01 Long term (current) use of anticoagulants; Z79.2 Long term (current) use of antibiotics; Z79.82 Long term (current) use of aspirin; Z79.899 Other long term (current) drug therapy; Z82.49 Family history of ischemic heart disease and other diseases of the circulatory system; Z86.79 Personal history of other diseases of the circulatory system; Z87.01 Personal history of pneumonia (recurrent); Z88.1 Allergy status to other antibiotic agents; I49.8 Other specified cardiac arrhythmias
CPT/HCPCS: 71045; 71046; 80048; 80053; 80061; 82330; 82805; 83735; 84439; 84443; 85025; 85027; 85520; 85610; 85730; 86850; 86891; 86900; 86901; 86920; 87635; 88305; 94002; 94640; 94760

== ENCOUNTER 2022-01-22 07:20 | Observation (INO) | payer BC ==
--- NOTE | 2022-01-22 08:01 | ED ---
General Adult HPI - General Chief complaint: Arrhythmia/Palpitations Stated complaint: Arrhythmia Time Seen by Provider: 01/22/22 07:28 Source: patient, RN notes reviewed, old records reviewed Mode of arrival: wheelchair - History of Present Illness Initial comments: 61-year-old male presenting for evaluation of palpitations and lightheadedness. Patient is status post mitral valve repair approximately 20 days ago. Patient had been doing well postoperatively. This morning he felt irregular heartbeat and racing heart sensation. This was associated with some nausea. No pain. No dyspnea. He states he does feel somewhat better at the time my evaluation. He had a home EKG machine that that indicated abnormal rhythm. He states that while in the hospital he was in atrial fibrillation but had return to sinus rhythm. He is currently on metoprolol 25 mg twice a day and amiodarone. He is also on Eliquis. He states that he has some peripheral edema which is improving after the surgery. - Related Data Home Medications Medication Instructions Recorded Confirmed Ascorbic Acid [Vitamin C] 1,000 mg PO BID 11/24/21 01/22/22 Multivit-Min/FA/Lycopen/Lutein 1 each PO DAILY 11/24/21 01/22/22 [Centrum Silver Men Tablet] Amiodarone [Cordarone] See Taper PO DIRECTED 01/22/22 01/22/22 Omeprazole [PriLOSEC] 40 mg PO DAILY 01/22/22 01/22/22 Previous Rx's Medication Instructions Recorded Acetaminophen Tab [Tylenol] 650 mg PO Q4HR PRN tab 01/09/22 Atorvastatin [Lipitor] 40 mg PO DAILY #30 tab 01/09/22 Apixaban [Eliquis] 5 mg PO BID #60 tab 01/10/22 Aspirin 81 mg PO DAILY 01/10/22 Furosemide [Lasix] 40 mg PO DAILY #14 tab 01/10/22 Metoprolol Tartrate [Lopressor] 25 mg PO BID #60 tab 01/10/22 Allergies Allergy/AdvReac Type Severity Reaction Status Date / Time vancomycin Allergy Unknown RED-MAN Verified 01/22/22 08:19 SYNDROME Review of Systems ROS Statement: Those systems with pertinent positive or pertinent negative responses have been documented in the HPI. ROS Other: All systems not noted in ROS Statement are negative. 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, remote hx of pna, venous insufficiency with cellulitis History of Any Multi-Drug Resistant Organisms: None Reported Past Surgical History: Adenoidectomy, Heart Catheterization, Tonsillectomy Additional Past Surgical History / Comment(s): RIGHT BICEP TENDON REPAIR, HEART CATH x2, mitral valve repair 01/05/22 Past Anesthesia/Blood Transfusion Reactions: No Reported Reaction, Motion Sickness Additional Past Anesthesia/Blood Transfusion Reaction / Comment(s): no hx blood transfusion Past Psychological History: No Psychological Hx Reported Smoking Status: Never smoker Past Alcohol Use History: Occasional Past Drug Use History: None Reported - Past Family History Mother Family Medical History: Congestive Heart Failure (CHF), Renal Disease Additional Family Medical History / Comment(s): heart valve repair Father Family Medical History: No Reported History Additional Family Medical History / Comment(s): heart valve repair, at old age Sister(s) Family Medical History: AFIB Brother(s) Additional Family Medical History / Comment(s): heart valve repair General Exam General appearance: alert, in no apparent distress Head exam: Present: atraumatic, normocephalic Eye exam: Present: normal appearance, PERRL ENT exam: Present: normal exam Neck exam: Present: normal inspection. Absent: tenderness, meningismus Respiratory exam: Present: wheezes, other (Midline sternotomy incision is well- healing.). Absent: respiratory distress Cardiovascular Exam: Present: tachycardia, irregular rhythm GI/Abdominal exam: Present: soft. Absent: distended, tenderness, guarding Extremities exam: Present: normal capillary refill, pedal edema Neurological exam: Present: alert, oriented X3, CN II-XII intact. 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 No recommendations at this time Reevaluation #2: 01/22/22 09:[address] Douglas with cardiology who does recommend Cardizem and observation. Possible cardioversion. Pt will be kept NPO. EKG Findings - EKG Comments: EKG Findings:: EKG: Atrial fibrillation with rapid ventricular response, rate of 116, QRS duration 101, QTC [address] segment elevation. Medical Decision Making - Medical Decision Making Found to be in atrial fibrillation with RVR. 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 He has had some intermittent episodes of atrial fibrillation since his heart surgery. He is anticoagulated currently on metoprolol. He has a mild leukocytosis, mild anemia. Normal electrolytes. Chest x-ray shows small left sided effusion with no significant pulmonary edema. I did discuss case with cardiology, Dr. Duncan. Patient will be admitted to Dr. Bhatia for rate control. - Lab Data Result diagrams: 01/22/22 07:56 01/22/22 08:47 Lab Results 01/22/22 01/22/22 01/22/22 Range/Units 07:56 07:56 08:47 WBC 11.7 H (3.8-10.6) k/uL RBC 4.04 L (4.30-5.90) m/uL Hgb 13.0 (13.0-17.5) gm/dL Hct 39.2 (39.0-53.0) % MCV 97.0 (80.0-100.0) fL MCH 32.3 (25.0-35.0) pg MCHC 33.3 (31.0-37.0) g/dL RDW 12.9 (11.5-15.5) % Plt Count 507 H D (150-450) k/uL MPV 7.1 Neutrophils % 76 % Lymphocytes % 11 % Monocytes % 10 % Eosinophils % 1 % Basophils % 1 % Neutrophils # 8.9 H (1.3-7.7) k/uL Lymphocytes # 1.3 (1.0-4.8) k/uL Monocytes # 1.2 H (0-1.0) k/uL Eosinophils # 0.1 (0-0.7) k/uL Basophils # 0.1 (0-0.2) k/uL PT 11.4 (9.0-12.0) sec INR 1.1 (<1.2) APTT 27.2 (22.0-30.0) sec Sodium 137 (137-145) mmol/L Potassium 4.4 (3.5-5.1) mmol/L Chloride 107 (98-107) mmol/L Carbon Dioxide 25 (22-30) mmol/L Anion Gap 5 mmol/L BUN 15 (9-20) mg/dL Creatinine 0.96 (0.66-1.25) mg/dL Est GFR (CKD-EPI)AfAm >90 (>60 ml/min/1.73 sqM) Est GFR (CKD-EPI)NonAf 86 (>60 ml/min/1.73 sqM) Glucose 97 (74-99) mg/dL Calcium 8.8 (8.4-10.2) mg/dL Magnesium 2.0 (1.6-2.3) mg/dL Total Bilirubin 0.8 (0.2-1.3) mg/dL AST 19 (17-59) U/L ALT 15 (4-49) U/L Alkaline Phosphatase 71 (38-126) U/L Total Protein 6.7 (6.3-8.2) g/dL Albumin 3.6 (3.5-5.0) g/dL Disposition Clinical Impression: Atrial fibrillation, Atrial fibrillation with RVR Disposition: ADMITTED IP TO THIS [facility] Condition: Stable Is patient prescribed a controlled substance at d/c from ED?: No Referrals: Brendon Bhatia MD [Primary Care Provider] - 1-2 days Decision to Admit Reason: Admit from EC Decision Date: 01/22/22 Decision Time: 09:21
[2022-01-22 08:18] LABS: Basophils # (A) 0.1 k/uL (0-0.2); Basophils % (A) 1 %; Eosinophils # (A) 0.1 k/uL (0-0.7); Eosinophils % (A) 1 %; HCT 39.2 % (39.0-53.0); Lymphocytes # (A) 1.3 k/uL (1.0-4.8); Lymphocytes % (A) 11 %; MCH 32.3 pg (25.0-35.0); MCHC 33.3 g/dL (31.0-37.0); Mean Platelet Volume 7.1; Monocytes # (A) 1.2 k/uL (0-1.0); Monocytes % (A) 10 %; Neutrophils # (A) 8.9 k/uL (1.3-7.7); Neutrophils % (A) 76 %; RBC 4.04 m/uL (4.30-5.90); RDW 12.9 % (11.5-15.5); WBC 11.7 k/uL (3.8-10.6)
--- NOTE | 2022-01-22 08:25 | XR ---
EXAMINATION TYPE: XR chest 2V DATE OF EXAM: 01/22/2022 COMPARISON: Chest x-ray 01/10/2022 HISTORY: Dysrhythmia TECHNIQUE: Frontal and lateral views of the chest are obtained. FINDINGS: Blunting of the left costophrenic angle may be due to prior surgery, pleural reaction rath er than small effusion, there is likely associated atelectasis. There is no evident pneumothorax. Pat ient is post median sternotomy and mitral valve replacement. Cardiac mediastinal silhouette is not en larged. IMPRESSION: Left lower lobe atelectasis and associated effusion versus pleural reaction. Postop veronica ge.
[2022-01-22 08:26] LABS: Platelet Count 507 k/uL (150-450)
[2022-01-22 09:00] LABS: INR 1.1 (<1.2); Partial Thromboplastin Time 27.2 sec (22.0-30.0); Prothrombin Time 11.4 sec (9.0-12.0)
[2022-01-22 09:13] LABS: ALT 15 U/L (4-49); AST 19 U/L (17-59); African American GFR (CKD) >90 (>60 ml/min/1.73 sqM); Albumin 3.6 g/dL (3.5-5.0); Alkaline Phosphatase 71 U/L (38-126); Anion Gap 5 mmol/L; Blood Urea Nitrogen 15 mg/dL (9-20); Calcium 8.8 mg/dL (8.4-10.2); Carbon Dioxide 25 mmol/L (22-30); Chloride 107 mmol/L (98-107); Glucose 97 mg/dL (74-99); Non-African American GFR(CKD) 86 (>60 ml/min/1.73 sqM); Potassium 4.4 mmol/L (3.5-5.1); Sodium 137 mmol/L (137-145); Total Bilirubin 0.8 mg/dL (0.2-1.3); Total Protein 6.7 g/dL (6.3-8.2)
[2022-01-22] MEDS ORDERED: DILTIAZEM DRIP BOLUS FROM BAG 1 MG SOLN IV ONE (09:17)
[2022-01-22] MEDS ORDERED: NALOXONE 0.4 MG/ML 1 ML VIAL IV PRN (09:18)
[2022-01-22] MEDS: DILTIAZEM 125 MG in SODIUM CHLORIDE 0.9% 100 ML IV SCH (10:24)
[2022-01-22] MEDS: SODIUM CHLORIDE 0.9% 1,000 ML IV SCH (10:25)
[2022-01-22] MEDS: ATORVASTATIN 40 MG TAB PO SCH (11:52)
[2022-01-22] MEDS: METOPROLOL TARTRATE 25 MG TAB PO SCH ×2 (11:52→20:48)
[2022-01-22] MEDS: APIXABAN 5 MG TAB PO SCH ×2 (11:52→20:48)
[2022-01-22] MEDS: ASPIRIN 81 MG PO SCH (11:52)
[2022-01-22] MEDS: FUROSEMIDE 40 MG TAB PO SCH (11:52)
[2022-01-22] MEDS ORDERED: ACETAMINOPHEN TAB 325 MG TAB PO PRN (13:04)
--- NOTE | 2022-01-22 13:38 | P.CRDCN ---
History of Present Illness Consult date: 01/22/22 History of present illness: HISTORY OF PRESENT ILLNESS: This is a 61-year-old male with a past medical history significant for hypertension and recent mitral valve repair. Patient follows in the office with Dr. Donovan. We have been asked to see the patient in consultation for afib with RVR. Patient examined at the bedside. Patient states he woke up this morning and has having palpitations. He reports feeling short of breath, dizzy, and overall unwell this morning. He checked his heart rate at home and noticed it was going up to 150. Patient came to the ER and was found to be in afib with RVR. Patient was started on IV Cardizem. He remains in afib with controlled ventricular rates at this time. * EKG reveals A. fib with RVR * Chest xray left lower lobe atelectasis and associated effusion versus pleural reaction. * Laboratory data: WBC 11.7. Hemoglobin 13.0. Platelet count 507. Sodium 137. Potassium 4.4. BUN 15. Creatinine 0.96. Magnesium 2.0. * Current home cardiac medications include metoprolol titrate 25 mg twice a day, Lasix 40 mg daily, atorvastatin 40 mg daily, aspirin 81 mg daily, Elocon as 5 mg twice a day, and amiodarone (unknown dose) * Patient underwent cardiac catheterization in December 2021 revealing normal coronary arteries, 4+ mitral regurgitation, and mild to moderate pulmonary hypertension REVIEW OF SYSTEMS: At the time of my exam: CONSTITUTIONAL: Denies fever or chills. HEENT: Denies blurred vision, vision changes, or eye pain. Denies hemoptysis CARDIOVASCULAR: Denies chest pain. Denies orthopnea. Denies PND. Denies palpitations RESPIRATORY: Denies shortness of breath. GASTROINTESTINAL: Denies abdominal pain. Denies nausea or vomiting. HEMATOLOGIC: Denies bleeding disorders. GENITOURINARY: Denies any blood in urine. SKIN: Denies pruitis. Denies rash. PHYSICAL EXAM: VITAL SIGNS: Reviewed. GENERAL: Well-developed in no acute distress. HEENT: Head is normocephalic. Pupils are equal, round. Sclerae anicteric. Mucous membranes of the mouth are moist. Neck supple. No JVD or thyromegaly LUNGS: Respirations even and unlabored. Lungs essentially clear to auscultation bilaterally. HEART: Irregular rate and rhythm. S1 and S2 heard. + systolic murmur ABDOMEN: Soft. Nondistended. Nontender. EXTREMITIES: Normal range of motion. No clubbing or cyanosis. Peripheral pulses intact. No lower extremity edema NEUROLOGIC: Awake and alert. Oriented x 3. ASSESSMENT: Paroxysmal atrial fibrillation with RVR Recent mitral valve repair, 01/05/22 Hypertension Hyperlipidemia GERD PLAN: Obtain 2-D echo to assess cardiac structure and function Resume home cardiac medications Continue telemetry monitoring Continue IV Cardizem Consult CTS Further recommendations pending patient course Nurse practitioner note has been reviewed by physician. Signing provider agrees with the documented findings, assessment, and plan of care. 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, remote hx of pna, venous insufficiency with cellulitis History of Any Multi-Drug Resistant Organisms: None Reported Past Surgical History: Adenoidectomy, Heart Catheterization, Tonsillectomy Additional Past Surgical History / Comment(s): RIGHT BICEP TENDON REPAIR, HEART CATH x2, mitral valve repair 01/05/22 Past Anesthesia/Blood Transfusion Reactions: No Reported Reaction, Motion Sickness Additional Past Anesthesia/Blood Transfusion Reaction / Comment(s): no hx blood transfusion Past Psychological History: No Psychological Hx Reported Smoking Status: Never smoker Past Alcohol Use History: Occasional Past Drug Use History: None Reported - Past Family History Mother Family Medical History: Congestive Heart Failure (CHF), Renal Disease Additional Family Medical History / Comment(s): heart valve repair Father Family Medical History: No Reported History Additional Family Medical History / Comment(s): heart valve repair, at old age Sister(s) Family Medical History: AFIB Brother(s) Additional Family Medical History / Comment(s): heart valve repair Medications and Allergies Home Medications Medication Instructions Recorded Confirmed Type Ascorbic Acid [Vitamin C] 1,000 mg PO BID 11/24/21 01/22/22 History Multivit-Min/FA/Lycopen/Lutein 1 each PO DAILY 11/24/21 01/22/22 History [Centrum Silver Men Tablet] Acetaminophen Tab [Tylenol] 650 mg PO Q4HR PRN tab 01/09/22 01/22/22 Rx Atorvastatin [Lipitor] 40 mg PO DAILY #30 tab 01/09/22 01/22/22 Rx Apixaban [Eliquis] 5 mg PO BID #60 tab 01/10/22 01/22/22 Rx Aspirin 81 mg PO DAILY 01/10/22 01/22/22 Rx Furosemide [Lasix] 40 mg PO DAILY #14 tab 01/10/22 01/22/22 Rx Metoprolol Tartrate [Lopressor] 25 mg PO BID #60 tab 01/10/22 01/22/22 Rx Amiodarone [Cordarone] See Taper PO DIRECTED 01/22/22 01/22/22 History Omeprazole [PriLOSEC] 40 mg PO DAILY 01/22/22 01/22/22 History Allergies Allergy/AdvReac Type Severity Reaction Status Date / Time vancomycin Allergy Unknown RED-MAN Verified 01/22/22 08:19 SYNDROME Physical Exam Vitals: Vital Signs Temp Pulse Pulse Resp BP Pulse Ox 01/22/22 10:14 94 18 109/81 96 01/22/22 08:44 108 H 18 100/74 96 01/22/22 07:56 128 H 128 H 18 91/66 97 01/22/22 07:22 99.3 F 50 L 18 119/74 97 Intake and Output 01/21/22 01/22/22 01/22/22 22:59 06:59 14:59 Other: Weight 127.006 kg Results 01/22/22 07:56 01/22/22 08:47 Cardiac Enzymes 01/22/22 Range/Units 08:47 AST 19 (17-59) U/L Coagulation 01/22/22 Range/Units 07:56 PT 11.4 (9.0-12.0) sec APTT 27.2 (22.0-30.0) sec CBC 01/22/22 Range/Units 07:56 WBC 11.7 H (3.8-10.6) k/uL RBC 4.04 L (4.30-5.90) m/uL Hgb 13.0 (13.0-17.5) gm/dL Hct 39.2 (39.0-53.0) % Plt Count 507 H D (150-450) k/uL Comprehensive Metabolic Panel 01/22/22 Range/Units 08:47 Sodium 137 (137-145) mmol/L Potassium 4.4 (3.5-5.1) mmol/L Chloride 107 (98-107) mmol/L Carbon Dioxide 25 (22-30) mmol/L BUN 15 (9-20) mg/dL Creatinine 0.96 (0.66-1.25) mg/dL Glucose 97 (74-99) mg/dL Calcium 8.8 (8.4-10.2) mg/dL AST 19 (17-59) U/L ALT 15 (4-49) U/L Alkaline Phosphatase 71 (38-126) U/L Total Protein 6.7 (6.3-8.2) g/dL Albumin 3.6 (3.5-5.0) g/dL Current Medications Generic Name Dose Route Start Last Admin Trade Name Freq PRN Reason Stop Dose Admin Amiodarone HCl 200 mg 01/22/22 21:00 Amiodarone 200 Mg Tab PO BID MERVAT Diltiazem HCl 125 mg/ Sodium 125 mls @ 5 mls/hr 01/22/22 09:30 01/22/22 10:24 Chloride IV 5 mg/hr .Q24H MERVAT 5 mls/hr Administration 5 MG/HR Sodium Chloride 1,000 mls @ 50 mls/hr 01/22/22 09:30 01/22/22 10:25 Saline 0.9% IV 50 mls/hr .Q20H MERVAT Administration Naloxone HCl 0.2 mg 01/22/22 09:18 Naloxone 0.4 Mg/Ml 1 Ml Vial IV Q2M PRN Opioid Reversal Intake and Output 01/21/22 01/22/22 01/22/22 22:59 06:59 14:59 Other: Weight 127.006 kg Patient Weight 01/23/22 06:59 Weight 127.006 kg 01/22/22 07:56 01/22/22 08:47
--- NOTE | 2022-01-22 14:28 | P.GSCN ---
History of Present Illness Consult date: 01/22/22 Reason for Consult: Paroxysmal atrial fibrillation, recent mitral valve repair Requesting physician: Kay Lee History of present illness: This is a 61-year-old active gentleman who follows on an outpatient basis with Dr. Donovan for cardiology and Dr. Brendon Bhatia for primary care. He has a previous medical history of mitral regurgitation status post complex mitral valve repair, hypertension, remote history of ventricular tachycardia after episode of red man syndrome from vancomycin, never smoker, who remains unvaccinated against Covid. He was discharged to home with home care from [facility] on 01/10/2022 after mitral valve surgery. He did experience paroxysmal atrial fibrillation after his mitral valve surgery and was discharged to home on oral amiodarone and metoprolol as well as Eliquis for anticoagulation. He was recovering uneventfully at home and had followed up with Dr. Donovan a couple of days ago, was in normal sinus rhythm at that time. Early this morning he was woken up and felt palpitations along with shortness of breath. He used a home [employer] device and noticed his heart rate was irregular and ranging from 50-150, so he reported to [facility] emergency room for evaluation and treatment. He was found to be in atrial fibrillation. Cardiology was consulted, the patient was placed on IV Cardizem with plans for nothing to eat or drink after midnight in anticipation of cardioversion tomorrow morning. In addition his oral amiodarone was increased by Dr. Douglas. Consultation was placed to Dr. Hannah as this patient is known to our service. Review of Systems The of systems was completed and was negative except as noted - Cardiovascular Cardiovascular Comment(s): Patient complained of palpitations, shortness of breath this morning, however on current exam denies any palpitations, shortness of breath, chest pain or any other symptomatology Reports as per HPI, Reports palpitations, Reports shortness of breath 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, remote hx of pna, venous insufficiency with cellulitis History of Any Multi-Drug Resistant Organisms: None Reported Past Surgical History: Adenoidectomy, Heart Catheterization, Tonsillectomy Additional Past Surgical History / Comment(s): RIGHT BICEP TENDON REPAIR, HEART CATH x2, mitral valve repair 01/05/22 Past Anesthesia/Blood Transfusion Reactions: No Reported Reaction, Motion Sickness Additional Past Anesthesia/Blood Transfusion Reaction / Comm: no hx blood transfusion Past Psychological History: No Psychological Hx Reported Smoking Status: Never smoker Past Alcohol Use History: Occasional Past Drug Use History: None Reported - Past Family History Mother Family Medical History: Congestive Heart Failure (CHF), Renal Disease Additional Family Medical History / Comment(s): heart valve repair Father Family Medical History: No Reported History Additional Family Medical History / Comment(s): heart valve repair, at old age Sister(s) Family Medical History: AFIB Brother(s) Additional Family Medical History / Comment(s): heart valve repair Medications and Allergies Home Medications Medication Instructions Recorded Confirmed Type Ascorbic Acid [Vitamin C] 1,000 mg PO BID 11/24/21 01/22/22 History Multivit-Min/FA/Lycopen/Lutein 1 each PO DAILY 11/24/21 01/22/22 History [Centrum Silver Men Tablet] Acetaminophen Tab [Tylenol] 650 mg PO Q4HR PRN tab 01/09/22 01/22/22 Rx Atorvastatin [Lipitor] 40 mg PO DAILY #30 tab 01/09/22 01/22/22 Rx Apixaban [Eliquis] 5 mg PO BID #60 tab 01/10/22 01/22/22 Rx Aspirin 81 mg PO DAILY 01/10/22 01/22/22 Rx Furosemide [Lasix] 40 mg PO DAILY #14 tab 01/10/22 01/22/22 Rx Metoprolol Tartrate [Lopressor] 25 mg PO BID #60 tab 01/10/22 01/22/22 Rx Amiodarone [Cordarone] See Taper PO DIRECTED 01/22/22 01/22/22 History Omeprazole [PriLOSEC] 40 mg PO DAILY 01/22/22 01/22/22 History Allergies Allergy/AdvReac Type Severity Reaction Status Date / Time vancomycin Allergy Unknown RED-MAN Verified 01/22/22 08:19 SYNDROME Surgical - Exam Vital Signs Temp Pulse Resp BP Pulse Ox 99.3 F 50 L 18 119/74 97 01/22/22 07:22 01/22/22 07:22 01/22/22 07:22 01/22/22 07:22 01/22/22 07:22 CONSTITUTIONAL: Awake and alert, appears comfortable, cooperative, well- developed, well-nourished, no pain, no acute distress EYES: Pupils equal, round, reactive to light, normal ocular movement ENT: Moist mucous membranes without oral lesions present NECK: No masses, no bruits, trachea midline RESPIRATORY: Lungs sounds clear to auscultation bilaterally. Respirations even, nonlabored. Currently on room air with oxygen saturation 98%. Strong cough. CARDIOVASCULAR: S1, S2 present. Irregular rate and rhythm, controlled atrial fibrillation on telemetry. Palpable peripheral pulses bilaterally. Trace bilateral lower extremity edema present. No calf pain or tenderness noted. GASTROINTESTINAL: Abdomen soft, nontender, nondistended without masses or organomegaly noted. There is no rebound or guarding present. Active bowel sounds present 4 quadrants. GENITOURINARY: Deferred INTEGUMENTARY: Skin is warm and dry with evidence of good perfusion. NEUROLOGIC: Cranial nerves II through XII intact, normal coordination, no obvious motor or sensory deficits, speech is normal MUSKULOSKELETAL: Able to move all extremities, strength equal bilaterally, normal posture PSYCHIATRIC: Alert and oriented to person place and time, appropriate affect, intact judgment and insight Results - Labs 01/22/22 07:56 01/22/22 08:47 Abnormal Lab Results - Last 24 Hours (Table) 01/22/22 Range/Units 07:56 WBC 11.7 H (3.8-10.6) k/uL RBC 4.04 L (4.30-5.90) m/uL Plt Count 507 H D (150-450) k/uL Neutrophils # 8.9 H (1.3-7.7) k/uL Monocytes # 1.2 H (0-1.0) k/uL Diabetes panel 01/22/22 Range/Units 08:47 Sodium 137 (137-145) mmol/L Potassium 4.4 (3.5-5.1) mmol/L Chloride 107 (98-107) mmol/L Carbon Dioxide 25 (22-30) mmol/L BUN 15 (9-20) mg/dL Creatinine 0.96 (0.66-1.25) mg/dL Glucose 97 (74-99) mg/dL Calcium 8.8 (8.4-10.2) mg/dL AST 19 (17-59) U/L ALT 15 (4-49) U/L Alkaline Phosphatase 71 (38-126) U/L Total Protein 6.7 (6.3-8.2) g/dL Albumin 3.6 (3.5-5.0) g/dL Calcium panel 01/22/22 Range/Units 08:47 Calcium 8.8 (8.4-10.2) mg/dL Albumin 3.6 (3.5-5.0) g/dL Pituitary panel 01/22/22 Range/Units 08:47 Sodium 137 (137-145) mmol/L Potassium 4.4 (3.5-5.1) mmol/L Chloride 107 (98-107) mmol/L Carbon Dioxide 25 (22-30) mmol/L BUN 15 (9-20) mg/dL Creatinine 0.96 (0.66-1.25) mg/dL Glucose 97 (74-99) mg/dL Calcium 8.8 (8.4-10.2) mg/dL Adrenal panel 01/22/22 Range/Units 08:47 Sodium 137 (137-145) mmol/L Potassium 4.4 (3.5-5.1) mmol/L Chloride 107 (98-107) mmol/L Carbon Dioxide 25 (22-30) mmol/L BUN 15 (9-20) mg/dL Creatinine 0.96 (0.66-1.25) mg/dL Glucose 97 (74-99) mg/dL Calcium 8.8 (8.4-10.2) mg/dL Total Bilirubin 0.8 (0.2-1.3) mg/dL AST 19 (17-59) U/L ALT 15 (4-49) U/L Alkaline Phosphatase 71 (38-126) U/L Total Protein 6.7 (6.3-8.2) g/dL Albumin 3.6 (3.5-5.0) g/dL - Imaging Chest x-ray: report reviewed, image reviewed EKG: image reviewed Assessment and Plan Assessment: 1. Paroxysmal atrial fibrillation, remains on Lopressor, amiodarone, Eliquis for anticoagulation 2. History of mitral regurgitation status post complex mitral valve repair 01/05/22 3. History of hypertension 4. Remote history of ventricular tachycardia after episode of red man syndrome from vancomycin 5. Never smoker 6. Remains unvaccinated against Covid Plan: The patient was seen and examined at the bedside in the emergency room with his present. Chart/diagnostics were reviewed. The case was discussed in detail with Dr. Hannah. Agree with cardioversion in a.m. if patient is still in atrial fibrillation. Patient has been on oral anticoagulation and his left atrial appendage ligated. Patient currently states he feels fantastic, and if he would felt this well this morning he would not have come to the emergency room. Will order incentive spirometry, sternal precautions reinforced. Patient to shower daily. Continue current medication regimen, agree with increase in amiodarone, will increase beta tessa as tolerated. Hopefully will discharge home tomorrow. More recommendations to follow. Thank you for this consult. We will continue to follow along while patient is hospitalized. I have personally seen and examined the patient, performed the documentation and the assessment and plan as written. Number of minutes spent on the visit: 30. Time with Patient: Greater than 30
--- NOTE | 2022-01-22 16:53 | ECHOF ---
Referral Reason:a-fib MEASUREMENTS -------- HEIGHT: 188.0 cm WEIGHT: 127.0 kg BP: 100/74 IVSd: 1.4 cm (0.6 - 1.1) LVIDd: 5.1 cm (3.9 - 5.3) LVPWd: 1.1 cm (0.6 - 1.1) IVSs: 1.6 cm LVIDs: 3.6 cm LVPWs: 2.0 cm MV E Alexis: 1.49 m/s MV DecT: 170 ms MV A Alexis: 0.91 m/s MV E/A Ratio: 1.63 FINDINGS -------- Sinus rhythm. This was a technically difficult study with suboptimal apical views. The left ventricular size is normal. There is moderate concentric left ventricular hypertrophy. O verall left ventricular systolic function is low-normal with, an EF between 50 - 55 %. Septal wall motion is delayed and consistent with prior cardiac surgery. 5.0mg of Lumason was utilized for enhancement of images There is trace mitral regurgitation. MV Repair. There is a small, generalized pericardial effusion present. CONCLUSIONS -------- 1. The left ventricular size is normal. 2. There is moderate concentric left ventricular hypertrophy. 3. Overall left ventricular systolic function is low-normal with, an EF between 50 - 55 %. 4. There is trace mitral regurgitation. 5. MV Repair. 6. There is a small, generalized pericardial effusion present. CALLIOPE PLAYER: Renita Winters RDCS
--- NOTE | 2022-01-22 17:01 | P.CRDCN ---
History of Present Illness History of present illness: 61-year-old gentleman with history of severe mitral regurgitation status post mitral valve repair postop atrial fibrillation presented to Hospital complaining of palpitations. Palpitations started around 4:00 this morning never mild to moderate intensity at rest and is able not going away he came to the hospital. He was found to be in atrial fibrillation with somewhat of a poorly controlled ventricular rate and evaluated him in the emergency room he is an amiodarone 200 mg daily I increased it to 200 twice a day is a nulliparous and was to be started on Cardizem for better rate control along with the metoprolol. I advised the patient to undergo cardioversion if he remains in atrial fibrillation tomorrow Dr. Donovan his primary ship's officer will perform the same. Constitutional: Denies chills. Denies fever. Eyes: Denies blurred vision. Denies pain. Ears, nose, mouth and throat: Denies headache. Denies sore throat. Cardiovascular: Denies chest pain. Denies shortness of breath. Significant for palpitations Respiratory: Denies cough. Gastrointestinal: Denies abdominal pain. Denies diarrhea. Denies nausea. Denies vomiting. Musculoskeletal: Denies myalgias. Integumentary: Denies pruritus. Denies rash. Neurological: Denies numbness. Denies weakness. Psychiatric: Denies anxiety. Denies depression. Endocrine: Denies fatigue. Denies weight change. Genitourinary: Denies burning, hematuria, frequency of urination. Hematological: No anemia or excess bleeding. General: The patient is awake and alert, in no distress, and does not appear acutely ill. Skin: Skin is warm and dry and no rashes or lesions are noted. Eye: Pupils are equal, round and reactive to light, extra-ocular movements are intact; there is normal conjunctiva bilaterally. Ears, nose, mouth and throat: There are moist mucous membranes and no oral lesions. Neck: The neck is supple, there is no tenderness or JVD. Cardiovascular: Irregular No murmur, rub or gallop is appreciated. Respiratory: Lungs are clear to auscultation, respirations are non-labored, breath sounds are equal. Gastrointestinal: Soft, non-distended, non-tender abdomen without masses or organomegaly noted. There is no rebound or guarding present. Bowel sounds are unremarkable. Back: There is no tenderness to palpation in the midline. There is no obvious deformity. Musculoskeletal: Normal ROM, no tenderness, There is no pedal edema. There is no calf tenderness or swelling. Extremities: No edema. Vascular: Femoral pulse is normal. Posterior tibial pulses are normal .Dorsalis pedis is palpable. Neurological: CN II-XII intact. There are no obvious motor or sensory deficits. Speech is normal. Psychiatric: Cooperative, appropriate mood & affect, normal judgment. Labs show that the test was 4.4 creatinine is 0.9 hemoglobin is normal as is the platelet count Assessment and plan: Persistent atrial fibrillation with poorly controlled ventricular rate Mitral regurgitation status post mitral valve repair History of hypertension Advised the patient to undergo cardioversion tomorrow he will have SUDHEER and cardioversion 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, remote hx of pna, venous insufficiency with cellulitis History of Any Multi-Drug Resistant Organisms: None Reported Past Surgical History: Adenoidectomy, Heart Catheterization, Tonsillectomy Additional Past Surgical History / Comment(s): RIGHT BICEP TENDON REPAIR, HEART CATH x2, mitral valve repair 01/05/22 Past Anesthesia/Blood Transfusion Reactions: No Reported Reaction, Motion Sickness Additional Past Anesthesia/Blood Transfusion Reaction / Comment(s): no hx blood transfusion Past Psychological History: No Psychological Hx Reported Smoking Status: Never smoker Past Alcohol Use History: Occasional Past Drug Use History: None Reported - Past Family History Mother Family Medical History: Congestive Heart Failure (CHF), Renal Disease Additional Family Medical History / Comment(s): heart valve repair Father Family Medical History: No Reported History Additional Family Medical History / Comment(s): heart valve repair, at old age Sister(s) Family Medical History: AFIB Brother(s) Additional Family Medical History / Comment(s): heart valve repair Medications and Allergies Home Medications Medication Instructions Recorded Confirmed Type Ascorbic Acid [Vitamin C] 1,000 mg PO BID 11/24/21 01/22/22 History Multivit-Min/FA/Lycopen/Lutein 1 each PO DAILY 11/24/21 01/22/22 History [Centrum Silver Men Tablet] Acetaminophen Tab [Tylenol] 650 mg PO Q4HR PRN tab 01/09/22 01/22/22 Rx Atorvastatin [Lipitor] 40 mg PO DAILY #30 tab 01/09/22 01/22/22 Rx Apixaban [Eliquis] 5 mg PO BID #60 tab 01/10/22 01/22/22 Rx Aspirin 81 mg PO DAILY 01/10/22 01/22/22 Rx Furosemide [Lasix] 40 mg PO DAILY #14 tab 01/10/22 01/22/22 Rx Metoprolol Tartrate [Lopressor] 25 mg PO BID #60 tab 01/10/22 01/22/22 Rx Amiodarone [Cordarone] See Taper PO DIRECTED 01/22/22 01/22/22 History Omeprazole [PriLOSEC] 40 mg PO DAILY 01/22/22 01/22/22 History Allergies Allergy/AdvReac Type Severity Reaction Status Date / Time vancomycin Allergy Unknown RED-MAN Verified 01/22/22 08:19 SYNDROME Physical Exam Vitals: Vital Signs Temp Pulse Pulse Resp BP Pulse Ox 01/22/22 16:54 76 18 98 01/22/22 15:51 77 18 96 01/22/22 14:36 72 18 103/80 98 01/22/22 12:47 73 18 98/81 98 01/22/22 11:53 86 18 114/86 97 01/22/22 11:11 71 18 98/66 96 01/22/22 10:14 94 18 109/81 96 01/22/22 08:44 108 H 18 100/74 96 01/22/22 07:56 128 H 128 H 18 91/66 97 01/22/22 07:22 99.3 F 50 L 18 119/74 97 Intake and Output 01/22/22 01/22/22 01/22/22 06:59 14:59 22:59 Other: Weight 127.006 kg Results 01/22/22 07:56 01/22/22 08:47 Cardiac Enzymes 01/22/22 Range/Units 08:47 AST 19 (17-59) U/L Coagulation 01/22/22 Range/Units 07:56 PT 11.4 (9.0-12.0) sec APTT 27.2 (22.0-30.0) sec CBC 01/22/22 Range/Units 07:56 WBC 11.7 H (3.8-10.6) k/uL RBC 4.04 L (4.30-5.90) m/uL Hgb 13.0 (13.0-17.5) gm/dL Hct 39.2 (39.0-53.0) % Plt Count 507 H D (150-450) k/uL Comprehensive Metabolic Panel 01/22/22 Range/Units 08:47 Sodium 137 (137-145) mmol/L Potassium 4.4 (3.5-5.1) mmol/L Chloride 107 (98-107) mmol/L Carbon Dioxide 25 (22-30) mmol/L BUN 15 (9-20) mg/dL Creatinine 0.96 (0.66-1.25) mg/dL Glucose 97 (74-99) mg/dL Calcium 8.8 (8.4-10.2) mg/dL AST 19 (17-59) U/L ALT 15 (4-49) U/L Alkaline Phosphatase 71 (38-126) U/L Total Protein 6.7 (6.3-8.2) g/dL Albumin 3.6 (3.5-5.0) g/dL Current Medications Generic Name Dose Route Start Last Admin Trade Name Freq PRN Reason Stop Dose Admin Acetaminophen 650 mg 01/22/22 13:04 Acetaminophen Tab 325 Mg Tab PO Q4HR PRN Fever and/ or Mild Pain Amiodarone HCl 200 mg 01/22/22 21:00 Amiodarone 200 Mg Tab PO BID [facility] Apixaban 5 mg 01/22/22 11:15 01/22/22 11:52 Apixaban 5 Mg Tab PO Not Given BID [facility] Protocol Ascorbic Acid 1,000 mg 01/22/22 21:00 Ascorbic Acid 500 Mg Tab PO BID [facility] Aspirin 81 mg 01/22/22 11:15 01/22/22 11:52 Aspirin 81 Mg PO Not Given DAILY [facility] Atorvastatin Calcium 40 mg 01/22/22 11:15 01/22/22 11:52 Atorvastatin 40 Mg Tab PO Not Given DAILY [facility] Furosemide 40 mg 01/22/22 11:15 01/22/22 11:52 Furosemide 40 Mg Tab PO 40 mg DAILY [facility] Administration Diltiazem HCl 125 mg/ Sodium 125 mls @ 5 mls/hr 01/22/22 09:30 01/22/22 10:24 Chloride IV 5 mg/hr .Q24H MERVAT 5 mls/hr Administration 5 MG/HR Sodium Chloride 1,000 mls @ 50 mls/hr 01/22/22 09:30 01/22/22 10:25 Saline 0.9% IV 50 mls/hr .Q20H MERVAT Administration Metoprolol Tartrate 25 mg 01/22/22 11:15 01/22/22 11:52 Metoprolol Tartrate 25 Mg Tab PO Not Given BID MERVAT Multivitamins 1 each 01/23/22 09:00 Multivitamins, Thera 1 Each Tab PO DAILY MERVAT Naloxone HCl 0.2 mg 01/22/22 09:18 Naloxone 0.4 Mg/Ml 1 Ml Vial IV Q2M PRN Opioid Reversal Pantoprazole Sodium 40 mg 01/23/22 07:30 Pantoprazole 40 Mg Tablet PO AC-BRKFST MERVAT Intake and Output 01/22/22 01/22/22 01/22/22 06:59 14:59 22:59 Other: Weight 127.006 kg Patient Weight 01/23/22 06:59 Weight 127.006 kg 01/22/22 07:56 01/22/22 08:47
--- NOTE | 2022-01-22 20:15 | HP ---
HISTORY AND PHYSICAL HISTORY OF PRESENT ILLNESS: 61-year-old white male, history of severe mitral regurgitation status post mitral valve repair, came into the hospital with atrial fibrillation, rapid ventricular response. He was not feeling good at home. He has been on amiodarone 200 a day at home. He is started on Cardizem drip along with metoprolol, possible cardioversion tomorrow. REVIEW OF SYMPTOMS: 14-point review of systems otherwise negative. PHYSICAL EXAMINATION: Vital signs stable. Afebrile. Irregularly irregular rhythm up in the 100s-150s. LUNGS: Clear. GI soft. PSYCH: Fair mood and affect. NEUROLOGIC: Alert and oriented x3. OPHTHALMOLOGIC: Pupils equal, round, and reactive. NEUROLOGIC stable. Cranial nerves are intact. ASSESSMENT: 1. Persistent atrial fibrillation with poorly controlled ventricular rate, mitral regurg, status post valve repair. 2. Hypertension. 3. Possible sleep apnea. PAST MEDICAL HISTORY: See old chart. FAMILY HISTORY: See old chart. All reviewed. 14-point review of systems otherwise negative. See old chart. PLAN: Control A. fib rate. Get the surgeon to see him for the mitral valve to make sure there is no trouble with the valve and he may have a cardioversion down the road here. We will have to see. They increased his amiodarone to 200 b.i.d. to control the heart rate. Please see further orders. MMODL / IJN: [id number] /
[2022-01-22] MEDS: AMIODARONE 200 MG TAB PO SCH (20:48)
[2022-01-22] MEDS: ASCORBIC ACID 500 MG TAB PO SCH (20:48)
[2022-01-23] MEDS: PANTOPRAZOLE 40 MG TABLET PO SCH ×2 (05:45→08:44)
[2022-01-23] MEDS: SODIUM CHLORIDE 0.9% 1,000 ML IV SCH ×2 (05:46→12:39)
[2022-01-23] MEDS: ATORVASTATIN 40 MG TAB PO SCH (08:43)
[2022-01-23] MEDS: METOPROLOL TARTRATE 25 MG TAB PO SCH ×2 (08:43→19:56)
[2022-01-23] MEDS: ASPIRIN 81 MG PO SCH (08:43)
[2022-01-23] MEDS: APIXABAN 5 MG TAB PO SCH ×2 (08:44→19:56)
[2022-01-23] MEDS: FUROSEMIDE 40 MG TAB PO SCH (08:44)
[2022-01-23] MEDS: AMIODARONE 200 MG TAB PO SCH ×2 (08:44→19:56)
[2022-01-23] MEDS: ASCORBIC ACID 500 MG TAB PO SCH ×2 (08:45→19:56)
[2022-01-23] MEDS: MULTIVITAMINS, THERA 1 EACH TAB PO SCH (08:46)
[2022-01-23] MEDS: DILTIAZEM 125 MG in SODIUM CHLORIDE 0.9% 100 ML IV SCH (11:34)
[2022-01-23] MEDS ORDERED: MIDAZOLAM 2 MG/2 ML VIAL ONE (11:57)
[2022-01-23] MEDS ORDERED: PROPOFOL 10 MG/ML 20 ML VIAL IV ONE (11:57)
[2022-01-23] MEDS ORDERED: SODIUM CHLORIDE 0.9% 1,000 ML IV ONE (12:00)
[2022-01-23] MEDS: BENZOCAINE SPRAY 1 CAN MUCOUS MEM ONE ×2 (12:05→12:15)
--- NOTE | 2022-01-23 12:32 | P.PCN ---
Date of Procedure: 01/23/22 Description of Procedure: Indication: [] Procedure Description: After explaining the procedure to the patient, it's risk and complications, blood pressure, heart rate and O2 saturation were monitored. The throat was sprayed with Cetacaine. Patient received sedation per anesthesia department. The probe was introduced into the esophagus without difficulty. Images were obtained. Following that, the probe was removed. There was no immediate complication. Findings: Left atrial size is dilated, closure of left atrial appendage was noted. Left ventricle size is normal. There is mild global hypokinesis, ejection fraction 45-50%. Evidence of mitral valve repair was noted. Aortic valve appears to be normal, tricuspid valve is normal. Descending thoracic aorta appears to be normal. No significant pericardial effusion was noted. Contrast bubble study revealed no evidence of shunting across the intra-atrial septum. Doppler: Pulse-wave and color Doppler were obtained and revealed mild perivalvular mitral regurgitation was mild central mitral regurgitation and mild tricuspid regurgitation. There is no shunting by color Doppler study Conclusion: 1. Mildly dilated left atrium with evidence of closure of the left atrial appendage 2. Mildly impaired left ventricle systolic function 3. Evidence of mitral valve annuloplasty with mild perivalvular regurgitation and mild central regurgitation 4. Mild tricuspid regurgitation 5. No shunting across the intra-atrial septum.
--- NOTE | 2022-01-23 12:34 | P.PCN ---
Date of Procedure: 01/23/22 Description of Procedure: Cardioversion: After explaining the procedure to the patient as well as the risks and the complications. His blood pressure heart rate and O2 saturations were monitored. After obtaining transesophageal echocardiogram and obtaining sedated state per anesthesia department a synchronized biphasic cardioversion using 100 J was performed with christianity of sinus mechanism. There was no immediate complications.
--- NOTE | 2022-01-23 18:36 | PN ---
PROGRESS NOTE Status post mitral valve repair. He went for cardiac ablation today per Dr. Donovan. He is currently in sinus rhythm. Synchronized biphasic cardioversion using 100 joules with congregational of sinus rhythm. No immediate complications. He is currently in sinus rhythm. Blood pressure is 100s over 60s to 70s. Pulse 60s to 70s. O2 98. Appears to be stable medically, sitting up in bed. We are going to hold him overnight and discharge him home in the morning. Cardiovascular S1, S2. Lungs clear. Sinus rhythm. Hematology: Negative Homans. Psych: Fair mood and affect. ASSESSMENT: Status post mitral valve repair with atrial fibrillation, status post cardioversion. The patient stabilized medically. We will possible discharge home in the morning. Monitor him overnight on the monitor. Wait for clearance by Cardiology. MMOANHL / IJN: [id number] /
[2022-01-24 01:45] VITALS: RESP 16
[2022-01-24] MEDS: PANTOPRAZOLE 40 MG TABLET PO SCH (06:24)
[2022-01-24] MEDS: SODIUM CHLORIDE 0.9% 1,000 ML IV SCH ×2 (07:49→12:11)
[2022-01-24 09:41] VITALS: BP 110/55; PULSE 70; TEMP 97.7
[2022-01-24] MEDS: FUROSEMIDE 40 MG TAB PO SCH (09:41)
[2022-01-24] MEDS: APIXABAN 5 MG TAB PO SCH (09:41)
[2022-01-24] MEDS: MULTIVITAMINS, THERA 1 EACH TAB PO SCH (09:41)
[2022-01-24] MEDS: ASPIRIN 81 MG PO SCH (09:41)
[2022-01-24] MEDS: ASCORBIC ACID 500 MG TAB PO SCH (09:41)
[2022-01-24] MEDS: ATORVASTATIN 40 MG TAB PO SCH (09:41)
[2022-01-24] MEDS: METOPROLOL TARTRATE 25 MG TAB PO SCH (09:42)
[2022-01-24] MEDS: AMIODARONE 200 MG TAB PO SCH (09:42)
--- NOTE | 2022-01-24 15:42 | DS ---
DISCHARGE SUMMARY 61-year-old white male who came in with atrial fibrillation, atrial fibrillation, rapid ventricular response, status post mitral valve repair. He was started on Eliquis for blood thinner for atrial fibrillation. He is on GERD medicine, he is on arrhythmia medicine, hypertension medicine. He is sitting up, stable. He was given Cardizem drip when he first arrived. His amiodarone was increased. He then underwent [address] Donovan, Pack Train Driver. He went into sinus rhythm. He has been stable since. Once he is cleared for discharge, I will send him home. MEDICATIONS: Include increase in his amiodarone to 200 b.i.d. multivitamin daily. Ascorbic acid 1000 b.i.d., Prilosec 40 daily, Lipitor 40 daily, aspirin 81 mg daily, Eliquis 5 mg b.i.d., Lasix 40 mg daily, Lopressor 25 b.i.d. CONDITION: Stable. Follow up as an outpatient. Diet regular. Ambulate as tolerated. MMODL / IJN: [id number] /
== END 2022-01-24 12:50 | disposition home or self-care (01) ==
LOC: EC 07:20 → 6NMEDSUR 09:19 → 3SCARD 12:47 → INTOOBSV 01-23 10:49 → OBSVTOIN 01-23 10:49
PROVIDERS: ADMIT Family Medicine; ATTEND Family Medicine
DX: I48.19 Other persistent atrial fibrillation (principal); I11.9 Hypertensive heart disease without heart failure; I08.1 Rheumatic disorders of both mitral and tricuspid valves; D72.829 Elevated white blood cell count, unspecified; I27.20 Pulmonary hypertension, unspecified; J98.11 Atelectasis; K21.9 Gastro-esophageal reflux disease without esophagitis; D64.9 Anemia, unspecified; I87.2 Venous insufficiency (chronic) (peripheral); G43.909 Migraine, unspecified, not intractable, without status migrainosus; E78.5 Hyperlipidemia, unspecified; Z79.01 Long term (current) use of anticoagulants; Z79.82 Long term (current) use of aspirin; Z79.899 Other long term (current) drug therapy; Z88.1 Allergy status to other antibiotic agents; Z87.01 Personal history of pneumonia (recurrent); Z95.818 Presence of other cardiac implants and grafts; Z86.79 Personal history of other diseases of the circulatory system; Z87.2 Personal history of diseases of the skin and subcutaneous tissue; Z98.890 Other specified postprocedural states; Z82.49 Family history of ischemic heart disease and other diseases of the circulatory system; Z84.1 Family history of disorders of kidney and ureter
CPT/HCPCS: 96376; 96365; 96366; 99285; 36415; 93005; 93312; 93308; 93320; 93325; 92960; 80053; 84443; 83735; 85025; 85610; 85730; 71046; G0378 ×4; J2250; J2704; Q9950

== ENCOUNTER 2023-07-03 10:41 | Emergency (ER) | payer BC ==
[2023-07-03 10:47] VITALS: PULSE 55; RESP 16
[2023-07-03] MEDS ORDERED: KETOROLAC 15 MG/ML 1 ML VIAL IM STA (11:31)
--- NOTE | 2023-07-03 11:36 | ED ---
General Adult HPI - General Chief complaint: Extremity Injury, Lower Stated complaint: Lt leg pain and swelling Time Seen by Provider: 07/03/23 11:15 Source: patient Mode of arrival: ambulatory Limitations: no limitations - History of Present Illness Initial comments: 62-year-old male presented to the ED with a chief complaint of left leg pain. Patient notes was stung by multiple bees yesterday on bilateral lower extremities bilateral upper extremities. States last night, started to experience pain and swelling at the lateral side of his left lower leg. Since then, reports pain and swelling have increased in severity. States it is currently an 8 out of 10 in severity. Has not tried any medications for this. Denies fever. Denies chest pain or shortness of breath. No other complaints. - Related Data Home Medications Medication Instructions Recorded Confirmed Ascorbic Acid [Vitamin C] 1,000 mg PO BID 11/24/21 01/22/22 Multivit-Min/FA/Lycopen/Lutein 1 each PO DAILY 11/24/21 01/22/22 [Centrum Silver Men Tablet] Omeprazole [PriLOSEC] 40 mg PO DAILY 01/22/22 01/22/22 Previous Rx's Medication Instructions Recorded Acetaminophen Tab [Tylenol] 650 mg PO Q4HR PRN tab 01/09/22 Atorvastatin [Lipitor] 40 mg PO DAILY #30 tab 01/09/22 Apixaban [Eliquis] 5 mg PO BID #60 tab 01/10/22 Aspirin 81 mg PO DAILY 01/10/22 Furosemide [Lasix] 40 mg PO DAILY #14 tab 01/10/22 Metoprolol Tartrate [Lopressor] 25 mg PO BID #60 tab 01/10/22 Amiodarone [Cordarone] 200 mg PO BID 30 Days #60 tab 01/24/22 methylPREDNISolone Dose Pack 4 mg PO DIRECTED #21 tab 07/03/23 [Medrol Dose Pack] Allergies Allergy/AdvReac Type Severity Reaction Status Date / Time vancomycin Allergy Unknown RED-MAN Verified 07/03/23 10:44 SYNDROME Review of Systems ROS Statement: Those systems with pertinent positive or pertinent negative responses have been documented in the HPI. ROS Other: All systems not noted in ROS Statement are negative. 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, remote hx of pna, venous insufficiency with cellulitis, mitral valve replaced 01/05/22 History of Any Multi-Drug Resistant Organisms: None Reported Past Surgical History: Adenoidectomy, Heart Catheterization, Tonsillectomy Additional Past Surgical History / Comment(s): RIGHT BICEP TENDON REPAIR, HEART CATH x2, mitral valve repair 01/05/22 Past Anesthesia/Blood Transfusion Reactions: No Reported Reaction, Motion Sickness Additional Past Anesthesia/Blood Transfusion Reaction / Comment(s): no hx blood transfusion Past Psychological History: No Psychological Hx Reported Smoking Status: Never smoker Past Alcohol Use History: Occasional Past Drug Use History: None Reported - Past Family History Mother Family Medical History: Congestive Heart Failure (CHF), Renal Disease Additional Family Medical History / Comment(s): heart valve repair Father Family Medical History: No Reported History Additional Family Medical History / Comment(s): heart valve repair, at old age Sister(s) Family Medical History: AFIB Brother(s) Additional Family Medical History / Comment(s): heart valve repair General Exam Limitations: no limitations General appearance: alert, in no apparent distress Eye exam: Present: normal appearance Neck exam: Present: normal inspection Respiratory exam: Present: normal lung sounds bilaterally Cardiovascular Exam: Present: regular rate, normal rhythm GI/Abdominal exam: Present: soft Extremities exam: Present: other (No calf tenderness to palpation. Negative Homans sign. DP/PT pulses 2+. 2 areas of soft tissue masses on the lateral aspect of the left lower leg. No pain out of proportion on light touch. No pain on passive flexion. No significant warmth.) Course Vital Signs 07/03/23 07/03/23 10:44 12:08 Temperature 98.2 F 98.1 F Pulse Rate 55 L 55 L Respiratory 16 16 Rate Blood Pressure 150/87 134/81 O2 Sat by Pulse 97 98 Oximetry Medical Decision Making - Medical Decision Making Was pt. sent in by a medical professional or institution (, PA, PILE TRIMMER, urgent care, hospital, or retirement...) When possible be specific @ -No Did you speak to anyone other than the patient for history (EMS, parent, family, police, friend...)? What history was obtained from this source @ -No Did you review nursing and triage notes (agree or disagree)? Why? @ -I reviewed and agree with nursing and triage notes Were old charts reviewed (outside hosp., previous admission, EMS record, old EKG, old radiological studies, urgent care reports/EKG's, retirement records)? Report findings @ -No old charts were reviewed Differential Diagnosis (chest pain, altered mental status, abdominal pain women, abdominal pain men, vaginal bleeding, weakness, fever, dyspnea, syncope, headache, dizziness, GI bleed, back pain, seizure, CVA, palpatations, mental health, musculoskeletal)? @ -Differential Musculoskeletal Muscular strain, contusion, ligament sprain, fracture, arthritis, septic arthritis, bursitis, cellulitis, muscle spasm, nerve compression, DVT, arterial occlusion, herpes zoster, electrolyte abnormality, tumor.... This is not meant to be in all inclusive list EKG interpreted by me (3pts min.). @ -None X-rays interpreted by me (1pt min.). @ -None done CT interpreted by me (1pt min.). @ -None done U/S interpreted by me (1pt. min.). @ -Ultrasound shows no evidence of DVT. What testing was considered but not performed or refused? (CT, X-rays, U/S, labs)? Why? @ -None What meds were considered but not given or refused? Why? @ -None Did you discuss the management of the patient with other professionals (professionals i.e. , PA, PILE TRIMMER, lab, RT, psych nurse, criminal justice social worker, fabrication mig welder, teacher, intelligence officer basic, complex case manager)? Give summary @ -No Was smoking cessation discussed for >3mins.? @ -No Was critical care preformed (if so, how long)? @ -No Were there social determinants of health that impacted care today? How? (Homelessness, low income, unemployed, alcoholism, drug addiction, transportation, low edu. Level, literacy, decrease access to med. care, fdc, rehab)? @ -No Was there de-escalation of care discussed even if they declined (Discuss DNR or withdrawal of care, Hospice)? DNR status @ -No What co-morbidities impacted this encounter? (DM, HTN, Smoking, COPD, CAD, Cancer, CVA, ARF, Chemo, Hep., AIDS, mental health diagnosis, sleep apnea, morbid obesity)? @ -None Was patient admitted / discharged? Hospital course, mention meds given and route, prescriptions, significant lab abnormalities, going to OR and other pertinent info. @ -Discharged. Ultrasound shows no evidence of DVT. Exam in consistent with compartment syndrome. Patient has no pain with passive flexion. No pain out of proportion on light touch. Extremity is not significantly swollen or warm. Swelling likely due to local reaction. Will be discharged home with prescription for Medrol Dosepak. Discussed return precautions with patient who verbalizes agreement. Undiagnosed new problem with uncertain prognosis? @ -No Drug Therapy requiring intensive monitoring for toxicity (Heparin, Nitro, Insulin, Cardizem)? @ -No Were any procedures done? @ -No Diagnosis/symptom? @ -Swelling of the left lower leg/pain Acute, or Chronic, or Acute on Chronic? @ -Acute Uncomplicated (without systemic symptoms) or Complicated (systemic symptoms)? @ -Uncomplicated Side effects of treatment? @ -No Exacerbation, Progression, or Severe Exacerbation? @ -No Poses a threat to life or bodily function? How? (Chest pain, [place], MT, pneumonia, PE, COPD, DKA, ARF, appy, cholecystitis, CVA, Diverticulitis, Homicidal, Suicidal, threat to staff... and all critical care pts) @ -No Disposition Clinical Impression: Leg pain, Leg swelling Disposition: HOME SELF-CARE Condition: Good Additional Instructions: Please return to the Emergency Department if symptoms worsen or any other concerns. Follow up with PCP. Prescriptions: methylPREDNISolone Dose Pack [Medrol Dose Pack] 4 mg PO DIRECTED #21 tab Is patient prescribed a controlled substance at d/c from ED?: No Referrals: Brendon Bhatia MD [Primary Care Provider] - 1-2 days Time of Disposition: 12:24
--- NOTE | 2023-07-03 12:09 | US ---
EXAMINATION TYPE: US venous doppler duplex LE LT DATE OF EXAM: 07/03/2023 11:31 AM COMPARISON: NONE CLINICAL INDICATION: Male, 62 years old with history of r/o DVT/ 2 soft tissue masses on calf; pain SIDE PERFORMED: Left TECHNIQUE: The lower extremity deep venous system is examined utilizing real time linear array sonog vannesa with graded compression, doppler sonography and color-flow sonography. VESSELS IMAGED: Common Femoral Vein Deep Femoral Vein Greater Saphenous Vein * Femoral Vein Popliteal Vein Small Saphenous Vein * Proximal Calf Veins (* superficial vessels) Grayscale, color doppler, spectral doppler imaging performed of the deep veins of the lower extremiti es. There is normal flow, compressibility, vascular waveforms. Left Leg: Negative for DVT IMPRESSION: No deep venous thrombosis of the left lower extremity.
[2023-07-03 12:21] VITALS: BP 134/81; TEMP 98.1
== END 2023-07-03 12:32 | disposition home or self-care (01) ==
LOC: EC 10:41
DX: M79.605 Pain in left leg (principal); I48.91 Unspecified atrial fibrillation; I10 Essential (primary) hypertension; K21.9 Gastro-esophageal reflux disease without esophagitis; Z88.1 Allergy status to other antibiotic agents; Z79.899 Other long term (current) drug therapy
CPT/HCPCS: 93971; 99283; 96372; J1885